=== PATIENT | male | born 1980 | race African-American/Black ===

== ENCOUNTER 2018-05-06 19:29 | Emergency (ER) | payer OTHER ==
[~2018-05-06] VITALS: Ht 177.8 cm; Wt 49.9 kg
--- NOTE | 2018-05-06 21:33 | Emergency Room Report ---
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 Patient also reports swelling and tenderness to the right midfoot times one day. Patient states that he may have overworked himself ambulating yesterday which could've caused his symptoms. Patient denies new acute symptoms otherwise. Patient states that he has had difficulty multiple boarding tears and many are "filthy and unlivable for him." Patient states that he would like to be admitted to a new nursing facility preferably one that is nonsmoking. Patient denies trauma or fall otherwise he denies fevers, chills. 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 He is also requesting splints that he can eat his food. Denies CP, Palpitations, LOC, AMS, dizziness, Changes in Vision, Sensation, paresthesias, or a sudden severe headache. Allergies: Coded Allergies: No Known Allergies (Unverified , 05/06/18) Patient History Past Medical History: see triage record Past Surgical History: none Pertinent Family History: none Reviewed Nursing Documentation: PMH: Agreed; PSxH: Agreed Nursing Documentation-PMH Past Medical History: No History, Except For Hx Neurological Problems: No - "Chronic weight loss" "Locked Jaw" Review of Systems All Other Systems: limited - poor pt. cooperation Physical Exam Vital Signs Date Time Temp Pulse Resp B/P (MAP) Pulse Ox O2 Delivery O2 Flow Rate FiO2 05/06/18 19:35 97.7 60 16 114/85 98 Room Air 97.7 Sp02 EP Interpretation: reviewed, normal General Appearance: no apparent distress, alert, GCS 15, non-toxic, thin, Chronically Ill Head: normocephalic, atraumatic Eyes: bilateral eye normal inspection, bilateral eye PERRL ENT: hearing grossly normal, normal voice, other - spastic neck, frozen jaw. Neck: full range of motion, no bony tend Respiratory: chest non-tender, lungs clear, normal breath sounds, no wheezing, speaking full sentences Cardiovascular #1: regular rate, rhythm, no edema, normal capillary refill Gastrointestinal: normal bowel sounds, non tender, soft Rectal: deferred Musculoskeletal: back normal, normal range of motion, tender - TTP to the midplantar aspect of the right foot, mild swelling noted, no erythema, no increased temperature to palpation, no obvious FB, no open wounds Neurologic: alert, oriented x3, responsive, motor strength/tone normal, sensory intact, speech normal, grossly normal Psychiatric: judgement/insight normal Skin: normal color, no rash, warm/dry, well hydrated Medical Decision Making PA Attestation Dr. Gaona is my supervising Physician whom patient management has been discussed with. Diagnostic Impression: Primary Impression: Malnutrition Qualified Codes: E46 - Unspecified protein-calorie malnutrition Additional Impressions: Foot contusion Qualified Codes: S90.31XA - Contusion of right foot, initial encounter Limited jaw ROM ER Course 37-year-old male presents emergency department complaining of inability to eat 2 years secondary to LOC jaw. Patient also reports swelling and tenderness to the right midfoot times one day. Patient states that he may have overworked himself ambulating yesterday which could've caused his symptoms. Patient denies new acute symptoms otherwise. Patient states that he has had difficulty multiple boarding tears and many are "filthy and unlivable for him." Patient states that he would like to be admitted to a new nursing facility preferably one that is nonsmoking. Patient denies trauma or fall otherwise he denies fevers, chills. 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 He is also requesting splints that he can eat his food. Denies CP, Palpitations, LOC, AMS, dizziness, Changes in Vision, Sensation, paresthesias, or a sudden severe headache. Ddx considered but are not limited to Fracture, dislocation, contusion, Sprain/ Strain/Spasm, Malingering, malnutrition, failure to thrive just to name a few. Vital signs: are WNL, pt. is afebrile H&PE are most consistent with musculoskeletal injury will perform imaging to r/ o fractures/dislocations. - This patient is nontoxic in appearance he is in no acute distress he is very thin and appears to have chronic condition. Patient is well kept otherwise, alert and speaking full sentences. I do not suspect an acute emergent condition at this time but we will evaluate for new onset of foot symptoms. ORDERS: - X-ray Right Foot - negative for fx, Dislocation, or significant soft tissue injury, per preliminary read in ED, and signed by COMPA Alcantara, my supervising physician has reviewed, and agrees with my interpretation. ED INTERVENTIONS: - this patient refuses to have blood work performed, states he will only give urine. This patient was noted to have a hospital wrist band for [facility] patient did not want to discuss information regarding his visit. Patient also was refusing any laboratory work at today's visit. Patient medical records were obtained from [facility] emergency Department patient was there at approximately 9:00 this morning presenting with similar complaints he was evaluated and noted to not be having an acute emergency. Pt. also was refusing blood work at ED visit this am according to pt. medical records. It was charted that patient was seen by director of social media marketing who attempted to replace patient pack Boarding care for which he did not want to go to. It was also noted in the chart that patient was discharged and he returned back into the waiting room requesting to be evaluated again. Was charted several times that patient was demanding to be placed in a new facility because he is not happy with his current facility. I discussed with this patient that he is been evaluated by 2 different emergency departments at this time he needs to utilize the resources that were given to him by the director of social media marketing at [facility]. I also stated that I would provide additional resources that he can choose from. DISCHARGE: At this time pt. is stable for d/c to home. Will provide printed patient care instructions, and any necessary prescriptions. Care plan and follow up instructions have been discussed with the patient prior to discharge. Other X-Ray Diagnostic Results Other X-Ray Diagnostic Results : X-Ray ordered: right foot # of Views/Limited Vs Complete: 3 View Indication: Pain EP Interpretation: Yes COMPA Xray: Interpretation reviewed, by supervising MD, and agrees with findings. Interpretation: no dislocation, no soft tissue swelling, no fractures Impression: No acute disease Electronically Signed by: Rosa Alcantara PA-C Last Vital Signs Date Time Temp Pulse Resp B/P (MAP) Pulse Ox O2 Delivery O2 Flow Rate FiO2 05/06/18 19:35 97.7 60 16 114/85 98 Room Air 97.7 Disposition: HOME, SELF-CARE Condition: Stable Patient Instructions: Medical Screening Exam Additional Instructions: Please utilize resources that were given to this morning by [facility] director of social media marketing.. Included are also some additional resources for you. Take any previously prescribed medications as directed. Follow up with a Primary Care Provider in 3-5 days, even if your symptoms have resolved. - Please note that this Emergency Department Report was dictated using Tap2printvessel master technology software, occasionally this can lead to erroneous entry secondary to interpretation by the dictation equipment. Rosa Alcantara May 06, 2018 21:32
[2018-05-06 22:13] VITALS: BP 114/85
--- NOTE | 2018-05-07 11:04 | Diagnostic Imaging Report ---
Indication: Left foot pain Technique: 3 views left foot Comparison: none Findings: There are small plantar and calcaneal spurs. No acute fractures. No dislocations. The joint spaces are preserved Impression: Negative
== END 2018-05-06 22:15 | disposition home or self-care (01) ==
LOC: EMR 20:15
DX: E46 Unspecified protein-calorie malnutrition (principal); S90.121A Contusion of right lesser toe(s) without damage to nail, initial encounter
CPT/HCPCS: 99283

== ENCOUNTER 2018-10-10 16:03 | Inpatient (IN) | payer OTHER ==
[~2018-10-10] VITALS: Ht 180.3 cm; Wt 59.0 kg
[2018-10-10 16:03] VITALS: BP 112/76
--- NOTE | 2018-10-10 16:20 | Emergency Room Report ---
History of Present Illness General Chief Complaint: Generalized Weakness Source: Patient, Medical Record Present Illness HPI Patient is a 37-year-old male who presented after increased generalized weakness. Patient reportedly had been noted to be the debilitated after a prior CVA. Patient prior history of depression and anxiety. Patient been noted to have increased difficulty with eating patient reports not being able to open his mouth since prior CVA. The patient states that he's been unable to get out of bed for several days. The patient does not report taking any medications recently. The patient was the previously residing [facility].Patient was noted to be type II diabetic. Allergies: Coded Allergies: No Known Allergies (Unverified , 05/06/18) Patient History Past Medical History: see triage record Reviewed Nursing Documentation: PMH: Agreed; PSxH: Agreed Nursing Documentation-PMH Past Medical History: No History, Except For Hx Cardiac Problems: No - anemia Hx COPD: Yes Hx Diabetes: Yes - type II Hx Neurological Problems: No - "Chronic weight loss" "Locked Jaw" Hx Cerebrovascular Accident: Yes Review of Systems All Other Systems: negative except mentioned in HPI Physical Exam Vital Signs Date Time Temp Pulse Resp B/P (MAP) Pulse Ox O2 Delivery O2 Flow Rate FiO2 10/10/18 15:58 97.9 108 18 115/81 100 Nasal Cannula 2.0 Sp02 EP Interpretation: reviewed, normal General Appearance: normal inspection, well appearing, no apparent distress, alert, GCS 15, thin, Chronically Ill Head: atraumatic ENT: hearing grossly normal, normal voice, other - decreased ROM, doesn't open mouth Neck: normal inspection, full range of motion, supple, no bony tend Respiratory: normal inspection, lungs clear, normal breath sounds, no respiratory distress, no retraction, no wheezing Cardiovascular #1: regular rate, rhythm, no edema Gastrointestinal: normal inspection, normal bowel sounds, non tender, soft, no guarding, no hernia Genitourinary: no CVA tenderness Musculoskeletal: normal inspection, back normal, normal range of motion Neurologic: normal inspection, alert, oriented x3, responsive, rehab specialist III-XII nml as tested, speech normal Psychiatric: normal inspection, judgement/insight normal, mood/affect normal, depressed affect Skin: normal inspection, normal color, no rash Medical Decision Making Diagnostic Impression: Primary Impression: Episode of generalized weakness Additional Impression: Failure to thrive ER Course Patient presented for generalized weakness. Differential diagnosis included was not limited to anemia, urinary tract infection, electrolyte abnormality, hypothyroidism, myocardial infarction, myasthenia gravis, dehydration, among others. Because of complexity of patient's case laboratory testing and imaging studies were ordered. The patient started on IV hydration. Patient was noted to be somewhat poor restrained due to prior CVA. Patient was noted to be mildly tachycardic. The patient be admitted for further management of weakness and malnutrition. Dr. Rolando Albright was contacted for inpatient management due to primary care physician. Labs Test 10/10/18 16:40 White Blood Count 7.7 K/UL (4.8-10.8) Red Blood Count 3.75 M/UL (4.70-6.10) Hemoglobin 11.1 G/DL (14.2-18.0) Hematocrit 32.1 % (42.0-52.0) Mean Corpuscular Volume 86 FL (80-99) Mean Corpuscular Hemoglobin 29.6 PG (27.0-31.0) Mean Corpuscular Hemoglobin Concent 34.6 G/DL (32.0-36.0) Red Cell Distribution Width 10.9 % (11.6-14.8) Platelet Count 642 K/UL (150-450) Mean Platelet Volume 5.6 FL (6.5-10.1) Neutrophils (%) (Auto) 50.3 % (45.0-75.0) Lymphocytes (%) (Auto) 40.0 % (20.0-45.0) Monocytes (%) (Auto) 6.3 % (1.0-10.0) Eosinophils (%) (Auto) 1.1 % (0.0-3.0) Basophils (%) (Auto) 2.2 % (0.0-2.0) Prothrombin Time 11.4 SEC (9.30-11.50) Prothromb Time International Ratio 1.1 (0.9-1.1) Activated Partial Thromboplast Time 33 SEC (23-33) Sodium Level 136 MMOL/L (136-145) Potassium Level 4.1 MMOL/L (3.5-5.1) Chloride Level 103 MMOL/L (98-107) Carbon Dioxide Level 28 MMOL/L (21-32) Anion Gap 5 mmol/L (5-15) Blood Urea Nitrogen 8 mg/dL (7-18) Creatinine 0.7 MG/DL (0.55-1.30) Estimat Glomerular Filtration Rate > 60 mL/min (>60) Glucose Level 104 MG/DL (74-106) Calcium Level 8.4 MG/DL (8.5-10.1) Total Bilirubin 0.3 MG/DL (0.2-1.0) Aspartate Amino Transf (AST/SGOT) 12 U/L (15-37) Alanine Aminotransferase (ALT/SGPT) 7 U/L (12-78) Alkaline Phosphatase 79 U/L (46-116) Total Protein 9.3 G/DL (6.4-8.2) Albumin 2.3 G/DL (3.4-5.0) Globulin 7.0 g/dL Albumin/Globulin Ratio 0.3 (1.0-2.7) Thyroid Stimulating Hormone (TSH) 0.847 uiU/mL (0.358-3.740) Acetaminophen Level < 2 MCG/ML (10-30) Serum Alcohol < 3 mg/dL Acetone Level Negative (NEGATIVE) Last Vital Signs Date Time Temp Pulse Resp B/P (MAP) Pulse Ox O2 Delivery O2 Flow Rate FiO2 10/10/18 15:58 97.9 108 18 115/81 100 Nasal Cannula 2.0 Status: unchanged Disposition: ADMITTED INPATIENT Condition: Serious Scripts Unable to Obtain Active Prescriptions or Reported MedSahil Ingram MD Oct 10, 2018 16:20
[2018-10-10] MEDS ORDERED: Ketorolac 30mg Inj IV ONE (16:45)
[2018-10-10 17:00] VITALS: BP 120/77
[2018-10-10 17:00] LABS: BASOPHILS % (AUTO) 2.2 % (0.0-2.0); EOSINOPHILS % (AUTO) 1.1 % (0.0-3.0); HEMATOCRIT 32.1 % (42.0-52.0); HEMOGLOBIN 11.1 G/DL (14.2-18.0); MEAN CORPUSCULAR VOLUME 86 FL (80-99); MONOCYTES % (AUTO) 6.3 % (1.0-10.0); NEUTROPHILS % (AUTO) 50.3 % (45.0-75.0); PLATELET COUNT 642 K/UL (150-450); RED BLOOD COUNT 3.75 M/UL (4.70-6.10); RED CELL DISTRIBUTION WIDTH 10.9 % (11.6-14.8); WHITE BLOOD COUNT 7.7 K/UL (4.8-10.8)
[2018-10-10 17:12] LABS: INR 1.1 (0.9-1.1)
[2018-10-10 17:19] LABS: ANION GAP 5 mmol/L (5-15); BLOOD UREA NITROGEN 8 mg/dL (7-18); CALCIUM 8.4 MG/DL (8.5-10.1); CARBON DIOXIDE 28 MMOL/L (21-32); CHLORIDE 103 MMOL/L (98-107); CREATININE 0.7 MG/DL (0.55-1.30); POTASSIUM 4.1 MMOL/L (3.5-5.1); SODIUM 136 MMOL/L (136-145)
[2018-10-10 17:32] LABS: ALANINE AMINOTRANSFERASE 7 U/L (12-78); ALBUMIN 2.3 G/DL (3.4-5.0); ALBUMIN/GLOBULIN RATIO 0.3 (1.0-2.7); ALKALINE PHOSPHATASE 79 U/L (46-116); ASPARTATE AMINO TRANSFERASE 12 U/L (15-37); BILIRUBIN,TOTAL 0.3 MG/DL (0.2-1.0)
[2018-10-10 18:15] VITALS: BP 118/73
[2018-10-10 20:00] VITALS: BP 101/63
[2018-10-10] MEDS ORDERED: Miralax 17gm pkt ORAL PRN (21:30)
[2018-10-10] MEDS ORDERED: Mylanta II UD 30ml ORAL PRN (21:30)
[2018-10-10] MEDS ORDERED: LORazepam Inj 2mg/ml 1ml IV PRN (21:30)
[2018-10-10] MEDS ORDERED: Zolpidem 5mg tab ORAL PRN (21:30)
[2018-10-10] MEDS: Morphine Sulfate 2mg/ml Inj IVP PRN (21:44)
[2018-10-10 21:49] VITALS: BP 100/68
[2018-10-11 04:00] VITALS: BP 101/59
[2018-10-11] MEDS: NovoLOG Insulin Flexpen SUBQ SCH ×4 (06:30→20:31)
[2018-10-11 08:00] VITALS: BP 137/69
[2018-10-11] MEDS: Heparin 5000 units/ml inj SUBQ SCH ×2 (09:21→20:30)
--- NOTE | 2018-10-11 10:11 | Diagnostic Imaging Report ---
Indication: Shortness of breath Technique: One view of the chest Comparison: none Findings: Lungs and pleural spaces are clear. Heart size is normal Impression: No acute process
--- NOTE | 2018-10-11 11:35 | GI Initial Consult Note ---
History of Present Illness General Date patient seen: Oct 11, 2018 Time patient seen: 11:30 Reason for Hospitalization: Generalized Weakness Referring physician: EL ANTONIO Reason for Consultation: DYSPHAGIA Present Illness HPI Patient is a 37-year-old male who presented after increased generalized weakness. Patient reportedly had been noted to be the debilitated after a prior CVA. Patient prior history of depression and anxiety. Patient been noted to have increased difficulty with eating patient reports not being able to open his mouth since prior CVA. The patient states that he's been unable to get out of bed for several days. The patient does not report taking any medications recently. The patient was the previously residing at a [facility].Patient was noted to be type II diabetic. GI consulted for dysphagia. Pt seen, awake A&Ox4 NAD with reports of abdominal discomfort. Denied any N/V/D or constipation. Presents with anemia. No history of endoscopy / colonoscopy. Home Meds Unable to Obtain Active Prescriptions or Reported Meds Med list reviewed/reconciled: Yes Allergies: Coded Allergies: No Known Allergies (Unverified , 05/06/18) Patient History History Provided By: Patient, Medical Record PMH Narrative Past Medical History: see triage record Reviewed Nursing Documentation: PMH: Agreed; PSxH: Agreed Nursing Documentation-PMH Past Medical History: No History, Except For Hx Cardiac Problems: No - anemia Hx COPD: Yes Hx Diabetes: Yes - type II Hx Neurological Problems: No - "Chronic weight loss" "Locked Jaw" Hx Cerebrovascular Accident: Yes Social History: Denies: smoking, alcohol use, drug use, other Review of Systems All Other Systems: negative except mentioned in HPI Physical Exam Vital Signs Date Time Temp Pulse Resp B/P (MAP) Pulse Ox O2 Delivery O2 Flow Rate FiO2 10/10/18 15:58 97.9 108 18 115/81 100 Nasal Cannula 2.0 Sp02 EP Interpretation: reviewed, normal Labs Laboratory Tests Test 10/10/18 16:40 White Blood Count 7.7 K/UL (4.8-10.8) Red Blood Count 3.75 M/UL (4.70-6.10) L Hemoglobin 11.1 G/DL (14.2-18.0) L Hematocrit 32.1 % (42.0-52.0) L Mean Corpuscular Volume 86 FL (80-99) Mean Corpuscular Hemoglobin 29.6 PG (27.0-31.0) Mean Corpuscular Hemoglobin Concent 34.6 G/DL (32.0-36.0) Red Cell Distribution Width 10.9 % (11.6-14.8) L Platelet Count 642 K/UL (150-450) H Mean Platelet Volume 5.6 FL (6.5-10.1) L Neutrophils (%) (Auto) 50.3 % (45.0-75.0) Lymphocytes (%) (Auto) 40.0 % (20.0-45.0) Monocytes (%) (Auto) 6.3 % (1.0-10.0) Eosinophils (%) (Auto) 1.1 % (0.0-3.0) Basophils (%) (Auto) 2.2 % (0.0-2.0) H Prothrombin Time 11.4 SEC (9.30-11.50) Prothromb Time International Ratio 1.1 (0.9-1.1) Activated Partial Thromboplast Time 33 SEC (23-33) Sodium Level 136 MMOL/L (136-145) Potassium Level 4.1 MMOL/L (3.5-5.1) Chloride Level 103 MMOL/L (98-107) Carbon Dioxide Level 28 MMOL/L (21-32) Anion Gap 5 mmol/L (5-15) Blood Urea Nitrogen 8 mg/dL (7-18) Creatinine 0.7 MG/DL (0.55-1.30) Estimat Glomerular Filtration Rate > 60 mL/min (>60) Glucose Level 104 MG/DL (74-106) Calcium Level 8.4 MG/DL (8.5-10.1) L Total Bilirubin 0.3 MG/DL (0.2-1.0) Aspartate Amino Transf (AST/SGOT) 12 U/L (15-37) L Alanine Aminotransferase (ALT/SGPT) 7 U/L (12-78) L Alkaline Phosphatase 79 U/L (46-116) Total Protein 9.3 G/DL (6.4-8.2) H Albumin 2.3 G/DL (3.4-5.0) L Globulin 7.0 g/dL Albumin/Globulin Ratio 0.3 (1.0-2.7) L Thyroid Stimulating Hormone (TSH) 0.847 uiU/mL (0.358-3.740) Acetaminophen Level < 2 MCG/ML (10-30) L Serum Alcohol < 3 mg/dL Acetone Level Negative (NEGATIVE) General Appearance: well appearing, no apparent distress, alert, thin Head: normocephalic EENT: PERRL/EOMI, normal ENT inspection Neck: supple Respiratory: normal breath sounds, no respiratory distress Cardiovascular: normal rate Gastrointestinal: normal inspection, non tender, soft, normal bowel sounds, non -distended Rectal: deferred Genitourinary: deferred Musculoskeletal: normal inspection, back normal Neurologic: normal inspection, alert, oriented x3, responsive Psychiatric: normal inspection, judgement/insight normal, memory normal Skin: normal inspection, normal color, no rash, warm/dry, palpation normal, well hydrated Lymphatic: normal inspection, no adenopathy Current Medications Current Medications Medications (Trade) Dose Ordered Sig/Tresa Route PRN Reason Start Time Stop Time Status Last Admin Dose Admin Acetaminophen (Tylenol) 650 mg Q4H PRN ORAL fever 10/10/18 21:30 11/09/18 21:29 Al Hydroxide/Mg Hydroxide (Mylanta II) 30 ml Q6H PRN ORAL dyspepsia 10/10/18 21:30 11/09/18 21:29 Dextrose (Dextrose 50%) 25 ml Q30M PRN IV Hypoglycemia 10/10/18 21:30 11/09/18 21:29 Dextrose (Dextrose 50%) 50 ml Q30M PRN IV Hypoglycemia 10/10/18 21:30 11/09/18 21:29 Heparin Sodium (Porcine) (Heparin 5000 units/ml) 5,000 units EVERY 12 HOURS SUBQ 10/11/18 09:00 11/10/18 08:59 10/11/18 09:21 Insulin Aspart (NovoLOG) BEFORE MEALS AND HS SUBQ 10/11/18 06:30 11/10/18 06:29 Lorazepam (Ativan 2mg/ml 1ml) 0.5 mg Q4H PRN IV For Anxiety 10/10/18 21:30 10/17/18 21:29 Morphine Sulfate (Morphine Sulfate) 1 mg EVERY 4 HOURS PRN IVP For Pain 10/10/18 21:30 10/17/18 21:29 10/10/18 21:44 Ondansetron HCl (Zofran) 4 mg Q6H PRN IVP Nausea & Vomiting 10/10/18 21:30 11/09/18 21:29 Polyethylene Glycol (Miralax) 17 gm HSPRN PRN ORAL Constipation 10/10/18 21:30 11/09/18 21:29 Risperidone (RisperDAL) 1 mg BID ORAL 10/11/18 09:00 11/10/18 08:59 10/11/18 09:19 Zolpidem Tartrate (Ambien) 5 mg HSPRN PRN ORAL Insomnia 10/10/18 21:30 10/17/18 21:29 10/10/18 21:43 GI: Plan Problems: (1) Dysphagia (2) Severe malnutrition (3) Anemia (4) Episode of generalized weakness (5) Failure to thrive Plan s/p CVA PEG if necessary supportive care at this time ST evaluation ordered calorie count anemia work up OB stool r/o GI bleed monitor H&H, prn transfusions bowel regime >> colace daily ppi fu labs Discussed with Dr. Wilson. Thank you for this patient referral, we will follow. The patient was seen and examined at bedside and all new and available data was reviewed in the patients chart. I agree with the above findings, impression and plan. (Patient seen earlier today. Signature stamp does not reflect patient encounter time.). - MD Yolanda [facility] [employer] Oct 11, 2018 11:35
[2018-10-11 12:00] VITALS: BP 110/63
--- NOTE | 2018-10-11 14:50 | Consultation ---
History of Present Illness General Date patient seen: Oct 11, 2018 Chief Complaint: Generalized Weakness Referring physician: EL ANTONIO Reason for Consultation: DYSPHAGIA Present Illness HPI 37-year-old male with hx of CVA, DM, history of depression and anxiety, presented to ER with CC of increased generalized weakness. He had increased difficulty with eating patient reports not being able to open his mouth since prior CVA. The patient states that he's been unable to get out of bed for several days. Allergies: Coded Allergies: No Known Allergies (Unverified , 05/06/18) Medication History Unable to Obtain Active Prescriptions or Reported Meds Patient History Healthcare decision maker Resuscitation status Full Code Advanced Directive on File Past Medical/Surgical History Past Medical/Surgical History: (1) Diabetes mellitus (2) History of CVA (cerebrovascular accident) Review of Systems All Other Systems: negative except mentioned in HPI Physical Exam General Appearance: cachetic Lines, tubes and drains: peripheral HEENT: normocephalic, atraumatic Neck: non-tender, normal alignment Respiratory/Chest: chest wall non-tender, lungs clear Cardiovascular/Chest: normal peripheral pulses, normal rate Genitourinary/Rectal: normal genital exam, normal prostate exam Last 24 Hour Vital Signs Date Time Temp Pulse Resp B/P (MAP) Pulse Ox O2 Delivery O2 Flow Rate FiO2 10/11/18 08:00 98.1 82 19 137/69 (91) 98 10/11/18 04:00 96.8 62 16 101/59 (73) 100 10/10/18 23:11 Room Air 10/10/18 21:49 98.1 76 17 100/68 (79) 97 10/10/18 20:44 97.9 96 15 101/63 97 Room Air 2.0 10/10/18 20:00 97.9 96 15 101/63 97 Room Air 2.0 10/10/18 18:15 97.9 96 15 118/73 96 Room Air 10/10/18 17:00 98.0 86 12 120/77 100 Room Air 10/10/18 16:03 95 17 Room Air 10/10/18 16:03 98.0 95 17 112/76 100 Nasal Cannula 2.0 10/10/18 15:58 97.9 108 18 115/81 100 Nasal Cannula 2.0 Intake and Output 10/10/18 10/11/18 19:00 07:00 Intake Total 1000 ml 600 ml Output Total 600 ml Balance 1000 ml 0 ml Intake Oral 600 ml IV Total 1000 ml Output Urine Total 600 ml # Voids 1 1 Laboratory Tests Test 10/10/18 16:40 White Blood Count 7.7 K/UL (4.8-10.8) Red Blood Count 3.75 M/UL (4.70-6.10) L Hemoglobin 11.1 G/DL (14.2-18.0) L Hematocrit 32.1 % (42.0-52.0) L Mean Corpuscular Volume 86 FL (80-99) Mean Corpuscular Hemoglobin 29.6 PG (27.0-31.0) Mean Corpuscular Hemoglobin Concent 34.6 G/DL (32.0-36.0) Red Cell Distribution Width 10.9 % (11.6-14.8) L Platelet Count 642 K/UL (150-450) H Mean Platelet Volume 5.6 FL (6.5-10.1) L Neutrophils (%) (Auto) 50.3 % (45.0-75.0) Lymphocytes (%) (Auto) 40.0 % (20.0-45.0) Monocytes (%) (Auto) 6.3 % (1.0-10.0) Eosinophils (%) (Auto) 1.1 % (0.0-3.0) Basophils (%) (Auto) 2.2 % (0.0-2.0) H Prothrombin Time 11.4 SEC (9.30-11.50) Prothromb Time International Ratio 1.1 (0.9-1.1) Activated Partial Thromboplast Time 33 SEC (23-33) Sodium Level 136 MMOL/L (136-145) Potassium Level 4.1 MMOL/L (3.5-5.1) Chloride Level 103 MMOL/L (98-107) Carbon Dioxide Level 28 MMOL/L (21-32) Anion Gap 5 mmol/L (5-15) Blood Urea Nitrogen 8 mg/dL (7-18) Creatinine 0.7 MG/DL (0.55-1.30) Estimat Glomerular Filtration Rate > 60 mL/min (>60) Glucose Level 104 MG/DL (74-106) Calcium Level 8.4 MG/DL (8.5-10.1) L Total Bilirubin 0.3 MG/DL (0.2-1.0) Aspartate Amino Transf (AST/SGOT) 12 U/L (15-37) L Alanine Aminotransferase (ALT/SGPT) 7 U/L (12-78) L Alkaline Phosphatase 79 U/L (46-116) Total Protein 9.3 G/DL (6.4-8.2) H Albumin 2.3 G/DL (3.4-5.0) L Globulin 7.0 g/dL Albumin/Globulin Ratio 0.3 (1.0-2.7) L Thyroid Stimulating Hormone (TSH) 0.847 uiU/mL (0.358-3.740) Acetaminophen Level < 2 MCG/ML (10-30) L Serum Alcohol < 3 mg/dL Acetone Level Negative (NEGATIVE) Height (Feet): 5 Height (Inches): 11.00 Weight (Pounds): 150 Medications Current Medications Medications (Trade) Dose Ordered Sig/Tresa Route PRN Reason Start Time Stop Time Status Last Admin Dose Admin Acetaminophen (Tylenol) 650 mg Q4H PRN ORAL fever 10/10/18 21:30 11/09/18 21:29 Al Hydroxide/Mg Hydroxide (Mylanta II) 30 ml Q6H PRN ORAL dyspepsia 10/10/18 21:30 11/09/18 21:29 Dextrose (Dextrose 50%) 25 ml Q30M PRN IV Hypoglycemia 10/10/18 21:30 11/09/18 21:29 Dextrose (Dextrose 50%) 50 ml Q30M PRN IV Hypoglycemia 10/10/18 21:30 11/09/18 21:29 Heparin Sodium (Porcine) (Heparin 5000 units/ml) 5,000 units EVERY 12 HOURS SUBQ 10/11/18 09:00 11/10/18 08:59 10/11/18 09:21 Insulin Aspart (NovoLOG) BEFORE MEALS AND HS SUBQ 10/11/18 06:30 11/10/18 06:29 Lorazepam (Ativan 2mg/ml 1ml) 0.5 mg Q4H PRN IV For Anxiety 10/10/18 21:30 10/17/18 21:29 Morphine Sulfate (Morphine Sulfate) 1 mg EVERY 4 HOURS PRN IVP For Pain 10/10/18 21:30 10/17/18 21:29 10/10/18 21:44 Ondansetron HCl (Zofran) 4 mg Q6H PRN IVP Nausea & Vomiting 10/10/18 21:30 11/09/18 21:29 Polyethylene Glycol (Miralax) 17 gm HSPRN PRN ORAL Constipation 10/10/18 21:30 11/09/18 21:29 Risperidone (RisperDAL) 1 mg BID ORAL 10/11/18 09:00 11/10/18 08:59 10/11/18 09:19 Zolpidem Tartrate (Ambien) 5 mg HSPRN PRN ORAL Insomnia 10/10/18 21:30 10/17/18 21:29 10/10/18 21:43 Assessment/Plan Problem List: (1) Dysphagia ICD Codes: R13.10 - Dysphagia, unspecified SNOMED: 38423256, 370896370 (2) Protein-calorie malnutrition, severe ICD Codes: E43 - Unspecified severe protein-calorie malnutrition SNOMED: 797577453 (3) Anemia ICD Codes: D64.9 - Anemia, unspecified SNOMED: 337702782 (4) Diabetes mellitus ICD Codes: E11.9 - Type 2 diabetes mellitus without complications SNOMED: 99809737 (5) History of CVA (cerebrovascular accident) ICD Codes: Z86.73 - Personal history of transient ischemic attack (TIA), and cerebral infarction without residual deficits SNOMED: 248650396 Assessment/Plan swallow evaluation calore count GI evaluation. Galilea Macias MD Oct 11, 2018 14:50
--- NOTE | 2018-10-11 14:51 | Consultation ---
Consult Note Consult Note Hematology Oncology Consult Note Date patient seen: Oct 11, 2018 Time patient seen: 11:30 Reason for Hospitalization: Generalized Weakness Referring physician: EL ANTONIO Reason for Consultation: FTT, Hyperproteinemia, Anemia Present Illness HPI Patient is a 37-year-old male who presented after increased generalized weakness. Patient reportedly had been noted to be the debilitated after a prior CVA. Patient prior history of depression and anxiety. Patient been noted to have increased difficulty with eating patient reports not being able to open his mouth since prior CVA. The patient states that he's been unable to get out of bed for several days. The patient does not report taking any medications recently. The patient was the previously residing at a [facility].Patient was noted to be type II diabetic. GI consulted for dysphagia. Pt seen, awake A&Ox4 NAD with reports of abdominal discomfort. Denied any N/V/D or constipation. Presents with anemia. No history of endoscopy / colonoscopy. Hematology was consulted for hyperproteinemia and ftt. Home Meds Unable to Obtain Active Prescriptions or Reported Meds Med list reviewed/reconciled: Yes Allergies: Coded Allergies: No Known Allergies (Unverified , 05/06/18) Patient History History Provided By: Patient, Medical Record PMH Narrative Past Medical History: see triage record Reviewed Nursing Documentation: PMH: Agreed; PSxH: Agreed Nursing Documentation-PMH Past Medical History: No History, Except For Hx Cardiac Problems: No - anemia Hx COPD: Yes Hx Diabetes: Yes - type II Hx Neurological Problems: No - "Chronic weight loss" "Locked Jaw" Hx Cerebrovascular Accident: Yes Social History: Denies: smoking, alcohol use, drug use, other Review of Systems All Other Systems: negative except mentioned in HPI Physical Exam Vital Signs Date Time Temp Pulse Resp B/P (MAP) Pulse Ox O2 Delivery O2 Flow Rate FiO2 10/10/18 15:58 97.9 108 18 115/81 100 Nasal Cannula 2.0 Sp02 EP Interpretation: reviewed, normal Labs Laboratory Tests Test 10/10/18 16:40 White Blood Count 7.7 K/UL (4.8-10.8) Red Blood Count 3.75 M/UL (4.70-6.10) L Hemoglobin 11.1 G/DL (14.2-18.0) L Hematocrit 32.1 % (42.0-52.0) L Mean Corpuscular Volume 86 FL (80-99) Mean Corpuscular Hemoglobin 29.6 PG (27.0-31.0) Mean Corpuscular Hemoglobin Concent 34.6 G/DL (32.0-36.0) Red Cell Distribution Width 10.9 % (11.6-14.8) L Platelet Count 642 K/UL (150-450) H Mean Platelet Volume 5.6 FL (6.5-10.1) L Neutrophils (%) (Auto) 50.3 % (45.0-75.0) Lymphocytes (%) (Auto) 40.0 % (20.0-45.0) Monocytes (%) (Auto) 6.3 % (1.0-10.0) Eosinophils (%) (Auto) 1.1 % (0.0-3.0) Basophils (%) (Auto) 2.2 % (0.0-2.0) H Prothrombin Time 11.4 SEC (9.30-11.50) Prothromb Time International Ratio 1.1 (0.9-1.1) Activated Partial Thromboplast Time 33 SEC (23-33) Sodium Level 136 MMOL/L (136-145) Potassium Level 4.1 MMOL/L (3.5-5.1) Chloride Level 103 MMOL/L (98-107) Carbon Dioxide Level 28 MMOL/L (21-32) Anion Gap 5 mmol/L (5-15) Blood Urea Nitrogen 8 mg/dL (7-18) Creatinine 0.7 MG/DL (0.55-1.30) Estimat Glomerular Filtration Rate > 60 mL/min (>60) Glucose Level 104 MG/DL (74-106) Calcium Level 8.4 MG/DL (8.5-10.1) L Total Bilirubin 0.3 MG/DL (0.2-1.0) Aspartate Amino Transf (AST/SGOT) 12 U/L (15-37) L Alanine Aminotransferase (ALT/SGPT) 7 U/L (12-78) L Alkaline Phosphatase 79 U/L (46-116) Total Protein 9.3 G/DL (6.4-8.2) H Albumin 2.3 G/DL (3.4-5.0) L Globulin 7.0 g/dL Albumin/Globulin Ratio 0.3 (1.0-2.7) L Thyroid Stimulating Hormone (TSH) 0.847 uiU/mL (0.358-3.740) Acetaminophen Level < 2 MCG/ML (10-30) L Serum Alcohol < 3 mg/dL Acetone Level Negative (NEGATIVE) General Appearance: well appearing, no apparent distress, alert, thin Head: normocephalic EENT: PERRL/EOMI, normal ENT inspection Neck: supple Respiratory: normal breath sounds, no respiratory distress Cardiovascular: normal rate Gastrointestinal: normal inspection, non tender, soft, normal bowel sounds, non -distended Rectal: deferred Genitourinary: deferred Musculoskeletal: normal inspection, back normal Neurologic: normal inspection, alert, oriented x3, responsive Psychiatric: normal inspection, judgement/insight normal Skin: normal inspection, normal color, no rash, warm/dry Lymphatic: normal inspection, no adenopathy Current Medications Current Medications Medications (Trade) Dose Ordered Sig/Tresa Route PRN Reason Start Time Stop Time Status Last Admin Dose Admin Acetaminophen (Tylenol) 650 mg Q4H PRN ORAL fever 10/10/18 21:30 11/09/18 21:29 Al Hydroxide/Mg Hydroxide (Mylanta II) 30 ml Q6H PRN ORAL dyspepsia 10/10/18 21:30 11/09/18 21:29 Dextrose (Dextrose 50%) 25 ml Q30M PRN IV Hypoglycemia 10/10/18 21:30 11/09/18 21:29 Dextrose (Dextrose 50%) 50 ml Q30M PRN IV Hypoglycemia 10/10/18 21:30 11/09/18 21:29 Heparin Sodium (Porcine) (Heparin 5000 units/ml) 5,000 units EVERY 12 HOURS SUBQ 10/11/18 09:00 11/10/18 08:59 10/11/18 09:21 Insulin Aspart (NovoLOG) BEFORE MEALS AND HS SUBQ 10/11/18 06:30 11/10/18 06:29 Lorazepam (Ativan 2mg/ml 1ml) 0.5 mg Q4H PRN IV For Anxiety 10/10/18 21:30 10/17/18 21:29 Morphine Sulfate (Morphine Sulfate) 1 mg EVERY 4 HOURS PRN IVP For Pain 10/10/18 21:30 10/17/18 21:29 10/10/18 21:44 Ondansetron HCl (Zofran) 4 mg Q6H PRN IVP Nausea & Vomiting 10/10/18 21:30 11/09/18 21:29 Polyethylene Glycol (Miralax) 17 gm HSPRN PRN ORAL Constipation 10/10/18 21:30 11/09/18 21:29 Risperidone (RisperDAL) 1 mg BID ORAL 10/11/18 09:00 11/10/18 08:59 10/11/18 09:19 Zolpidem Tartrate (Ambien) 5 mg HSPRN PRN ORAL Insomnia 10/10/18 21:30 10/17/18 21:29 10/10/18 21:43 Assessment and Recs: (1) Anemia of chronic disease --rule out gi bleed --> anemia panel has been ordered, hgb goal >7 --> gi service has been consulted --> iron iv if indicated --> eval for hemolysis (2) FTT with Severe malnutrition --> could also be related to anemia --> calory count daily --> consider nutrition eval and hydration --> consider use of appetitte stimulants (3) Dysphagia --> may need peg (4) Episode of generalized weakness (5) Hyperproteneimia --> spep and upep have been ordered (6) s/p CVA Appreciate consultation greatly! Jaleel Maravilla MD Oct 11, 2018 14:51
[2018-10-11 16:00] VITALS: BP 115/66
--- NOTE | 2018-10-11 16:45 | History and Physical Report ---
DATE OF ADMISSION: 10/10/2018 TIME SEEN: 1 p.m. CONSULTANTS: 1. Dale Pruett M.D. 2. Galilea Macias M.D. 3. Nikky Dow M.D. 4. Kp Wilson M.D. 5. Jaleel Maravilla M.D. CHIEF COMPLAINT: Failure to thrive, unable to open jaw, psych history. BRIEF HISTORY: A 37-year-old male from assisted living presented to [place] with above-mentioned diagnoses. Currently, calm in bed, slight jaw pain and headache, no complaint. REVIEW OF SYSTEMS: No chest pain. No shortness of breath. No nausea, vomiting, or diarrhea. PAST MEDICAL HISTORY: Failure to thrive, unable to open jaw for the past month, psych history, diabetes, and CVA. PAST SURGICAL HISTORY: None. MEDICATIONS: Include heparin, risperidone, insulin, Tylenol, morphine, Zofran, lorazepam. ALLERGIES: Denies. SOCIAL HISTORY: No smoking. No alcohol. No intravenous drug abuse. FAMILY HISTORY: Noncontributory. PHYSICAL EXAMINATION: GENERAL: Calm in bed, oriented x2, . VITAL SIGNS: Temperature is 98 degrees, pulse 82, respirations 19, and blood pressure 137/69. HEENT: Jaw opens about 30% only, slight pain with movement. CARDIOVASCULAR: No murmur. LUNGS: Distant and clear. ABDOMEN: Bowel sounds positive. Nontender. Nondistended. EXTREMITIES: No cyanosis, clubbing, or edema. NEUROLOGIC: The patient moves all extremities, slightly weak. LABORATORY AND DIAGNOSTIC DATA: Laboratories show hemoglobin is 11 otherwise platelets 642. BMP shows calcium 8.4, AST 12, ALT 7. Albumin 2.3. INR is 1.1. PTT 33. Urine tox is negative. ASSESSMENT: 1. Failure to thrive. 2. Unable to open jaw. 3. Psych history. 4. Diabetes. 5. CVA. 6. Anaemia. 7. Malnutrition. 8. Thrombocytosis. PLAN: 1. Continue previous medication. 2. OT/PT. 3. Dietary evaluation. 4. CBC and BMP in morning. 5. Resume home medications. 6. Blood pressure and blood sugar control. 7. Pain control. Rolando Albright D.O. DR: Heath JOB#: [id number] CC:
[2018-10-12] VITALS: BP 104/74
[2018-10-12 04:00] VITALS: BP 110/69
[2018-10-12] MEDS: NovoLOG Insulin Flexpen SUBQ SCH ×4 (06:30→21:00)
--- NOTE | 2018-10-12 07:01 | General Progress Note ---
Assessment/Plan Assessment/Plan (1) Anemia of chronic disease -- rule out gi bleed --> anemia panel has been ordered, hgb goal >7 --> gi service has been consulted --> iron iv if indicated --> eval for hemolysis (2) FTT with Severe malnutrition --> could also be related to anemia --> calory count daily as required --> consider nutrition eval and hydration --> consider use of appetitte stimulants (3) Dysphagia --> may need peg --> appreciate gi recs (4) Episode of generalized weakness (5) Hyperproteneimia --> spep and upep have been ordered (6) s/p CVA Appreciate consultation greatly! Subjective Constitutional: Denies: no symptoms, chills, diaphoresis, fever, malaise, weakness, other HEENT: Denies: no symptoms, eye pain, blurred vision, tearing, double vision, ear pain, ear discharge, nose pain, nose congestion, throat pain, throat swelling, mouth pain, mouth swelling, other Cardiovascular: Denies: no symptoms, chest pain, edema, irregular heart rate, lightheadedness, palpitations, syncope, other Respiratory: Denies: no symptoms, cough, orthopnea, shortness of breath, SOB with excertion, SOB at rest, sputum, stridor, wheezing, other Gastrointestinal/Abdominal: Denies: no symptoms, abdomen distended, abdominal pain, black stools, tarry stools, blood in stool, constipated, diarrhea, difficulty swallowing, nausea, poor appetite, poor fluid intake, rectal bleeding , vomiting, other Genitourinary: Denies: no symptoms, burning, discharge, frequency, flank pain, hematuria, incontinence, pain, urgency, other Neurologic/Psychiatric: Denies: no symptoms, anxiety, depressed, emotional problems, headache, numbness, paresthesia, pre-existing deficit, seizure, tingling, tremors, weakness, other Endocrine: Denies: no symptoms, excessive sweating, flushing, intolerance to cold, intolerance to heat, increased hunger, increased thirst, increased urine, unexplained weight gain, unexplained weight loss, other Allergies: Coded Allergies: No Known Allergies (Unverified , 05/06/18) Subjective to be seen by gi team, may need peg Objective Last 24 Hour Vital Signs Date Time Temp Pulse Resp B/P (MAP) Pulse Ox O2 Delivery O2 Flow Rate FiO2 10/12/18 04:00 97.8 73 19 110/69 (83) 99 10/12/18 00:00 96.9 82 19 104/74 (84) 98 10/11/18 21:00 Room Air 10/11/18 16:00 98.0 72 18 115/66 (82) 98 10/11/18 12:00 97.7 68 18 110/63 (79) 98 10/11/18 09:00 Room Air 10/11/18 08:00 98.1 82 19 137/69 (91) 98 Intake and Output 10/11/18 10/12/18 19:00 07:00 Intake Total 1220 ml Balance 1220 ml Intake Oral 1220 ml # Voids 5 Laboratory Tests 10/12/18 00:30: Urine Total Protein [Pending], Urine Albumin (%) [Pending], Urine Alpha-1- Globulins (%) [Pending], Urine Jaaih-7-Lgrxecylh (%) [Pending], Urine Beta- Globulin (%) [Pending], Urine Gamma Globulin (%) [Pending], Ur Protein Electrophoresis M-Juve [Pending], Urine Protein Electrophoresis Intrp [Pending] Height (Feet): 5 Height (Inches): 11.00 Weight (Pounds): 150 Objective General Appearance: well appearing, no apparent distress, alert, thin Head: normocephalic EENT: PERRL/EOMI, normal ENT inspection Neck: supple Respiratory: normal breath sounds, no respiratory distress Cardiovascular: normal rate Gl: normal inspection, non tender, soft, normal bowel sounds, nd Rectal: has been deferred Musculoskeletal: normal inspection, back normal Neurologic: normal inspection, alert, oriented x3, is responsive Skin: normal inspection, normal color, no rash, warm/dry Lymphatic: normal inspection, no adenopathy Jaleel Maravilla MD Oct 12, 2018 07:00
[2018-10-12 08:00] VITALS: BP 115/74
[2018-10-12] MEDS: Heparin 5000 units/ml inj SUBQ SCH ×2 (09:59→21:09)
[2018-10-12] MEDS: Morphine Sulfate 2mg/ml Inj IVP PRN ×2 (10:12→17:36)
[2018-10-12 12:00] VITALS: BP 109/80
--- NOTE | 2018-10-12 12:29 | General Progress Note ---
Assessment/Plan Problem List: (1) Failure to thrive SNOMED: 01627808 (2) Anemia ICD Codes: D64.9 - Anemia, unspecified SNOMED: 409837773 (3) Episode of generalized weakness ICD Codes: R53.1 - Weakness SNOMED: 71476149 (4) Diabetes mellitus ICD Codes: E11.9 - Type 2 diabetes mellitus without complications SNOMED: 55891969 (5) History of CVA (cerebrovascular accident) ICD Codes: Z86.73 - Personal history of transient ischemic attack (TIA), and cerebral infarction without residual deficits SNOMED: 938336497 (6) Protein-calorie malnutrition, severe ICD Codes: E43 - Unspecified severe protein-calorie malnutrition SNOMED: 466745361 Status: unchanged Assessment/Plan ot pt diet cbc bmp am dc plan snf Subjective Constitutional: Reports: weakness Allergies: Coded Allergies: No Known Allergies (Unverified , 05/06/18) All Systems: reviewed and negative except above Subjective sleepy calm Objective Last 24 Hour Vital Signs Date Time Temp Pulse Resp B/P (MAP) Pulse Ox O2 Delivery O2 Flow Rate FiO2 10/12/18 09:00 Room Air 10/12/18 08:00 96.6 84 19 115/74 (88) 99 10/12/18 04:00 97.8 73 19 110/69 (83) 99 10/12/18 00:00 96.9 82 19 104/74 (84) 98 10/11/18 21:00 Room Air 10/11/18 16:00 98.0 72 18 115/66 (82) 98 Intake and Output 10/11/18 10/12/18 19:00 07:00 Intake Total 1220 ml 660 ml Output Total 2000 ml Balance 1220 ml -1340 ml Intake Oral 1220 ml 660 ml Output Urine Total 2000 ml # Voids 5 Laboratory Tests 10/12/18 00:30: Urine Total Protein [Pending], Urine Albumin (%) [Pending], Urine Alpha-1- Globulins (%) [Pending], Urine Apklb-2-Pqduotdfq (%) [Pending], Urine Beta- Globulin (%) [Pending], Urine Gamma Globulin (%) [Pending], Ur Protein Electrophoresis M-Juve [Pending], Urine Protein Electrophoresis Intrp [Pending] Height (Feet): 5 Height (Inches): 11.00 Weight (Pounds): 150 General Appearance: lethargic EENT: normal ENT inspection Neck: normal alignment Cardiovascular: normal peripheral pulses, normal rate, regular rhythm Respiratory/Chest: chest wall non-tender, lungs clear, normal breath sounds Abdomen: normal bowel sounds, non tender, soft Extremities: normal inspection Edema: no edema noted Arm (L), no edema noted Arm (R), no edema noted Leg (L), no edema noted Leg (R), no edema noted Pedal (L), no edema noted Pedal (R), no edema noted Generalized Neurologic: motor weakness Skin: normal pigmentation, warm/dry Rolando Albright DO Oct 12, 2018 12:29
[2018-10-12 16:00] VITALS: BP 118/76
--- NOTE | 2018-10-12 16:10 | GI Progress Note ---
Assessment/Plan Problems: (1) History of CVA (cerebrovascular accident) ICD Codes: Z86.73 - Personal history of transient ischemic attack (TIA), and cerebral infarction without residual deficits SNOMED: 726639601 (2) Severe malnutrition ICD Codes: E43 - Unspecified severe protein-calorie malnutrition SNOMED: 09948413 (3) Dysphagia ICD Codes: R13.10 - Dysphagia, unspecified SNOMED: 23281934, 539222527 (4) Anemia ICD Codes: D64.9 - Anemia, unspecified SNOMED: 868589359 (5) Failure to thrive SNOMED: 32160704 (6) Protein-calorie malnutrition, severe ICD Codes: E43 - Unspecified severe protein-calorie malnutrition SNOMED: 717221418 Status: unchanged Status Narrative Discussed with Dr. Wilson. Assessment/Plan s/p CVA ST evaluation noted >> cont current diet supportive care at this time push PO calorie count OB stool r/o GI bleed monitor H&H, prn transfusions bowel regime >> colace daily ppi fu labs The patient was seen and examined at bedside and all new and available data was reviewed in the patients chart. I agree with the above findings, impression and plan. (Patient seen earlier today. Signature stamp does not reflect patient encounter time.). - Kp Wilson MD Subjective Gastrointestinal/Abdominal: Reports: abdominal pain Objective Last 24 Hour Vital Signs Date Time Temp Pulse Resp B/P (MAP) Pulse Ox O2 Delivery O2 Flow Rate FiO2 10/12/18 12:00 98.4 109 20 109/80 (90) 99 10/12/18 09:00 Room Air 10/12/18 08:00 96.6 84 19 115/74 (88) 99 10/12/18 04:00 97.8 73 19 110/69 (83) 99 10/12/18 00:00 96.9 82 19 104/74 (84) 98 10/11/18 21:00 Room Air Intake and Output 10/11/18 10/12/18 19:00 07:00 Intake Total 1220 ml 660 ml Output Total 2000 ml Balance 1220 ml -1340 ml Intake Oral 1220 ml 660 ml Output Urine Total 2000 ml # Voids 5 Laboratory Tests Test 10/12/18 00:30 Urine Total Protein Pending Urine Albumin (%) Pending Urine Koxyg-3-Ekovomakn (%) Pending Urine Jbxjr-1-Yiozywvke (%) Pending Urine Beta-Globulin (%) Pending Urine Gamma Globulin (%) Pending Ur Protein Electrophoresis M-Juve Pending Urine Protein Electrophoresis Intrp Pending Height (Feet): 5 Height (Inches): 11.00 Weight (Pounds): 150 General Appearance: WD/WN, no apparent distress, alert, thin Cardiovascular: normal rate Respiratory/Chest: normal breath sounds, no respiratory distress Abdominal Exam: normal bowel sounds, non tender, soft Extremities: non-tender Miguel Guerrero NP Oct 12, 2018 16:10
[2018-10-13] VITALS (10 sets, daily range): BP systolic 90–165; BP diastolic 49–67
[2018-10-13] MEDS: NovoLOG Insulin Flexpen SUBQ SCH ×4 (06:11→20:32)
--- NOTE | 2018-10-13 07:04 | General Progress Note ---
Assessment/Plan Assessment/Plan (1) Anemia of chronic disease -- rule out gi bleed --> anemia panel has been ordered, hgb goal >7 --> gi service has been consulted --> iron iv if indicated --> eval for hemolysis (2) FTT with Severe malnutrition --> could also be related to anemia --> calory count daily as required --> consider nutrition eval and hydration --> consider use of appetitte stimulants --> oral surgeon eval for lock jaw (3) Dysphagia --> may need peg --> appreciate gi recs --> oral surgeon eval for lock jaw (4) Episode of generalized weakness (5) Hyperproteneimia --> spep and upep have been ordered (6) s/p CVA Appreciate consultation greatly! Subjective Allergies: Coded Allergies: No Known Allergies (Unverified , 05/06/18) Subjective to be seen by gi team refusing care Objective Last 24 Hour Vital Signs Date Time Temp Pulse Resp B/P (MAP) Pulse Ox O2 Delivery O2 Flow Rate FiO2 10/13/18 04:00 97.8 109 18 97/61 (73) 96 10/13/18 00:00 98.4 114 17 99/51 (67) 98 10/12/18 21:00 Room Air 10/12/18 16:00 97.0 81 18 118/76 (90) 99 10/12/18 12:00 98.4 109 20 109/80 (90) 99 10/12/18 09:00 Room Air 10/12/18 08:00 96.6 84 19 115/74 (88) 99 Intake and Output 10/12/18 10/13/18 18:59 06:59 Intake Total 1800 ml 720 ml Output Total 1300 ml Balance 1800 ml -580 ml Intake Oral 1800 ml 720 ml Output Urine Total 1300 ml # Voids 7 4 Height (Feet): 5 Height (Inches): 11.00 Weight (Pounds): 128 General Appearance: confused EENT: normal ENT inspection Neck: normal alignment Cardiovascular: regular rhythm Respiratory/Chest: no respiratory distress Abdomen: soft Extremities: non-tender Edema: mild edema Neurologic: alert Objective General Appearance: well appearing, no apparent distress, alert, thin Head: normocephalic EENT: PERRL/EOMI, normal ENT inspection Neck: supple Respiratory: normal breath sounds, no respiratory distress Cardiovascular: normal rate Gl: normal inspection, non tender, soft, normal bowel sounds, nd Rectal: has been deferred Musculoskeletal: normal inspection, back normal Neurologic: normal inspection, alert, oriented x3, is responsive Skin: normal inspection, normal color, no rash, warm/dry Lymphatic: normal inspection, no adenopathy Jaleel Maravilla MD Oct 13, 2018 07:04
[2018-10-13] MEDS: Heparin 5000 units/ml inj SUBQ SCH ×2 (09:06→20:42)
--- NOTE | 2018-10-13 09:43 | General Progress Note ---
Assessment/Plan Problem List: (1) Failure to thrive SNOMED: 87387620 (2) Anemia ICD Codes: D64.9 - Anemia, unspecified SNOMED: 633271392 (3) Dysphagia ICD Codes: R13.10 - Dysphagia, unspecified SNOMED: 81822418, 526323778 (4) Severe malnutrition ICD Codes: E43 - Unspecified severe protein-calorie malnutrition SNOMED: 46948640 (5) Diabetes mellitus ICD Codes: E11.9 - Type 2 diabetes mellitus without complications SNOMED: 72915001 (6) History of CVA (cerebrovascular accident) ICD Codes: Z86.73 - Personal history of transient ischemic attack (TIA), and cerebral infarction without residual deficits SNOMED: 608082166 (7) Protein-calorie malnutrition, severe ICD Codes: E43 - Unspecified severe protein-calorie malnutrition SNOMED: 902979082 Assessment/Plan s/p CVA ST evaluation noted >> cont current diet supportive care at this time push PO calorie count OB stool r/o GI bleed monitor H&H, prn transfusions bowel regime >> colace daily ppi fu labs add marinol Subjective ROS Limited/Unobtainable: Yes Allergies: Coded Allergies: No Known Allergies (Unverified , 05/06/18) Subjective refused blood draw this morning Objective Last 24 Hour Vital Signs Date Time Temp Pulse Resp B/P (MAP) Pulse Ox O2 Delivery O2 Flow Rate FiO2 10/13/18 08:00 99.0 112 18 100/54 (69) 96 10/13/18 04:00 97.8 109 18 97/61 (73) 96 10/13/18 00:00 98.4 114 17 99/51 (67) 98 10/12/18 21:00 Room Air 10/12/18 16:00 97.0 81 18 118/76 (90) 99 10/12/18 12:00 98.4 109 20 109/80 (90) 99 Intake and Output 10/12/18 10/13/18 19:00 07:00 Intake Total 1800 ml 720 ml Output Total 1300 ml Balance 1800 ml -580 ml Intake Oral 1800 ml 720 ml Output Urine Total 1300 ml # Voids 7 4 Height (Feet): 5 Height (Inches): 11.00 Weight (Pounds): 128 General Appearance: no apparent distress EENT: normal ENT inspection Neck: supple Cardiovascular: normal rate Respiratory/Chest: decreased breath sounds Abdomen: normal bowel sounds, non tender, soft Extremities: non-tender Kp Wilson MD Oct 13, 2018 09:43
[2018-10-13] MEDS ORDERED: Acetaminophen 650 MG SUPP RECTAL PRN ×2 (10:18→10:30)
--- NOTE | 2018-10-13 12:30 | Pulmonology Progress Note ---
Assessment/Plan Problems: (1) Dysphagia (2) Protein-calorie malnutrition, severe (3) Anemia (4) Diabetes mellitus (5) History of CVA (cerebrovascular accident) Assessment/Plan improving f/u GI evaluation Marinol was added. dc planning Subjective ROS Limited/Unobtainable: Yes Constitutional: Reports: no symptoms HEENT: Repors: no symptoms Respiratory: Reports: no symptoms Cardiovascular: Reports: no symptoms Gastrointestinal/Abdominal: Reports: no symptoms Allergies: Coded Allergies: No Known Allergies (Unverified , 05/06/18) Objective Last 24 Hour Vital Signs Date Time Temp Pulse Resp B/P (MAP) Pulse Ox O2 Delivery O2 Flow Rate FiO2 10/13/18 11:20 101.7 130 18 91/52 (65) 97 10/13/18 11:00 101.7 10/13/18 10:36 102.7 132 18 155/64 (94) 96 10/13/18 10:16 102.7 136 18 165/67 (99) 96 10/13/18 08:00 99.0 112 18 100/54 (69) 96 10/13/18 04:00 97.8 109 18 97/61 (73) 96 10/13/18 00:00 98.4 114 17 99/51 (67) 98 10/12/18 21:00 Room Air 10/12/18 16:00 97.0 81 18 118/76 (90) 99 Intake and Output 10/12/18 10/13/18 19:00 07:00 Intake Total 1800 ml 720 ml Output Total 1300 ml Balance 1800 ml -580 ml Intake Oral 1800 ml 720 ml Output Urine Total 1300 ml # Voids 7 4 General Appearance: WD/WN HEENT: normocephalic Respiratory/Chest: lungs clear, normal breath sounds Cardiovascular: normal peripheral pulses, normal rate Abdomen: normal bowel sounds, no organomegaly Genitourinary: normal external genitalia Skin: no rash, no ulcers Microbiology Date/Time Source Procedure Growth Status 10/10/18 18:22 Nasal Nares Right MRSA Culture - Final NO METHICILLIN RESISTANT STAPH AUREUS... Complete Current Medications Medications (Trade) Dose Ordered Sig/Tresa Route PRN Reason Start Time Stop Time Status Last Admin Dose Admin Acetaminophen (Tylenol) 650 mg Q4H PRN ORAL fever 10/10/18 21:30 11/09/18 21:29 10/13/18 10:30 Acetaminophen (Tylenol) 650 mg Q4H PRN RECTAL Mild Pain (Pain Scale 1-3) 10/13/18 10:30 11/12/18 10:17 Al Hydroxide/Mg Hydroxide (Mylanta II) 30 ml Q6H PRN ORAL dyspepsia 10/10/18 21:30 11/09/18 21:29 Dextrose (Dextrose 50%) 25 ml Q30M PRN IV Hypoglycemia 10/10/18 21:30 11/09/18 21:29 Dextrose (Dextrose 50%) 50 ml Q30M PRN IV Hypoglycemia 10/10/18 21:30 11/09/18 21:29 Dronabinol (Marinol) 2.5 mg BID ORAL 10/13/18 18:00 11/12/18 17:59 Heparin Sodium (Porcine) (Heparin 5000 units/ml) 5,000 units EVERY 12 HOURS SUBQ 10/11/18 09:00 11/10/18 08:59 10/13/18 09:06 Insulin Aspart (NovoLOG) BEFORE MEALS AND HS SUBQ 10/11/18 06:30 11/10/18 06:29 Levofloxacin (Levaquin) 750 mg DAILY ORAL 10/13/18 10:49 10/20/18 10:48 10/13/18 11:46 Lorazepam (Ativan 2mg/ml 1ml) 0.5 mg Q4H PRN IV For Anxiety 10/10/18 21:30 10/17/18 21:29 Morphine Sulfate (Morphine Sulfate) 1 mg EVERY 4 HOURS PRN IVP For Pain 10/10/18 21:30 10/17/18 21:29 10/12/18 17:36 Ondansetron HCl (Zofran) 4 mg Q6H PRN IVP Nausea & Vomiting 10/10/18 21:30 11/09/18 21:29 Polyethylene Glycol (Miralax) 17 gm HSPRN PRN ORAL Constipation 10/10/18 21:30 11/09/18 21:29 Risperidone (RisperDAL) 1 mg BID ORAL 10/11/18 09:00 11/10/18 08:59 10/13/18 09:04 Sodium Chloride 1,000 ml @ 999 mls/hr Q1H1M ONCE IV 10/13/18 11:41 10/13/18 12:41 10/13/18 11:47 Zolpidem Tartrate (Ambien) 5 mg HSPRN PRN ORAL Insomnia 10/10/18 21:30 10/17/18 21:29 10/10/18 21:43 Galilea Macias MD Oct 13, 2018 12:30
--- NOTE | 2018-10-13 13:40 | General Progress Note ---
Assessment/Plan Problem List: (1) Failure to thrive SNOMED: 50106234 (2) Anemia ICD Codes: D64.9 - Anemia, unspecified SNOMED: 179673150 (3) Episode of generalized weakness ICD Codes: R53.1 - Weakness SNOMED: 19471871 (4) Diabetes mellitus ICD Codes: E11.9 - Type 2 diabetes mellitus without complications SNOMED: 95946531 (5) History of CVA (cerebrovascular accident) ICD Codes: Z86.73 - Personal history of transient ischemic attack (TIA), and cerebral infarction without residual deficits SNOMED: 314726442 (6) Protein-calorie malnutrition, severe ICD Codes: E43 - Unspecified severe protein-calorie malnutrition SNOMED: 199128693 Status: stable, progressing Assessment/Plan ot pt diet cbc bmp am dc plan snf Subjective Constitutional: Reports: weakness Allergies: Coded Allergies: No Known Allergies (Unverified , 05/06/18) All Systems: reviewed and negative except above Subjective sleepy calm Objective Last 24 Hour Vital Signs Date Time Temp Pulse Resp B/P (MAP) Pulse Ox O2 Delivery O2 Flow Rate FiO2 10/13/18 13:03 99.4 113 18 92/53 (66) 97 10/13/18 11:20 101.7 130 18 91/52 (65) 97 10/13/18 11:00 101.7 10/13/18 10:36 102.7 132 18 155/64 (94) 96 10/13/18 10:16 102.7 136 18 165/67 (99) 96 10/13/18 09:00 Room Air 10/13/18 08:00 99.0 112 18 100/54 (69) 96 10/13/18 04:00 97.8 109 18 97/61 (73) 96 10/13/18 00:00 98.4 114 17 99/51 (67) 98 10/12/18 21:00 Room Air 10/12/18 16:00 97.0 81 18 118/76 (90) 99 Intake and Output 10/12/18 10/13/18 19:00 07:00 Intake Total 1800 ml 720 ml Output Total 1300 ml Balance 1800 ml -580 ml Intake Oral 1800 ml 720 ml Output Urine Total 1300 ml # Voids 7 4 Height (Feet): 5 Height (Inches): 11.00 Weight (Pounds): 128 General Appearance: lethargic EENT: normal ENT inspection Neck: normal alignment Cardiovascular: normal peripheral pulses, normal rate, regular rhythm Respiratory/Chest: chest wall non-tender, lungs clear, normal breath sounds Abdomen: normal bowel sounds, non tender, soft Extremities: normal inspection Edema: no edema noted Arm (L), no edema noted Arm (R), no edema noted Leg (L), no edema noted Leg (R), no edema noted Pedal (L), no edema noted Pedal (R), no edema noted Generalized Neurologic: motor weakness Skin: normal pigmentation, warm/dry Rolando Albright DO Oct 13, 2018 13:40
--- NOTE | 2018-10-13 15:31 | Consultation ---
History of Present Illness General Date patient seen: Oct 13, 2018 Chief Complaint: Generalized Weakness Referring physician: EL ANTONIO Reason for Consultation: DYSPHAGIA Present Illness HPI 37 y/o M with hx of CVA, MDD/Anxiety, Anemia, COPD, DM2 presents to ED on 10/11 with increased generalized weakness, increased difficulty with eating in regards of opening his mouth; unable to get out of bed in the last few days. Denies n/v/d, constipation Allergies: Coded Allergies: No Known Allergies (Unverified , 05/06/18) Medication History Unable to Obtain Active Prescriptions or Reported Meds Patient History Healthcare decision maker Resuscitation status Full Code Advanced Directive on File Patient History Narrative Pmhx : as above Shx:Denies: smoking, alcohol use, drug use, other Fhx: non contributory Review of Systems All Other Systems: negative except mentioned in HPI Physical Exam Physical Exam Narrative GENERAL: Calm in bed, oriented x2, HEENT: Jaw opens about 30% only, slight pain with movement. CARDIOVASCULAR: No murmur. LUNGS: Distant and clear. ABDOMEN: Bowel sounds positive. Nontender. Nondistended. EXTREMITIES: No cyanosis, clubbing, or edema. NEUROLOGIC: The patient moves all extremities, slightly weak. Last 24 Hour Vital Signs Date Time Temp Pulse Resp B/P (MAP) Pulse Ox O2 Delivery O2 Flow Rate FiO2 10/13/18 13:03 99.4 113 18 92/53 (66) 97 10/13/18 11:20 101.7 130 18 91/52 (65) 97 10/13/18 11:00 101.7 10/13/18 10:36 102.7 132 18 155/64 (94) 96 10/13/18 10:16 102.7 136 18 165/67 (99) 96 10/13/18 09:00 Room Air 10/13/18 08:00 99.0 112 18 100/54 (69) 96 10/13/18 04:00 97.8 109 18 97/61 (73) 96 10/13/18 00:00 98.4 114 17 99/51 (67) 98 10/12/18 21:00 Room Air 10/12/18 16:00 97.0 81 18 118/76 (90) 99 Intake and Output 10/12/18 10/13/18 19:00 07:00 Intake Total 1800 ml 720 ml Output Total 1300 ml Balance 1800 ml -580 ml Intake Oral 1800 ml 720 ml Output Urine Total 1300 ml # Voids 7 4 Height (Feet): 5 Height (Inches): 11.00 Weight (Pounds): 128 Medications Current Medications Medications (Trade) Dose Ordered Sig/Tresa Route PRN Reason Start Time Stop Time Status Last Admin Dose Admin Acetaminophen (Tylenol) 650 mg Q4H PRN ORAL fever 10/10/18 21:30 11/09/18 21:29 10/13/18 10:30 Acetaminophen (Tylenol) 650 mg Q4H PRN ORAL Mild Pain (Pain Scale 1-3) 10/13/18 15:15 11/12/18 15:14 Al Hydroxide/Mg Hydroxide (Mylanta II) 30 ml Q6H PRN ORAL dyspepsia 10/10/18 21:30 11/09/18 21:29 Dextrose (Dextrose 50%) 25 ml Q30M PRN IV Hypoglycemia 10/10/18 21:30 11/09/18 21:29 Dextrose (Dextrose 50%) 50 ml Q30M PRN IV Hypoglycemia 10/10/18 21:30 11/09/18 21:29 Dronabinol (Marinol) 2.5 mg BID ORAL 10/13/18 18:00 11/12/18 17:59 Heparin Sodium (Porcine) (Heparin 5000 units/ml) 5,000 units EVERY 12 HOURS SUBQ 10/11/18 09:00 11/10/18 08:59 10/13/18 09:06 Insulin Aspart (NovoLOG) BEFORE MEALS AND HS SUBQ 10/11/18 06:30 11/10/18 06:29 Levofloxacin (Levaquin) 750 mg DAILY ORAL 10/13/18 10:49 10/20/18 10:48 10/13/18 11:46 Lorazepam (Ativan 2mg/ml 1ml) 0.5 mg Q4H PRN IV For Anxiety 10/10/18 21:30 10/17/18 21:29 Morphine Sulfate (Morphine Sulfate) 1 mg EVERY 4 HOURS PRN IVP For Pain 10/10/18 21:30 10/17/18 21:29 10/12/18 17:36 Ondansetron HCl (Zofran) 4 mg Q6H PRN IVP Nausea & Vomiting 10/10/18 21:30 11/09/18 21:29 Polyethylene Glycol (Miralax) 17 gm HSPRN PRN ORAL Constipation 10/10/18 21:30 11/09/18 21:29 Risperidone (RisperDAL) 1 mg BID ORAL 10/11/18 09:00 11/10/18 08:59 10/13/18 09:04 Zolpidem Tartrate (Ambien) 5 mg HSPRN PRN ORAL Insomnia 10/10/18 21:30 10/17/18 21:29 10/10/18 21:43 Assessment/Plan Assessment/Plan Abx: Levaquin 10/13- Assessment: Sepsis- ?source- r/o bacteremia,UTI, influenza -CXR: no acute disease Fever No leukocytosis FTT CVA MDD/Anxiety Anemia COPD DM2 Plan: -Switch empiriC Levaquin to IV vancomycin and Cefepime pending cultures -Start empiric Tamiflu pending influenza sc -u/a w/ reflex, Bcx x2, influenza sc -f/u cx -Monitor CBC/CMP, temperatures -aspiration precautions Thank you for this consultation. Will continue to follow along with you. Discussed with Ally Petit M.D. Oct 13, 2018 15:31
[2018-10-13 17:14] LABS: APPEARANCE,URINE CLEAR; BILIRUBIN, URINE NEGATIVE (NEGATIVE); COLOR,URINE PALE YELLOW; GLUCOSE, URINE (UA) NEGATIVE (NEGATIVE); KETONES,URINE NEGATIVE (NEGATIVE); LEUKOCYTE ESTERASE ,URINE NEGATIVE (NEGATIVE); NITRITE,URINE NEGATIVE (NEGATIVE); PH,URINE 6.5 (4.5-8.0); PROTEIN,URINE 1+ (NEGATIVE); UROBILINOGEN,URINE NORMAL MG/DL (0.0-1.0)
[2018-10-13] MEDS ORDERED: Dronabinol 2.5mg Cap ORAL SCH (18:00)
[2018-10-13] MEDS: Oseltamivir 75mg cap ORAL SCH (18:00)
[2018-10-13] MEDS: Vancomycin 500mg/D5W 110ml IVPB SCH ×2 (18:27)
[2018-10-13] MEDS: Cefepime HCl 1 GM in D5W 55 ML IVPB SCH (20:34)
[2018-10-14] MEDS: Vancomycin 500mg/D5W 110ml IVPB SCH ×4 (01:49→09:30)
[2018-10-14 03:00] VITALS: BP 103/57
[2018-10-14 03:43] VITALS: BP 94/62
[2018-10-14] MEDS: NovoLOG Insulin Flexpen SUBQ SCH ×4 (06:28→20:28)
[2018-10-14 08:00] VITALS: BP 97/65
[2018-10-14] MEDS: Oseltamivir 75mg cap ORAL SCH ×2 (08:06→17:43)
[2018-10-14] MEDS: Cefepime HCl 1 GM in D5W 55 ML IVPB SCH (08:07)
[2018-10-14] MEDS: Heparin 5000 units/ml inj SUBQ SCH ×2 (08:19→20:39)
--- NOTE | 2018-10-14 10:21 | GI Progress Note ---
Assessment/Plan Problems: (1) History of CVA (cerebrovascular accident) ICD Codes: Z86.73 - Personal history of transient ischemic attack (TIA), and cerebral infarction without residual deficits SNOMED: 490827286 (2) Severe malnutrition ICD Codes: E43 - Unspecified severe protein-calorie malnutrition SNOMED: 53236752 (3) Dysphagia ICD Codes: R13.10 - Dysphagia, unspecified SNOMED: 84989292, 896606370 (4) Anemia ICD Codes: D64.9 - Anemia, unspecified SNOMED: 821425108 (5) Failure to thrive SNOMED: 41907218 (6) Protein-calorie malnutrition, severe ICD Codes: E43 - Unspecified severe protein-calorie malnutrition SNOMED: 517858025 Status: stable Status Narrative Discussed with Dr. Wilson. Assessment/Plan s/p CVA ST evaluation noted >> cont current diet supportive care at this time push PO calorie count OB stool r/o GI bleed monitor H&H, prn transfusions bowel regime >> colace daily ppi fu labs add marinol The patient was seen and examined at bedside and all new and available data was reviewed in the patients chart. I agree with the above findings, impression and plan. (Patient seen earlier today. Signature stamp does not reflect patient encounter time.). - Kp Wilson MD Subjective Gastrointestinal/Abdominal: Reports: poor appetite Objective Last 24 Hour Vital Signs Date Time Temp Pulse Resp B/P (MAP) Pulse Ox O2 Delivery O2 Flow Rate FiO2 10/14/18 08:00 97.4 84 18 97/65 (76) 10/14/18 03:43 99.1 117 20 94/62 (73) 95 10/14/18 03:39 99.1 10/14/18 03:00 102.7 131 20 103/57 (72) 100 10/13/18 21:00 Room Air 10/13/18 20:00 97.2 101 18 90/49 (63) 100 10/13/18 18:35 97.2 102 18 93/57 (69) 98 10/13/18 16:00 98.4 107 18 91/56 (68) 98 10/13/18 13:03 99.4 113 18 92/53 (66) 97 10/13/18 11:20 101.7 130 18 91/52 (65) 97 10/13/18 10:36 102.7 132 18 155/64 (94) 96 Intake and Output 10/13/18 10/14/18 18:59 06:59 Intake Total 1480 ml 1175 ml Output Total 1200 ml 2000 ml Balance 280 ml -825 ml Intake Oral 480 ml 900 ml IV Total 1000 ml 275 ml Output Urine Total 1200 ml 2000 ml Laboratory Tests Test 10/13/18 17:00 Urine Color Pale yellow Urine Appearance Clear Urine pH 6.5 (4.5-8.0) Urine Specific [place] 1.005 (1.005-1.035) Urine Protein 1+ (NEGATIVE) H Urine Glucose (UA) Negative (NEGATIVE) Urine Ketones Negative (NEGATIVE) Urine Blood 4+ (NEGATIVE) H Urine Nitrite Negative (NEGATIVE) Urine Bilirubin Negative (NEGATIVE) Urine Urobilinogen Normal MG/DL (0.0-1.0) Urine Leukocyte Esterase Negative (NEGATIVE) Urine RBC 5-10 /HPF (0 - 0) H Urine WBC 0-2 /HPF (0 - 0) Urine Squamous Epithelial Cells None /LPF (NONE/OCC) Urine Bacteria Few /HPF (NONE) Microbiology Date/Time Source Procedure Growth Status 10/13/18 20:00 Nasopharynx Influenza Types A,B Antigen (JOSE) - Final Complete Height (Feet): 5 Height (Inches): 11.00 Weight (Pounds): 128 General Appearance: WD/WN, no apparent distress, alert, thin Cardiovascular: normal rate Respiratory/Chest: normal breath sounds, no respiratory distress Abdominal Exam: normal bowel sounds, non tender, soft Extremities: non-tender Miguel Guerrero [employer] Oct 14, 2018 10:21
[2018-10-14] MEDS ORDERED: Hydrocortisone 1% Cr 15gm TOPIC PRN (11:00)
[2018-10-14 12:00] VITALS: BP 90/55
--- NOTE | 2018-10-14 12:19 | Infectious Diseases Prog Note ---
Assessment/Plan Assessment/Plan Abx: Levaquin 10/13- Assessment: Sepsis- ?unclear source- r/o bacteremia. endocarditis, acute hIV -CXR: no acute disease -influenza sc neg -u.a neg Fever No leukocytosis FTT CVA MDD/Anxiety Anemia COPD DM2 Plan: -Continue empiric IV vancomycin and Cefepime #2 pending cultures -10/13 SP Levaquin x1 -Continue empiric Tamiflu #2/5 -u/a w/ reflex, Bcx x2, influenza sc -f/u cx -Monitor CBC/CMP, temperatures -aspiration precautions -2d Echo, CXR - May need CT chest/abd/p if ongoing fevers and unclear source Thank you for this consultation. Will continue to follow along with you. Discussed with Ally Petit M.D. Subjective Allergies: Coded Allergies: No Known Allergies (Unverified , 05/06/18) Subjective Tm 102.7 refusing blood work Objective Vital Signs Last 24 Hour Vital Signs Date Time Temp Pulse Resp B/P (MAP) Pulse Ox O2 Delivery O2 Flow Rate FiO2 10/14/18 09:00 Room Air 10/14/18 08:00 97.4 84 18 97/65 (76) 10/14/18 03:43 99.1 117 20 94/62 (73) 95 10/14/18 03:39 99.1 10/14/18 03:00 102.7 131 20 103/57 (72) 100 10/13/18 21:00 Room Air 10/13/18 20:00 97.2 101 18 90/49 (63) 100 10/13/18 18:35 97.2 102 18 93/57 (69) 98 10/13/18 16:00 98.4 107 18 91/56 (68) 98 10/13/18 13:03 99.4 113 18 92/53 (66) 97 Height (Feet): 5 Height (Inches): 11.00 Weight (Pounds): 128 Objective GENERAL: Calm in bed, oriented x2, HEENT: Jaw opens about 30% only, slight pain with movement. CARDIOVASCULAR: No murmur. LUNGS: Distant and clear. ABDOMEN: Bowel sounds positive. Nontender. Nondistended. EXTREMITIES: No cyanosis, clubbing, or edema. NEUROLOGIC: The patient moves all extremities, slightly weak. Microbiology Date/Time Source Procedure Growth Status 10/13/18 20:00 Nasopharynx Influenza Types A,B Antigen (JOSE) - Final Complete Laboratory Tests Test 10/13/18 17:00 Urine Color Pale yellow Urine Appearance Clear Urine pH 6.5 (4.5-8.0) Urine Specific [place] 1.005 (1.005-1.035) Urine Protein 1+ (NEGATIVE) H Urine Glucose (UA) Negative (NEGATIVE) Urine Ketones Negative (NEGATIVE) Urine Blood 4+ (NEGATIVE) H Urine Nitrite Negative (NEGATIVE) Urine Bilirubin Negative (NEGATIVE) Urine Urobilinogen Normal MG/DL (0.0-1.0) Urine Leukocyte Esterase Negative (NEGATIVE) Urine RBC 5-10 /HPF (0 - 0) H Urine WBC 0-2 /HPF (0 - 0) Urine Squamous Epithelial Cells None /LPF (NONE/OCC) Urine Bacteria Few /HPF (NONE) Current Medications Medications (Trade) Dose Ordered Sig/Tresa Route PRN Reason Start Time Stop Time Status Last Admin Dose Admin Acetaminophen (Tylenol) 650 mg Q4H PRN ORAL fever 10/10/18 21:30 11/09/18 21:29 10/14/18 03:09 Acetaminophen (Tylenol) 650 mg Q4H PRN ORAL Mild Pain (Pain Scale 1-3) 10/13/18 15:15 11/12/18 15:14 10/13/18 15:48 Al Hydroxide/Mg Hydroxide (Mylanta II) 30 ml Q6H PRN ORAL dyspepsia 10/10/18 21:30 11/09/18 21:29 Cefepime HCl 1 gm/ Dextrose 55 ml @ 110 mls/hr EVERY 12 HOURS IVPB 10/13/18 21:00 10/20/18 20:59 10/14/18 08:07 Dextrose (Dextrose 50%) 25 ml Q30M PRN IV Hypoglycemia 10/10/18 21:30 11/09/18 21:29 Dextrose (Dextrose 50%) 50 ml Q30M PRN IV Hypoglycemia 10/10/18 21:30 11/09/18 21:29 Heparin Sodium (Porcine) (Heparin 5000 units/ml) 5,000 units EVERY 12 HOURS SUBQ 10/11/18 09:00 11/10/18 08:59 10/14/18 08:19 Hydrocortisone (Hydrocortisone) 1 applic Q6H PRN TOPIC Itching 10/14/18 11:00 11/13/18 10:59 Insulin Aspart (NovoLOG) BEFORE MEALS AND HS SUBQ 10/11/18 06:30 11/10/18 06:29 Lorazepam (Ativan 2mg/ml 1ml) 0.5 mg Q4H PRN IV For Anxiety 10/10/18 21:30 10/17/18 21:29 Morphine Sulfate (Morphine Sulfate) 1 mg EVERY 4 HOURS PRN IVP For Pain 10/10/18 21:30 10/17/18 21:29 10/12/18 17:36 Ondansetron HCl (Zofran) 4 mg Q6H PRN IVP Nausea & Vomiting 10/10/18 21:30 11/09/18 21:29 Oseltamivir Phosphate (Tamiflu) 75 mg TWICE A DAY ORAL 10/13/18 18:00 10/18/18 17:59 10/14/18 08:06 Polyethylene Glycol (Miralax) 17 gm HSPRN PRN ORAL Constipation 10/10/18 21:30 11/09/18 21:29 Risperidone (RisperDAL) 1 mg BID ORAL 10/11/18 09:00 11/10/18 08:59 10/14/18 08:06 Vancomycin HCl (Vanco rx to dose) 1 ea DAILY PRN MISC Per rx protocol 10/13/18 16:30 11/12/18 16:29 Vancomycin HCl 500 mg/Dextrose 110 ml @ 110 mls/hr Q8H IVPB 10/13/18 18:00 10/18/18 17:59 10/14/18 09:30 Zolpidem Tartrate (Ambien) 5 mg HSPRN PRN ORAL Insomnia 10/10/18 21:30 10/17/18 21:29 10/10/18 21:43 Ally Horowitz M.D. Oct 14, 2018 12:19
--- NOTE | 2018-10-14 12:34 | General Progress Note ---
Assessment/Plan Problem List: (1) Failure to thrive SNOMED: 09209203 (2) Anemia ICD Codes: D64.9 - Anemia, unspecified SNOMED: 829630331 (3) Episode of generalized weakness ICD Codes: R53.1 - Weakness SNOMED: 76895300 (4) Diabetes mellitus ICD Codes: E11.9 - Type 2 diabetes mellitus without complications SNOMED: 46244928 (5) History of CVA (cerebrovascular accident) ICD Codes: Z86.73 - Personal history of transient ischemic attack (TIA), and cerebral infarction without residual deficits SNOMED: 618166570 (6) Protein-calorie malnutrition, severe ICD Codes: E43 - Unspecified severe protein-calorie malnutrition SNOMED: 812835549 Status: unchanged Assessment/Plan ot pt diet cbc bmp am dc plan snf Subjective Constitutional: Reports: weakness Allergies: Coded Allergies: No Known Allergies (Unverified , 05/06/18) All Systems: reviewed and negative except above Subjective sleepy calm Objective Last 24 Hour Vital Signs Date Time Temp Pulse Resp B/P (MAP) Pulse Ox O2 Delivery O2 Flow Rate FiO2 10/14/18 09:00 Room Air 10/14/18 08:00 97.4 84 18 97/65 (76) 10/14/18 03:43 99.1 117 20 94/62 (73) 95 10/14/18 03:39 99.1 10/14/18 03:00 102.7 131 20 103/57 (72) 100 10/13/18 21:00 Room Air 10/13/18 20:00 97.2 101 18 90/49 (63) 100 10/13/18 18:35 97.2 102 18 93/57 (69) 98 10/13/18 16:00 98.4 107 18 91/56 (68) 98 10/13/18 13:03 99.4 113 18 92/53 (66) 97 Intake and Output 10/13/18 10/14/18 19:00 07:00 Intake Total 1480 ml 1175 ml Output Total 1200 ml 2000 ml Balance 280 ml -825 ml Intake Oral 480 ml 900 ml IV Total 1000 ml 275 ml Output Urine Total 1200 ml 2000 ml Laboratory Tests 10/13/18 17:00: Urine Color Pale yellow, Urine Appearance Clear, Urine pH 6.5, Urine Specific [place] 1.005, Urine Protein 1+H, Urine Glucose (UA) Negative, Urine Ketones Negative, Urine Blood 4+H, Urine Nitrite Negative, Urine Bilirubin Negative, Urine Urobilinogen Normal, Urine Leukocyte Esterase Negative, Urine RBC 5-10H, Urine WBC 0-2, Urine Squamous Epithelial Cells None, Urine Bacteria Few Height (Feet): 5 Height (Inches): 11.00 Weight (Pounds): 128 General Appearance: lethargic EENT: normal ENT inspection Neck: normal alignment Cardiovascular: normal peripheral pulses, normal rate, regular rhythm Respiratory/Chest: chest wall non-tender, lungs clear, normal breath sounds Abdomen: normal bowel sounds, non tender, soft Extremities: normal inspection Edema: no edema noted Arm (L), no edema noted Arm (R), no edema noted Leg (L), no edema noted Leg (R), no edema noted Pedal (L), no edema noted Pedal (R), no edema noted Generalized Neurologic: responsive, motor weakness Skin: normal pigmentation, warm/dry Rolando Albright DO Oct 14, 2018 12:34
--- NOTE | 2018-10-14 13:10 | Pulmonology Progress Note ---
Assessment/Plan Problems: (1) Dysphagia (2) Protein-calorie malnutrition, severe (3) Anemia (4) Diabetes mellitus (5) History of CVA (cerebrovascular accident) Assessment/Plan improving f/u GI evaluation Marinol was added. dc planning Subjective Constitutional: Reports: no symptoms HEENT: Repors: no symptoms Respiratory: Reports: no symptoms Allergies: Coded Allergies: No Known Allergies (Unverified , 05/06/18) Objective Last 24 Hour Vital Signs Date Time Temp Pulse Resp B/P (MAP) Pulse Ox O2 Delivery O2 Flow Rate FiO2 10/14/18 09:00 Room Air 10/14/18 08:00 97.4 84 18 97/65 (76) 10/14/18 03:43 99.1 117 20 94/62 (73) 95 10/14/18 03:39 99.1 10/14/18 03:00 102.7 131 20 103/57 (72) 100 10/13/18 21:00 Room Air 10/13/18 20:00 97.2 101 18 90/49 (63) 100 10/13/18 18:35 97.2 102 18 93/57 (69) 98 10/13/18 16:00 98.4 107 18 91/56 (68) 98 Intake and Output 10/13/18 10/14/18 19:00 07:00 Intake Total 1480 ml 1175 ml Output Total 1200 ml 2000 ml Balance 280 ml -825 ml Intake Oral 480 ml 900 ml IV Total 1000 ml 275 ml Output Urine Total 1200 ml 2000 ml General Appearance: WD/WN HEENT: normocephalic, atraumatic Respiratory/Chest: chest wall non-tender, lungs clear Cardiovascular: normal peripheral pulses, normal rate Abdomen: normal bowel sounds, soft, non tender Extremities: no cyanosis, no clubbing Skin: no rash Microbiology Date/Time Source Procedure Growth Status 10/13/18 20:00 Nasopharynx Influenza Types A,B Antigen (JOSE) - Final Complete Laboratory Tests 10/13/18 17:00: Urine Color Pale yellow, Urine Appearance Clear, Urine pH 6.5, Urine Specific [place] 1.005, Urine Protein 1+H, Urine Glucose (UA) Negative, Urine Ketones Negative, Urine Blood 4+H, Urine Nitrite Negative, Urine Bilirubin Negative, Urine Urobilinogen Normal, Urine Leukocyte Esterase Negative, Urine RBC 5-10H, Urine WBC 0-2, Urine Squamous Epithelial Cells None, Urine Bacteria Few Current Medications Medications (Trade) Dose Ordered Sig/Tresa Route PRN Reason Start Time Stop Time Status Last Admin Dose Admin Acetaminophen (Tylenol) 650 mg Q4H PRN ORAL fever 10/10/18 21:30 11/09/18 21:29 10/14/18 03:09 Acetaminophen (Tylenol) 650 mg Q4H PRN ORAL Mild Pain (Pain Scale 1-3) 10/13/18 15:15 11/12/18 15:14 10/13/18 15:48 Al Hydroxide/Mg Hydroxide (Mylanta II) 30 ml Q6H PRN ORAL dyspepsia 10/10/18 21:30 11/09/18 21:29 Cefepime HCl 1 gm/ Dextrose 55 ml @ 110 mls/hr EVERY 12 HOURS IVPB 10/13/18 21:00 10/20/18 20:59 10/14/18 08:07 Dextrose (Dextrose 50%) 25 ml Q30M PRN IV Hypoglycemia 10/10/18 21:30 11/09/18 21:29 Dextrose (Dextrose 50%) 50 ml Q30M PRN IV Hypoglycemia 10/10/18 21:30 11/09/18 21:29 Heparin Sodium (Porcine) (Heparin 5000 units/ml) 5,000 units EVERY 12 HOURS SUBQ 10/11/18 09:00 11/10/18 08:59 10/14/18 08:19 Hydrocortisone (Hydrocortisone) 1 applic Q6H PRN TOPIC Itching 10/14/18 11:00 11/13/18 10:59 Insulin Aspart (NovoLOG) BEFORE MEALS AND HS SUBQ 10/11/18 06:30 11/10/18 06:29 Lorazepam (Ativan 2mg/ml 1ml) 0.5 mg Q4H PRN IV For Anxiety 10/10/18 21:30 10/17/18 21:29 Morphine Sulfate (Morphine Sulfate) 1 mg EVERY 4 HOURS PRN IVP For Pain 10/10/18 21:30 10/17/18 21:29 10/12/18 17:36 Ondansetron HCl (Zofran) 4 mg Q6H PRN IVP Nausea & Vomiting 10/10/18 21:30 11/09/18 21:29 Oseltamivir Phosphate (Tamiflu) 75 mg TWICE A DAY ORAL 10/13/18 18:00 10/18/18 17:59 10/14/18 08:06 Polyethylene Glycol (Miralax) 17 gm HSPRN PRN ORAL Constipation 10/10/18 21:30 11/09/18 21:29 Risperidone (RisperDAL) 1 mg BID ORAL 10/11/18 09:00 11/10/18 08:59 10/14/18 08:06 Vancomycin HCl (Vanco rx to dose) 1 ea DAILY PRN MISC Per rx protocol 10/13/18 16:30 11/12/18 16:29 Vancomycin HCl 500 mg/Dextrose 110 ml @ 110 mls/hr Q8H IVPB 10/13/18 18:00 10/18/18 17:59 10/14/18 09:30 Zolpidem Tartrate (Ambien) 5 mg HSPRN PRN ORAL Insomnia 10/10/18 21:30 10/17/18 21:29 10/10/18 21:43 Galilea Macias MD Oct 14, 2018 13:10
--- NOTE | 2018-10-14 13:41 | General Progress Note ---
Assessment/Plan Status: stable Assessment/Plan # Anemia of chronic disease -- rule out gi bleed --> anemia panel has been ordered, hgb goal >7 --> gi service has been consulted --> iron iv if indicated --> eval for hemolysis # Thrombocytosis - likely related to reactive process (and/or underlying infection) --> Continue to monitor for improvement --> Trend CBC as needed --> If continues to be elevated, consider to send for ELIZABETH-2 --> Smear reviewed and no abnormalities noted. *Under manual differential # FTT with Severe malnutrition --> could also be related to anemia --> calory count daily as required --> consider nutrition eval and hydration --> consider use of appetitte stimulants --> oral surgeon eval for lock jaw # Dysphagia --> may need peg --> appreciate gi recs --> oral surgeon eval for lock jaw # Episode of generalized weakness # Hyperproteneimia --> spep and upep have been ordered # s/p CVA Appreciate consultation greatly! Subjective Date patient seen: Oct 14, 2018 Hematologic/Lymphatic: Reports: anemia Allergies: Coded Allergies: No Known Allergies (Unverified , 05/06/18) All Systems: reviewed and negative except above Subjective Pt awake and alert. No acute events. Pt noncompliant with care. Objective Last 24 Hour Vital Signs Date Time Temp Pulse Resp B/P (MAP) Pulse Ox O2 Delivery O2 Flow Rate FiO2 10/14/18 09:00 Room Air 10/14/18 08:00 97.4 84 18 97/65 (76) 10/14/18 03:43 99.1 117 20 94/62 (73) 95 10/14/18 03:39 99.1 10/14/18 03:00 102.7 131 20 103/57 (72) 100 10/13/18 21:00 Room Air 10/13/18 20:00 97.2 101 18 90/49 (63) 100 10/13/18 18:35 97.2 102 18 93/57 (69) 98 10/13/18 16:00 98.4 107 18 91/56 (68) 98 Intake and Output 10/13/18 10/14/18 19:00 07:00 Intake Total 1480 ml 1175 ml Output Total 1200 ml 2000 ml Balance 280 ml -825 ml Intake Oral 480 ml 900 ml IV Total 1000 ml 275 ml Output Urine Total 1200 ml 2000 ml Laboratory Tests 10/13/18 17:00: Urine Color Pale yellow, Urine Appearance Clear, Urine pH 6.5, Urine Specific [place] 1.005, Urine Protein 1+H, Urine Glucose (UA) Negative, Urine Ketones Negative, Urine Blood 4+H, Urine Nitrite Negative, Urine Bilirubin Negative, Urine Urobilinogen Normal, Urine Leukocyte Esterase Negative, Urine RBC 5-10H, Urine WBC 0-2, Urine Squamous Epithelial Cells None, Urine Bacteria Few Height (Feet): 5 Height (Inches): 11.00 Weight (Pounds): 128 Objective General Appearance: well appearing, no apparent distress, alert, thin Head: normocephalic EENT: PERRL/EOMI, normal ENT inspection Neck: supple Respiratory: normal breath sounds, no respiratory distress Cardiovascular: normal rate Gl: normal inspection, non tender, soft, normal bowel sounds, nd Rectal: has been deferred Musculoskeletal: normal inspection, back normal Neurologic: normal inspection, alert, oriented x3, is responsive Skin: normal inspection, normal color, no rash, warm/dry Lymphatic: normal inspection, no adenopathy Jaleel Maravilla MD Oct 14, 2018 13:41
--- NOTE | 2018-10-14 14:16 | Diagnostic Imaging Report ---
Indication: Cough Technique: One view of the chest Comparison: Of 12/29/2017 Findings: Lungs and pleural spaces are clear. The heart size is normal. The aorta is tortuous. No significant interim change Impression: No acute process
[2018-10-14] MEDS ORDERED: Tubing IV Secondary IV ONE (15:07)
[2018-10-14 16:00] VITALS: BP 84/54
[2018-10-14 20:00] VITALS: BP 92/62
--- NOTE | 2018-10-14 23:15 | Consultation ---
DATE OF CONSULTATION: 10/13/2018 NOTE: POOR AUDIO PSYCHOTHERAPY CONSULTATION PROGRESS NOTE TREATING ATTENDING PHYSICIAN: Rolando Albright D.O HISTORY OF PRESENT ILLNESS: The patient is a 37-year-old male patient assisted living center. The patient was brought into the hospital because he was unable to open his jaw, failure to thrive, he also had psychiatric history, schizoaffective disorders. The patient was referred for psychotherapeutic services patient. The patient states that he was feeling very because he could not move his jaw. He is very limited from what he could do to the point that he has been feeling depressed and helpless, has no energy and has been feeling tired. Denies suicidal or homicidal thoughts of ideation. Denies with treatment. PAST MEDICAL HISTORY: CVA, diabetes, unable to open his jaw for the past month. ALLERGIES: No known drug allergies. SUBSTANCE ABUSE HISTORY: There is no indication of alcohol use, illicit substance use, or smoking cigarettes. PSYCHIATRIC HISTORY: The patient has a history of schizophrenia and has been treated with psychotropic medications in the past SOCIAL HISTORY: The patient is a 37-year-old male patient . Financially sustained through [facility]. MENTAL STATUS EXAMINATION: The patient is alert and oriented to person and place. Mood is dysphoric. Affect blunted. Thought process, disorganized. Thought content is linear. There is poor attention and concentration. Poor insight, judgment, and impulse control. DIAGNOSIS: Schizoaffective disorder, bipolar type. PLAN: This clinician assessed this patient and assessed the patient's mental status. Provided the patient with supportive psychotherapy, . Provide the patient with cognitive behavioral interventions. . Encouraging the patient to continue working with positive coping skills and positive . This clinician has reviewed the patient's chart and discussed the treatment with treatment team. Castro Williamson PsyD. DR: Carie JOB#: [id number] CC:
[2018-10-15] VITALS: BP 94/61
[2018-10-15 04:00] VITALS: BP 89/61
[2018-10-15] MEDS: NovoLOG Insulin Flexpen SUBQ SCH ×4 (06:30→20:23)
--- NOTE | 2018-10-15 07:03 | General Progress Note ---
Assessment/Plan Assessment/Plan # Anemia of chronic disease -- rule out gi bleed --> anemia panel has been ordered, hgb goal >7 --> gi service has been consulted --> iron iv as indicated --> eval for hemolysis --> REFUSING LABS # Thrombocytosis - likely related to reactive process (and/or underlying infection) --> Continue to monitor for improvement --> Trend CBC as needed --> If continues to be elevated, consider to send for ELIZABETH-2 --> Smear reviewed and no abnormalities noted. *Under manual differential* --> REFUSING LABS # FTT with Severe malnutrition --> could also be related to anemia --> calory count daily as required --> consider nutrition eval and hydration --> consider use of appetitte stimulants --> oral surgeon eval for lock jaw # Dysphagia --> may need peg --> appreciate gi recs --> oral surgeon eval for lock jaw # Episode of generalized weakness # Hyperproteneimia --> spep and upep have been ordered # s/p CVA Appreciate consultation greatly! Subjective Constitutional: Denies: no symptoms, chills, diaphoresis, fever, malaise, weakness, other HEENT: Denies: no symptoms, eye pain, blurred vision, tearing, double vision, ear pain, ear discharge, nose pain, nose congestion, throat pain, throat swelling, mouth pain, mouth swelling, other Cardiovascular: Denies: no symptoms, chest pain, edema, irregular heart rate, lightheadedness, palpitations, syncope, other Respiratory: Denies: no symptoms, cough, orthopnea, shortness of breath, SOB with excertion, SOB at rest, sputum, stridor, wheezing, other Gastrointestinal/Abdominal: Denies: no symptoms, abdomen distended, abdominal pain, black stools, tarry stools, blood in stool, constipated, diarrhea, difficulty swallowing, nausea, poor appetite, poor fluid intake, rectal bleeding , vomiting, other Genitourinary: Denies: no symptoms, burning, discharge, frequency, flank pain, hematuria, incontinence, pain, urgency, other Neurologic/Psychiatric: Denies: no symptoms, anxiety, depressed, emotional problems, headache, numbness, paresthesia, pre-existing deficit, seizure, tingling, tremors, weakness, other Endocrine: Denies: no symptoms, excessive sweating, flushing, intolerance to cold, intolerance to heat, increased hunger, increased thirst, increased urine, unexplained weight gain, unexplained weight loss, other Allergies: Coded Allergies: No Known Allergies (Unverified , 05/06/18) Subjective Pt awake and alert. No acute events. Pt noncompliant with care. Objective Last 24 Hour Vital Signs Date Time Temp Pulse Resp B/P (MAP) Pulse Ox O2 Delivery O2 Flow Rate FiO2 10/15/18 04:00 97.9 92 18 89/61 (70) 98 10/15/18 00:00 97.4 89 18 94/61 (72) 97 10/14/18 21:00 Room Air 10/14/18 20:00 97.2 97 18 92/62 (72) 96 10/14/18 16:00 97.6 82 18 84/54 (64) 99 10/14/18 12:00 96.7 88 18 90/55 (67) 10/14/18 09:00 Room Air 10/14/18 08:00 97.4 84 18 97/65 (76) Intake and Output 10/14/18 10/15/18 19:00 07:00 Intake Total 1920 ml 1120 ml Output Total 1100 ml 1200 ml Balance 820 ml -80 ml Intake Oral 1920 ml 1120 ml Output Urine Total 1100 ml 1200 ml # Bowel Movements 1 Height (Feet): 5 Height (Inches): 11.00 Weight (Pounds): 128 General Appearance: lethargic EENT: PERRL/EOMI Neck: normal alignment Cardiovascular: normal rate Respiratory/Chest: lungs clear Abdomen: non tender Extremities: non-tender Neurologic: alert Skin: warm/dry Objective General Appearance: well appearing, no apparent distress, alert, thin Head: normocephalic EENT: PERRL/EOMI, normal ENT inspection Neck: supple Respiratory: normal breath sounds, no respiratory distress Cardiovascular: normal rate Gl: normal inspection, non tender, soft, normal bowel sounds, nd Rectal: has been deferred Musculoskeletal: normal inspection, back normal Neurologic: normal inspection, alert, oriented x3, is responsive Skin: normal inspection, normal color, no rash, warm/dry Lymphatic: normal inspection, no adenopathy Jaleel Maravilla MD Oct 15, 2018 07:03
[2018-10-15 08:00] VITALS: BP 139/53
[2018-10-15] MEDS: Oseltamivir 75mg cap ORAL SCH ×2 (08:51→17:11)
[2018-10-15] MEDS: Heparin 5000 units/ml inj SUBQ SCH ×2 (08:53→20:33)
--- NOTE | 2018-10-15 10:44 | GI Progress Note ---
Assessment/Plan Problems: (1) History of CVA (cerebrovascular accident) ICD Codes: Z86.73 - Personal history of transient ischemic attack (TIA), and cerebral infarction without residual deficits SNOMED: 859486074 (2) Severe malnutrition ICD Codes: E43 - Unspecified severe protein-calorie malnutrition SNOMED: 98660509 (3) Dysphagia ICD Codes: R13.10 - Dysphagia, unspecified SNOMED: 77559515, 001562324 (4) Anemia ICD Codes: D64.9 - Anemia, unspecified SNOMED: 910464803 (5) Failure to thrive SNOMED: 18042591 (6) Protein-calorie malnutrition, severe ICD Codes: E43 - Unspecified severe protein-calorie malnutrition SNOMED: 960982599 Status: stable Status Narrative Discussed with Dr. Wilson. Assessment/Plan s/p CVA ST evaluation noted >> cont current diet calorie count >> nutrition needs met okay for DC per GI standpoint supportive care at this time push PO calorie count OB stool r/o GI bleed monitor H&H, prn transfusions bowel regime >> colace daily ppi fu labs add marinol needs outpatient referral for lock jaw The patient was seen and examined at bedside and all new and available data was reviewed in the patients chart. I agree with the above findings, impression and plan. (Patient seen earlier today. Signature stamp does not reflect patient encounter time.). - Kp Wilson MD Subjective Gastrointestinal/Abdominal: Reports: no symptoms Objective Last 24 Hour Vital Signs Date Time Temp Pulse Resp B/P (MAP) Pulse Ox O2 Delivery O2 Flow Rate FiO2 10/15/18 08:00 97.8 60 18 139/53 (81) 98 10/15/18 04:00 97.9 92 18 89/61 (70) 98 10/15/18 00:00 97.4 89 18 94/61 (72) 97 10/14/18 21:00 Room Air 10/14/18 20:00 97.2 97 18 92/62 (72) 96 10/14/18 16:00 97.6 82 18 84/54 (64) 99 10/14/18 12:00 96.7 88 18 90/55 (67) Intake and Output 10/14/18 10/15/18 18:59 06:59 Intake Total 1920 ml 1120 ml Output Total 1100 ml 1200 ml Balance 820 ml -80 ml Intake Oral 1920 ml 1120 ml Output Urine Total 1100 ml 1200 ml # Bowel Movements 1 Height (Feet): 5 Height (Inches): 11.00 Weight (Pounds): 128 General Appearance: WD/WN, no apparent distress, alert, thin Cardiovascular: normal rate Respiratory/Chest: normal breath sounds, no respiratory distress Abdominal Exam: normal bowel sounds, non tender, soft Extremities: non-tender Miguel Guerrero NP Oct 15, 2018 10:44
[2018-10-15] MEDS ORDERED: Varibar Pudding 230ml MC PRN (11:00)
[2018-10-15] MEDS ORDERED: Varibar Honey 250ml MC PRN (11:00)
[2018-10-15] MEDS ORDERED: Varibar Thin Liquid powder 148gm MC PRN (11:00)
[2018-10-15] MEDS ORDERED: Varibar Nectar 240ml MC PRN (11:00)
--- NOTE | 2018-10-15 11:36 | Infectious Diseases Prog Note ---
Assessment/Plan Assessment/Plan Assessment: Sepsis- ?unclear source- r/o bacteremia. endocarditis, acute hIV -CXR: no acute disease -influenza sc neg -u.a neg Fever, improving -2d Echo: no vegetations seen No leukocytosis FTT CVA MDD/Anxiety Anemia COPD DM2 Plan: -Continue empiric PO Linezolid and levaquin abx d#3/-7 as patient refusing IV abx (unclear source at this point and patient non complaint with work up including blood draws, blood culture) -10/14 SP Vanco and Cefepime #2 -10/13 SP Levaquin x1 -Continue empiric Tamiflu #3/ -If recurrent fevers, will obtain CT H/C/A/P w/ to evaluate for source of fever. -f/u cx -Monitor CBC/CMP, temperatures -aspiration precautions Thank you for this consultation. Will continue to follow along with you. Discussed with Ally Petit M.D. Subjective Allergies: Coded Allergies: No Known Allergies (Unverified , 05/06/18) Subjective refused IV abx\ refusing labs and blood cultures draw afebrile >24hrs repeat CXR no acute procss Objective Vital Signs Last 24 Hour Vital Signs Date Time Temp Pulse Resp B/P (MAP) Pulse Ox O2 Delivery O2 Flow Rate FiO2 10/15/18 08:00 97.8 60 18 139/53 (81) 98 10/15/18 04:00 97.9 92 18 89/61 (70) 98 10/15/18 00:00 97.4 89 18 94/61 (72) 97 10/14/18 21:00 Room Air 10/14/18 20:00 97.2 97 18 92/62 (72) 96 10/14/18 16:00 97.6 82 18 84/54 (64) 99 10/14/18 12:00 96.7 88 18 90/55 (67) Height (Feet): 5 Height (Inches): 11.00 Weight (Pounds): 128 Objective GENERAL: Calm in bed, oriented x2, HEENT: Jaw opens about 30% only, slight pain with movement. CARDIOVASCULAR: No murmur. LUNGS: Distant and clear. ABDOMEN: Bowel sounds positive. Nontender. Nondistended. EXTREMITIES: No cyanosis, clubbing, or edema. NEUROLOGIC: The patient moves all extremities, slightly weak. Microbiology Date/Time Source Procedure Growth Status 10/13/18 20:00 Nasopharynx Influenza Types A,B Antigen (JOSE) - Final Complete Current Medications Medications (Trade) Dose Ordered Sig/Tresa Route PRN Reason Start Time Stop Time Status Last Admin Dose Admin Acetaminophen (Tylenol) 650 mg Q4H PRN ORAL fever 10/10/18 21:30 11/09/18 21:29 10/14/18 03:09 Acetaminophen (Tylenol) 650 mg Q4H PRN ORAL Mild Pain (Pain Scale 1-3) 10/13/18 15:15 11/12/18 15:14 10/13/18 15:48 Al Hydroxide/Mg Hydroxide (Mylanta II) 30 ml Q6H PRN ORAL dyspepsia 10/10/18 21:30 11/09/18 21:29 Barium Sulfate (Varibar Honey) 250 ml NOW PRN MC RAD 10/15/18 11:00 10/18/18 18:00 Barium Sulfate (Varibar [place]) 240 ml NOW PRN MC RAD 10/15/18 11:00 10/18/18 18:00 Barium Sulfate (Varibar Pudding) 230 ml NOW PRN MC RAD 10/15/18 11:00 10/18/18 18:00 Barium Sulfate (Varibar Thin Liquid powder) 148 gm NOW PRN MC RAD 10/15/18 11:00 10/18/18 18:00 Dextrose (Dextrose 50%) 25 ml Q30M PRN IV Hypoglycemia 10/10/18 21:30 11/09/18 21:29 Dextrose (Dextrose 50%) 50 ml Q30M PRN IV Hypoglycemia 10/10/18 21:30 11/09/18 21:29 Heparin Sodium (Porcine) (Heparin 5000 units/ml) 5,000 units EVERY 12 HOURS SUBQ 10/11/18 09:00 11/10/18 08:59 10/15/18 08:53 Hydrocortisone (Hydrocortisone) 1 applic Q6H PRN TOPIC Itching 10/14/18 11:00 11/13/18 10:59 Insulin Aspart (NovoLOG) BEFORE MEALS AND HS SUBQ 10/11/18 06:30 11/10/18 06:29 Levofloxacin (Levaquin) 750 mg Q24H ORAL 10/14/18 21:00 10/21/18 20:59 10/14/18 20:33 Linezolid (Zyvox) 600 mg EVERY 12 HOURS ORAL 10/14/18 21:00 10/19/18 20:59 10/15/18 08:51 Lorazepam (Ativan 2mg/ml 1ml) 0.5 mg Q4H PRN IV For Anxiety 10/10/18 21:30 10/17/18 21:29 Morphine Sulfate (Morphine Sulfate) 1 mg EVERY 4 HOURS PRN IVP For Pain 10/10/18 21:30 10/17/18 21:29 10/12/18 17:36 Ondansetron HCl (Zofran) 4 mg Q6H PRN IVP Nausea & Vomiting 10/10/18 21:30 11/09/18 21:29 Oseltamivir Phosphate (Tamiflu) 75 mg TWICE A DAY ORAL 10/13/18 18:00 10/18/18 17:59 10/15/18 08:51 Polyethylene Glycol (Miralax) 17 gm HSPRN PRN ORAL Constipation 10/10/18 21:30 11/09/18 21:29 Risperidone (RisperDAL) 1 mg BID ORAL 10/11/18 09:00 11/10/18 08:59 10/15/18 08:51 Zolpidem Tartrate (Ambien) 5 mg HSPRN PRN ORAL Insomnia 10/10/18 21:30 10/17/18 21:29 10/10/18 21:43 Ally Horowitz M.D. Oct 15, 2018 11:36
--- NOTE | 2018-10-15 11:57 | General Progress Note ---
Assessment/Plan Problem List: (1) Failure to thrive SNOMED: 59188002 (2) Anemia ICD Codes: D64.9 - Anemia, unspecified SNOMED: 200429525 (3) Episode of generalized weakness ICD Codes: R53.1 - Weakness SNOMED: 45247770 (4) Diabetes mellitus ICD Codes: E11.9 - Type 2 diabetes mellitus without complications SNOMED: 36022936 (5) History of CVA (cerebrovascular accident) ICD Codes: Z86.73 - Personal history of transient ischemic attack (TIA), and cerebral infarction without residual deficits SNOMED: 195014268 (6) Protein-calorie malnutrition, severe ICD Codes: E43 - Unspecified severe protein-calorie malnutrition SNOMED: 395512884 Status: unchanged Assessment/Plan ot pt diet cbc bmp am neuro eval dc plan snf Subjective Allergies: Coded Allergies: No Known Allergies (Unverified , 05/06/18) All Systems: reviewed and negative except above Subjective sleepy calm Objective Last 24 Hour Vital Signs Date Time Temp Pulse Resp B/P (MAP) Pulse Ox O2 Delivery O2 Flow Rate FiO2 10/15/18 08:00 97.8 60 18 139/53 (81) 98 10/15/18 04:00 97.9 92 18 89/61 (70) 98 10/15/18 00:00 97.4 89 18 94/61 (72) 97 10/14/18 21:00 Room Air 10/14/18 20:00 97.2 97 18 92/62 (72) 96 10/14/18 16:00 97.6 82 18 84/54 (64) 99 10/14/18 12:00 96.7 88 18 90/55 (67) Intake and Output 10/14/18 10/15/18 18:59 06:59 Intake Total 1920 ml 1120 ml Output Total 1100 ml 1200 ml Balance 820 ml -80 ml Intake Oral 1920 ml 1120 ml Output Urine Total 1100 ml 1200 ml # Bowel Movements 1 Height (Feet): 5 Height (Inches): 11.00 Weight (Pounds): 128 General Appearance: lethargic EENT: normal ENT inspection Neck: normal alignment Cardiovascular: normal peripheral pulses, normal rate, regular rhythm Respiratory/Chest: chest wall non-tender, lungs clear, normal breath sounds Abdomen: normal bowel sounds, non tender, soft Extremities: normal inspection Edema: no edema noted Arm (L), no edema noted Arm (R), no edema noted Leg (L), no edema noted Leg (R), no edema noted Pedal (L), no edema noted Pedal (R), no edema noted Generalized Neurologic: motor weakness Skin: normal pigmentation, warm/dry Rolando Albright DO Oct 15, 2018 11:57
[2018-10-15 12:00] VITALS: BP 94/57
[2018-10-15] MEDS ORDERED: RISPERDAL1 MG ORAL (12:43)
--- NOTE | 2018-10-15 12:44 | Pulmonology Progress Note ---
Assessment/Plan Problems: (1) Sepsis (2) Dysphagia (3) Protein-calorie malnutrition, severe (4) Anemia (5) Diabetes mellitus (6) History of CVA (cerebrovascular accident) Assessment/Plan improving no more fevers on oral abx, Linezolid, pt refusing IV Marinol was added. dc planning Subjective ROS Limited/Unobtainable: No Constitutional: Reports: no symptoms HEENT: Repors: no symptoms Respiratory: Reports: no symptoms Allergies: Coded Allergies: No Known Allergies (Unverified , 05/06/18) Objective Last 24 Hour Vital Signs Date Time Temp Pulse Resp B/P (MAP) Pulse Ox O2 Delivery O2 Flow Rate FiO2 10/15/18 08:00 97.8 60 18 139/53 (81) 98 10/15/18 04:00 97.9 92 18 89/61 (70) 98 10/15/18 00:00 97.4 89 18 94/61 (72) 97 10/14/18 21:00 Room Air 10/14/18 20:00 97.2 97 18 92/62 (72) 96 10/14/18 16:00 97.6 82 18 84/54 (64) 99 Intake and Output 10/14/18 10/15/18 18:59 06:59 Intake Total 1920 ml 1120 ml Output Total 1100 ml 1200 ml Balance 820 ml -80 ml Intake Oral 1920 ml 1120 ml Output Urine Total 1100 ml 1200 ml # Bowel Movements 1 General Appearance: cachetic HEENT: normocephalic, atraumatic Respiratory/Chest: chest wall non-tender, normal breath sounds Cardiovascular: normal peripheral pulses, regular rhythm Microbiology Date/Time Source Procedure Growth Status 10/13/18 20:00 Nasopharynx Influenza Types A,B Antigen (JOSE) - Final Complete Current Medications Medications (Trade) Dose Ordered Sig/Tresa Route PRN Reason Start Time Stop Time Status Last Admin Dose Admin Acetaminophen (Tylenol) 650 mg Q4H PRN ORAL fever 10/10/18 21:30 11/09/18 21:29 10/14/18 03:09 Acetaminophen (Tylenol) 650 mg Q4H PRN ORAL Mild Pain (Pain Scale 1-3) 10/13/18 15:15 11/12/18 15:14 10/13/18 15:48 Al Hydroxide/Mg Hydroxide (Mylanta II) 30 ml Q6H PRN ORAL dyspepsia 10/10/18 21:30 11/09/18 21:29 Barium Sulfate (Varibar Honey) 250 ml NOW PRN MC RAD 10/15/18 11:00 10/18/18 18:00 Barium Sulfate (Varibar [place]) 240 ml NOW PRN MC RAD 10/15/18 11:00 10/18/18 18:00 Barium Sulfate (Varibar Pudding) 230 ml NOW PRN MC RAD 10/15/18 11:00 10/18/18 18:00 Barium Sulfate (Varibar Thin Liquid powder) 148 gm NOW PRN MC RAD 10/15/18 11:00 10/18/18 18:00 Dextrose (Dextrose 50%) 25 ml Q30M PRN IV Hypoglycemia 10/10/18 21:30 11/09/18 21:29 Dextrose (Dextrose 50%) 50 ml Q30M PRN IV Hypoglycemia 10/10/18 21:30 11/09/18 21:29 Heparin Sodium (Porcine) (Heparin 5000 units/ml) 5,000 units EVERY 12 HOURS SUBQ 10/11/18 09:00 11/10/18 08:59 10/15/18 08:53 Hydrocortisone (Hydrocortisone) 1 applic Q6H PRN TOPIC Itching 10/14/18 11:00 11/13/18 10:59 Insulin Aspart (NovoLOG) BEFORE MEALS AND HS SUBQ 10/11/18 06:30 11/10/18 06:29 Levofloxacin (Levaquin) 750 mg Q24H ORAL 10/14/18 21:00 10/21/18 20:59 10/14/18 20:33 Linezolid (Zyvox) 600 mg EVERY 12 HOURS ORAL 10/14/18 21:00 10/19/18 20:59 10/15/18 08:51 Lorazepam (Ativan 2mg/ml 1ml) 0.5 mg Q4H PRN IV For Anxiety 10/10/18 21:30 10/17/18 21:29 Morphine Sulfate (Morphine Sulfate) 1 mg EVERY 4 HOURS PRN IVP For Pain 10/10/18 21:30 10/17/18 21:29 10/12/18 17:36 Ondansetron HCl (Zofran) 4 mg Q6H PRN IVP Nausea & Vomiting 10/10/18 21:30 1/1/19 21:29 Oseltamivir Phosphate (Tamiflu) 75 mg TWICE A DAY ORAL 10/13/18 18:00 10/18/18 17:59 10/15/18 08:51 Polyethylene Glycol (Miralax) 17 gm HSPRN PRN ORAL Constipation 10/10/18 21:30 11/09/18 21:29 Risperidone (RisperDAL) 1 mg BID ORAL 10/11/18 09:00 11/10/18 08:59 10/15/18 08:51 Zolpidem Tartrate (Ambien) 5 mg HSPRN PRN ORAL Insomnia 10/10/18 21:30 10/17/18 21:29 10/10/18 21:43 Galilea Macias MD Oct 15, 2018 12:44
[2018-10-15 16:00] VITALS: BP 101/61
[2018-10-15 20:00] VITALS: BP 97/64
[2018-10-16] VITALS: BP 100/62
[2018-10-16 04:00] VITALS: BP 93/50
[2018-10-16] MEDS: NovoLOG Insulin Flexpen SUBQ SCH ×4 (05:37→20:53)
--- NOTE | 2018-10-16 07:42 | General Progress Note ---
Assessment/Plan Problem List: (1) Failure to thrive SNOMED: 04023216 (2) Anemia ICD Codes: D64.9 - Anemia, unspecified SNOMED: 002573322 (3) Dysphagia ICD Codes: R13.10 - Dysphagia, unspecified SNOMED: 43435540, 407873146 (4) Severe malnutrition ICD Codes: E43 - Unspecified severe protein-calorie malnutrition SNOMED: 29862284 (5) Diabetes mellitus ICD Codes: E11.9 - Type 2 diabetes mellitus without complications SNOMED: 01352488 (6) History of CVA (cerebrovascular accident) ICD Codes: Z86.73 - Personal history of transient ischemic attack (TIA), and cerebral infarction without residual deficits SNOMED: 174124206 (7) Protein-calorie malnutrition, severe ICD Codes: E43 - Unspecified severe protein-calorie malnutrition SNOMED: 999670991 Assessment/Plan s/p CVA ST evaluation noted >> cont current diet calorie count >> nutrition needs met okay for DC per GI standpoint supportive care at this time push PO calorie count OB stool r/o GI bleed monitor H&H, prn transfusions bowel regime >> colace daily ppi fu labs marinol needs outpatient referral for lock jaw Subjective ROS Limited/Unobtainable: Yes Allergies: Coded Allergies: No Known Allergies (Unverified , 05/06/18) Subjective refused blood draw this morning Objective Last 24 Hour Vital Signs Date Time Temp Pulse Resp B/P (MAP) Pulse Ox O2 Delivery O2 Flow Rate FiO2 10/16/18 04:00 98.2 81 20 93/50 (64) 100 10/16/18 00:00 97.1 83 19 100/62 (75) 100 10/15/18 21:00 Room Air 10/15/18 20:00 97.4 93 18 97/64 (75) 100 10/15/18 16:00 98.0 81 19 101/61 (74) 98 10/15/18 12:00 96.8 82 18 94/57 (69) 98 10/15/18 09:00 Room Air 10/15/18 08:00 97.8 60 18 139/53 (81) 98 Intake and Output 10/15/18 10/16/18 19:00 07:00 Intake Total 650 ml 240 ml Output Total 1800 ml Balance 650 ml -1560 ml Intake Oral 240 ml Other 650 ml Output Urine Total 1800 ml # Voids 5 Height (Feet): 5 Height (Inches): 11.00 Weight (Pounds): 128 General Appearance: alert EENT: normal ENT inspection Neck: supple Cardiovascular: normal rate Respiratory/Chest: decreased breath sounds Abdomen: normal bowel sounds, non tender, soft Extremities: non-tender Kp Wilson MD Oct 16, 2018 07:42
[2018-10-16 08:00] VITALS: BP 98/58
--- NOTE | 2018-10-16 08:36 | General Progress Note ---
Assessment/Plan Problem List: (1) Failure to thrive SNOMED: 14984317 (2) Anemia ICD Codes: D64.9 - Anemia, unspecified SNOMED: 705605974 (3) Episode of generalized weakness ICD Codes: R53.1 - Weakness SNOMED: 62285670 (4) Diabetes mellitus ICD Codes: E11.9 - Type 2 diabetes mellitus without complications SNOMED: 81758230 (5) History of CVA (cerebrovascular accident) ICD Codes: Z86.73 - Personal history of transient ischemic attack (TIA), and cerebral infarction without residual deficits SNOMED: 198642112 (6) Protein-calorie malnutrition, severe ICD Codes: E43 - Unspecified severe protein-calorie malnutrition SNOMED: 535707079 Status: stable, progressing Assessment/Plan ot pt diet cbc bmp am neuro eval dc plan snf Subjective Constitutional: Reports: weakness Allergies: Coded Allergies: No Known Allergies (Unverified , 05/06/18) All Systems: reviewed and negative except above Subjective sleepy calm Objective Last 24 Hour Vital Signs Date Time Temp Pulse Resp B/P (MAP) Pulse Ox O2 Delivery O2 Flow Rate FiO2 10/16/18 08:00 97.9 100 20 98/58 (71) 100 10/16/18 04:00 98.2 81 20 93/50 (64) 100 10/16/18 00:00 97.1 83 19 100/62 (75) 100 10/15/18 21:00 Room Air 10/15/18 20:00 97.4 93 18 97/64 (75) 100 10/15/18 16:00 98.0 81 19 101/61 (74) 98 10/15/18 12:00 96.8 82 18 94/57 (69) 98 10/15/18 09:00 Room Air Intake and Output 10/15/18 10/16/18 19:00 07:00 Intake Total 650 ml 240 ml Output Total 1800 ml Balance 650 ml -1560 ml Intake Oral 240 ml Other 650 ml Output Urine Total 1800 ml # Voids 5 Height (Feet): 5 Height (Inches): 11.00 Weight (Pounds): 128 General Appearance: lethargic EENT: normal ENT inspection Neck: normal alignment Cardiovascular: normal peripheral pulses, normal rate, regular rhythm Respiratory/Chest: chest wall non-tender, lungs clear, normal breath sounds Abdomen: normal bowel sounds, non tender, soft Extremities: normal inspection Edema: no edema noted Arm (L), no edema noted Arm (R), no edema noted Leg (L), no edema noted Leg (R), no edema noted Pedal (L), no edema noted Pedal (R), no edema noted Generalized Neurologic: motor weakness Skin: normal pigmentation, warm/dry Rolando Albright DO Oct 16, 2018 08:36
--- NOTE | 2018-10-16 08:38 | Pulmonology Progress Note ---
Assessment/Plan Problems: (1) Sepsis (2) Dysphagia (3) Protein-calorie malnutrition, severe (4) Anemia (5) Diabetes mellitus (6) History of CVA (cerebrovascular accident) Assessment/Plan improving no more fevers on oral abx, Linezolid, pt refusing IV Marinol was added. dc planning Subjective ROS Limited/Unobtainable: No Constitutional: Reports: no symptoms HEENT: Repors: no symptoms Allergies: Coded Allergies: No Known Allergies (Unverified , 05/06/18) Objective Last 24 Hour Vital Signs Date Time Temp Pulse Resp B/P (MAP) Pulse Ox O2 Delivery O2 Flow Rate FiO2 10/16/18 08:00 97.9 100 20 98/58 (71) 100 10/16/18 04:00 98.2 81 20 93/50 (64) 100 10/16/18 00:00 97.1 83 19 100/62 (75) 100 10/15/18 21:00 Room Air 10/15/18 20:00 97.4 93 18 97/64 (75) 100 10/15/18 16:00 98.0 81 19 101/61 (74) 98 10/15/18 12:00 96.8 82 18 94/57 (69) 98 10/15/18 09:00 Room Air Intake and Output 10/15/18 10/16/18 19:00 07:00 Intake Total 650 ml 240 ml Output Total 1800 ml Balance 650 ml -1560 ml Intake Oral 240 ml Other 650 ml Output Urine Total 1800 ml # Voids 5 Objective General Appearance: WD/WN HEENT: normocephalic Respiratory/Chest: chest wall non-tender, lungs clear, normal breath sounds Cardiovascular: normal peripheral pulses, normal rate Abdomen: normal bowel sounds, soft, non tender Genitourinary: normal external genitalia Extremities: no clubbing Skin: no rash Microbiology Date/Time Source Procedure Growth Status 10/13/18 20:00 Nasopharynx Influenza Types A,B Antigen (JOSE) - Final Complete Current Medications Medications (Trade) Dose Ordered Sig/Tresa Route PRN Reason Start Time Stop Time Status Last Admin Dose Admin Acetaminophen (Tylenol) 650 mg Q4H PRN ORAL fever 10/10/18 21:30 11/09/18 21:29 10/14/18 03:09 Acetaminophen (Tylenol) 650 mg Q4H PRN ORAL Mild Pain (Pain Scale 1-3) 10/13/18 15:15 11/12/18 15:14 10/13/18 15:48 Al Hydroxide/Mg Hydroxide (Mylanta II) 30 ml Q6H PRN ORAL dyspepsia 10/10/18 21:30 11/09/18 21:29 Barium Sulfate (Varibar Honey) 250 ml NOW PRN MC RAD 10/15/18 11:00 10/18/18 18:00 Barium Sulfate (Varibar [place]) 240 ml NOW PRN MC RAD 10/15/18 11:00 10/18/18 18:00 Barium Sulfate (Varibar Pudding) 230 ml NOW PRN RAD 10/15/18 11:00 10/18/18 18:00 Barium Sulfate (Varibar Thin Liquid powder) 148 gm NOW PRN RAD 10/15/18 11:00 10/18/18 18:00 Dextrose (Dextrose 50%) 25 ml Q30M PRN IV Hypoglycemia 10/10/18 21:30 11/09/18 21:29 Dextrose (Dextrose 50%) 50 ml Q30M PRN IV Hypoglycemia 10/10/18 21:30 11/09/18 21:29 Heparin Sodium (Porcine) (Heparin 5000 units/ml) 5,000 units EVERY 12 HOURS SUBQ 10/11/18 09:00 11/10/18 08:59 10/15/18 20:33 Hydrocortisone (Hydrocortisone) 1 applic Q6H PRN TOPIC Itching 10/14/18 11:00 11/13/18 10:59 Insulin Aspart (NovoLOG) BEFORE MEALS AND HS SUBQ 10/11/18 06:30 11/10/18 06:29 Levofloxacin (Levaquin) 750 mg Q24H ORAL 10/14/18 21:00 10/21/18 20:59 10/15/18 20:31 Linezolid (Zyvox) 600 mg EVERY 12 HOURS ORAL 10/14/18 21:00 10/19/18 20:59 10/15/18 20:31 Lorazepam (Ativan 2mg/ml 1ml) 0.5 mg Q4H PRN IV For Anxiety 10/10/18 21:30 10/17/18 21:29 Morphine Sulfate (Morphine Sulfate) 1 mg EVERY 4 HOURS PRN IVP For Pain 10/10/18 21:30 12/9/18 21:29 10/12/18 17:36 Ondansetron HCl (Zofran) 4 mg Q6H PRN IVP Nausea & Vomiting 10/10/18 21:30 11/09/18 21:29 Oseltamivir Phosphate (Tamiflu) 75 mg TWICE A DAY ORAL 10/13/18 18:00 10/18/18 17:59 10/15/18 17:11 Polyethylene Glycol (Miralax) 17 gm HSPRN PRN ORAL Constipation 10/10/18 21:30 11/09/18 21:29 Risperidone (RisperDAL) 1 mg BID ORAL 10/11/18 09:00 11/10/18 08:59 10/15/18 17:11 Zolpidem Tartrate (Ambien) 5 mg HSPRN PRN ORAL Insomnia 10/10/18 21:30 10/17/18 21:29 10/10/18 21:43 Galilea Macias MD Oct 16, 2018 08:38
[2018-10-16] MEDS: Oseltamivir 75mg cap ORAL SCH ×4 (09:00→17:02)
--- NOTE | 2018-10-16 09:10 | Infectious Diseases Prog Note ---
Assessment/Plan Assessment/Plan Assessment: Sepsis- ?unclear source- r/o bacteremia. endocarditis, acute hIV -CXR: no acute disease -influenza sc neg -u.a neg Fever, Sp -2d Echo: no vegetations seen No leukocytosis FTT CVA MDD/Anxiety Anemia COPD DM2 Plan: -Continue empiric PO Linezolid and levaquin abx d# 4 /5-7 as patient refusing IV abx (unclear source at this point and patient non complaint with work up including blood draws, blood culture) -10/14 SP Vanco and Cefepime #2 -10/13 SP Levaquin x1 -Continue empiric Tamiflu # 4 /5 -If recurrent fevers, will obtain CT H/C/A/P w/ to evaluate for source of fever. -f/u cx -Monitor CBC/CMP, temperatures -aspiration precautions Subjective Allergies: Coded Allergies: No Known Allergies (Unverified , 05/06/18) Subjective comfortable Objective Vital Signs Last 24 Hour Vital Signs Date Time Temp Pulse Resp B/P (MAP) Pulse Ox O2 Delivery O2 Flow Rate FiO2 10/16/18 08:00 97.9 100 20 98/58 (71) 100 10/16/18 04:00 98.2 81 20 93/50 (64) 100 10/16/18 00:00 97.1 83 19 100/62 (75) 100 10/15/18 21:00 Room Air 10/15/18 20:00 97.4 93 18 97/64 (75) 100 10/15/18 16:00 98.0 81 19 101/61 (74) 98 10/15/18 12:00 96.8 82 18 94/57 (69) 98 Height (Feet): 5 Height (Inches): 11.00 Weight (Pounds): 128 HEENT: anicteric Respiratory/Chest: normal breath sounds Cardiovascular: no gallop/murmur Abdomen: non distended Microbiology Date/Time Source Procedure Growth Status 10/13/18 20:00 Nasopharynx Influenza Types A,B Antigen (JOSE) - Final Complete Current Medications Medications (Trade) Dose Ordered Sig/Tresa Route PRN Reason Start Time Stop Time Status Last Admin Dose Admin Acetaminophen (Tylenol) 650 mg Q4H PRN ORAL fever 10/10/18 21:30 11/09/18 21:29 10/14/18 03:09 Acetaminophen (Tylenol) 650 mg Q4H PRN ORAL Mild Pain (Pain Scale 1-3) 10/13/18 15:15 11/12/18 15:14 10/13/18 15:48 Al Hydroxide/Mg Hydroxide (Mylanta II) 30 ml Q6H PRN ORAL dyspepsia 10/10/18 21:30 11/09/18 21:29 Barium Sulfate (Varibar [place]) 250 ml NOW PRN MC RAD 10/15/18 11:00 10/18/18 18:00 Barium Sulfate (Varibar [place]) 240 ml NOW PRN MC RAD 10/15/18 11:00 10/18/18 18:00 Barium Sulfate (Varibar Pud[place]) 230 ml NOW PRN MC RAD 10/15/18 11:00 10/18/18 18:00 Barium Sulfate (Varibar Thin Liquid powder) 148 gm NOW PRN RAD 10/15/18 11:00 10/18/18 18:00 Dextrose (Dextrose 50%) 25 ml Q30M PRN IV Hypoglycemia 10/10/18 21:30 11/09/18 21:29 Dextrose (Dextrose 50%) 50 ml Q30M PRN IV Hypoglycemia 10/10/18 21:30 11/09/18 21:29 Heparin Sodium (Porcine) (Heparin 5000 units/ml) 5,000 units EVERY 12 HOURS SUBQ 10/11/18 09:00 11/10/18 08:59 10/15/18 20:33 Hydrocortisone (Hydrocortisone) 1 applic Q6H PRN TOPIC Itching 10/14/18 11:00 11/13/18 10:59 Insulin Aspart (NovoLOG) BEFORE MEALS AND HS SUBQ 10/11/18 06:30 11/10/18 06:29 Levofloxacin (Levaquin) 750 mg Q24H ORAL 10/14/18 21:00 10/21/18 20:59 10/15/18 20:31 Linezolid (Zyvox) 600 mg EVERY 12 HOURS ORAL 10/14/18 21:00 10/19/18 20:59 10/15/18 20:31 Lorazepam (Ativan 2mg/ml 1ml) 0.5 mg Q4H PRN IV For Anxiety 10/10/18 21:30 10/17/18 21:29 Morphine Sulfate (Morphine Sulfate) 1 mg EVERY 4 HOURS PRN IVP For Pain 10/10/18 21:30 10/17/18 21:29 10/12/18 17:36 Ondansetron HCl (Zofran) 4 mg Q6H PRN IVP Nausea & Vomiting 10/10/18 21:30 11/09/18 21:29 Oseltamivir Phosphate (Tamiflu) 75 mg TWICE A DAY ORAL 10/13/18 18:00 10/18/18 17:59 10/15/18 17:11 Polyethylene Glycol (Miralax) 17 gm HSPRN PRN ORAL Constipation 10/10/18 21:30 11/09/18 21:29 Risperidone (RisperDAL) 1 mg BID ORAL 10/11/18 09:00 11/10/18 08:59 10/15/18 17:11 Zolpidem Tartrate (Ambien) 5 mg HSPRN PRN ORAL Insomnia 10/10/18 21:30 10/17/18 21:29 10/10/18 21:43 Mikey Chandra MD Oct 16, 2018 09:10
[2018-10-16] MEDS: Heparin 5000 units/ml inj SUBQ SCH ×2 (10:25→21:26)
[2018-10-16 12:00] VITALS: BP 90/56
[2018-10-16 16:00] VITALS: BP 91/57
[2018-10-16 20:00] VITALS: BP 85/53
[2018-10-17] VITALS (7 sets, daily range): BP systolic 77–105; BP diastolic 49–63
[2018-10-17] MEDS: NovoLOG Insulin Flexpen SUBQ SCH ×4 (06:22→21:00)
--- NOTE | 2018-10-17 07:15 | General Progress Note ---
Assessment/Plan Problem List: (1) Failure to thrive SNOMED: 38307258 (2) Anemia ICD Codes: D64.9 - Anemia, unspecified SNOMED: 545933342 (3) Dysphagia ICD Codes: R13.10 - Dysphagia, unspecified SNOMED: 18809685, 330689904 (4) Severe malnutrition ICD Codes: E43 - Unspecified severe protein-calorie malnutrition SNOMED: 26617744 (5) Diabetes mellitus ICD Codes: E11.9 - Type 2 diabetes mellitus without complications SNOMED: 04665030 (6) History of CVA (cerebrovascular accident) ICD Codes: Z86.73 - Personal history of transient ischemic attack (TIA), and cerebral infarction without residual deficits SNOMED: 653654307 (7) Protein-calorie malnutrition, severe ICD Codes: E43 - Unspecified severe protein-calorie malnutrition SNOMED: 848486216 Assessment/Plan s/p CVA ST evaluation noted >> cont current diet calorie count >> nutrition needs met okay for DC per GI standpoint supportive care at this time push PO calorie count OB stool r/o GI bleed monitor H&H, prn transfusions bowel regime >> colace daily ppi fu labs marinol needs outpatient referral for lock jaw Subjective ROS Limited/Unobtainable: Yes Allergies: Coded Allergies: No Known Allergies (Unverified , 05/06/18) Objective Last 24 Hour Vital Signs Date Time Temp Pulse Resp B/P (MAP) Pulse Ox O2 Delivery O2 Flow Rate FiO2 10/17/18 04:00 96.8 78 18 98/61 (73) 99 10/17/18 00:00 96.6 79 18 94/59 (71) 99 10/16/18 20:23 Room Air 10/16/18 20:00 96.6 85 18 85/53 (64) 97 10/16/18 16:00 97.8 92 18 91/57 (68) 100 10/16/18 12:00 98.0 83 18 90/56 (67) 97 10/16/18 09:00 Room Air 10/16/18 08:00 97.9 100 20 98/58 (71) 100 Intake and Output 10/16/18 10/17/18 19:00 07:00 Intake Total 1370 ml Output Total 1300 ml Balance 70 ml Intake Oral 1370 ml Output Urine Total 1300 ml Height (Feet): 5 Height (Inches): 11.00 Weight (Pounds): 128 General Appearance: no apparent distress EENT: normal ENT inspection Neck: supple Cardiovascular: normal rate Respiratory/Chest: decreased breath sounds Abdomen: normal bowel sounds, non tender, soft Extremities: non-tender Kp Wilson MD Oct 17, 2018 07:15
[2018-10-17] MEDS: Oseltamivir 75mg cap ORAL SCH ×2 (08:20→18:02)
[2018-10-17] MEDS: Heparin 5000 units/ml inj SUBQ SCH ×2 (08:23→21:37)
--- NOTE | 2018-10-17 08:42 | General Progress Note ---
Assessment/Plan Problem List: (1) Failure to thrive SNOMED: 55960686 (2) Anemia ICD Codes: D64.9 - Anemia, unspecified SNOMED: 070623082 (3) Episode of generalized weakness ICD Codes: R53.1 - Weakness SNOMED: 97590075 (4) Diabetes mellitus ICD Codes: E11.9 - Type 2 diabetes mellitus without complications SNOMED: 88243845 (5) History of CVA (cerebrovascular accident) ICD Codes: Z86.73 - Personal history of transient ischemic attack (TIA), and cerebral infarction without residual deficits SNOMED: 448019183 (6) Protein-calorie malnutrition, severe ICD Codes: E43 - Unspecified severe protein-calorie malnutrition SNOMED: 027541411 Status: stable, progressing Assessment/Plan ot pt diet cbc bmp am neuro eval dc plan snf Subjective Constitutional: Reports: weakness Allergies: Coded Allergies: No Known Allergies (Unverified , 05/06/18) All Systems: reviewed and negative except above Subjective sleepy calm Objective Last 24 Hour Vital Signs Date Time Temp Pulse Resp B/P (MAP) Pulse Ox O2 Delivery O2 Flow Rate FiO2 10/17/18 04:00 96.8 78 18 98/61 (73) 99 10/17/18 00:00 96.6 79 18 94/59 (71) 99 10/16/18 20:23 Room Air 10/16/18 20:00 96.6 85 18 85/53 (64) 97 10/16/18 16:00 97.8 92 18 91/57 (68) 100 10/16/18 12:00 98.0 83 18 90/56 (67) 97 10/16/18 09:00 Room Air Intake and Output 10/16/18 10/17/18 19:00 07:00 Intake Total 1370 ml 600 ml Output Total 1300 ml 1500 ml Balance 70 ml -900 ml Intake Oral 1370 ml 600 ml Output Urine Total 1300 ml 1500 ml Height (Feet): 5 Height (Inches): 11.00 Weight (Pounds): 128 General Appearance: lethargic EENT: normal ENT inspection Neck: normal alignment Cardiovascular: normal peripheral pulses, normal rate, regular rhythm Respiratory/Chest: chest wall non-tender, lungs clear, normal breath sounds Abdomen: normal bowel sounds, non tender, soft Extremities: normal inspection Edema: no edema noted Arm (L), no edema noted Arm (R), no edema noted Leg (L), no edema noted Leg (R), no edema noted Pedal (L), no edema noted Pedal (R), no edema noted Generalized Neurologic: motor weakness Skin: normal pigmentation, warm/dry Rolando Albright DO Oct 17, 2018 08:42
[2018-10-18] VITALS: BP 90/60
[2018-10-18] MEDS: NovoLOG Insulin Flexpen SUBQ SCH ×4 (06:30→21:00)
--- NOTE | 2018-10-18 07:01 | General Progress Note ---
Assessment/Plan Assessment/Plan # Anemia of chronic disease -- rule out gi bleed, unknown trend of h/h given refusing blood draws --> anemia panel has been ordered, hgb goal >7 --> gi service has been consulted --> iron iv as indicated --> eval for hemolysis --> REFUSING LABS AGAIN # Thrombocytosis - likely related to reactive process (and/or underlying infection) --> Continue to monitor for improvement --> Trend CBC as needed --> If continues to be elevated, consider to send for ELIZABETH-2 --> Smear reviewed and no abnormalities noted. *Under manual differential* --> REFUSING LABS # FTT with Severe malnutrition --> could also be related to anemia --> calory count daily as required --> consider nutrition eval and hydration --> consider use of appetitte stimulants --> oral surgeon eval for lock jaw # Dysphagia --> may need peg --> appreciate gi recs --> oral surgeon eval for lock jaw # Episode of generalized weakness # Hyperproteneimia --> spep and upep have been ordered # s/p CVA # Resp symptoms --> has been refusing tamiflu Appreciate consultation greatly! Subjective Constitutional: Denies: no symptoms, chills, diaphoresis, fever, malaise, weakness, other Cardiovascular: Denies: no symptoms, chest pain, edema, irregular heart rate, lightheadedness, palpitations, syncope, other Respiratory: Denies: no symptoms, cough, orthopnea, shortness of breath, SOB with excertion, SOB at rest, sputum, stridor, wheezing, other Gastrointestinal/Abdominal: Denies: no symptoms, abdomen distended, abdominal pain, black stools, tarry stools, blood in stool, constipated, diarrhea, difficulty swallowing, nausea, poor appetite, poor fluid intake, rectal bleeding , vomiting, other Genitourinary: Denies: no symptoms, burning, discharge, frequency, flank pain, hematuria, incontinence, pain, urgency, other Neurologic/Psychiatric: Denies: no symptoms, anxiety, depressed, emotional problems, headache, numbness, paresthesia, pre-existing deficit, seizure, tingling, tremors, weakness, other Endocrine: Denies: no symptoms, excessive sweating, flushing, intolerance to cold, intolerance to heat, increased hunger, increased thirst, increased urine, unexplained weight gain, unexplained weight loss, other Hematologic/Lymphatic: Denies: no symptoms, anemia, easy bleeding, easy bruising, other Allergies: Coded Allergies: No Known Allergies (Unverified , 05/06/18) Subjective Pt awake and alert. No acute events. Pt noncompliant with care. Objective Last 24 Hour Vital Signs Date Time Temp Pulse Resp B/P (MAP) Pulse Ox O2 Delivery O2 Flow Rate FiO2 10/18/18 00:00 97.9 80 18 90/60 (70) 99 10/17/18 21:00 Room Air 10/17/18 20:00 97.8 82 17 95/56 (69) 98 10/17/18 16:34 97.6 83 19 105/63 (77) 99 10/17/18 15:21 97.5 77 19 85/50 (62) 99 10/17/18 12:00 97.3 81 20 77/52 (60) 98 10/17/18 09:00 Room Air 10/17/18 08:00 97.3 69 21 93/49 (64) 99 Intake and Output 10/17/18 10/18/18 19:00 07:00 Intake Total 200 ml 660 ml Output Total 200 ml 1120 ml Balance 0 ml -460 ml Intake Oral 200 ml 660 ml Output Urine Total 200 ml 1120 ml # Voids 1 Height (Feet): 5 Height (Inches): 11.00 Weight (Pounds): 128 General Appearance: lethargic Objective General Appearance: well appearing, no apparent distress, alert, thin Head: normocephalic EENT: PERRL/EOMI, normal ENT inspection Neck: supple Respiratory: normal breath sounds, no respiratory distress Cardiovascular: normal rate Gl: normal inspection, non tender, soft, normal bowel sounds, nd Rectal: has been deferred Musculoskeletal: normal inspection, back normal Neurologic: normal inspection, alert, oriented x3, is responsive Skin: normal inspection, normal color, no rash, warm/dry Lymphatic: normal inspection, no adenopathy Jaleel Maravilla MD Oct 18, 2018 07:01
[2018-10-18 08:00] VITALS: BP 116/65
[2018-10-18] MEDS: Heparin 5000 units/ml inj SUBQ SCH ×2 (08:56→21:38)
--- NOTE | 2018-10-18 11:07 | Cardiology Report ---
APPROVED REPORT EXAM: Two-dimensional and M-mode echocardiogram with Doppler and color Doppler. INDICATION Vegetation M-Mode DIMENSIONS IVSd1.1 (0.7-1.1cm)Left Atrium (MM)3.0 (1.6-4.0cm) LVDd4.2 (3.5-5.6cm)Aortic Root3.3 (2.0-3.7cm) PWd1.2 (0.7-1.1cm)Aortic Cusp Exc.2.2 (1.5-2.0cm) LVDs2.7 (2.5-4.0cm) PWs1.3 cm Normal left ventricular chamber size, systolic function and wall motion. Left ventricular ejection fraction estimated to be 60 %. No evidence of left ventricular hypertrophy. No evidence of pericardial effusion. All other cardiac chamber sizes are within normal limits. Mild focal aortic valve sclerosis with adequate cusp excursion. Mildly thickened mitral valve leaflets with normal excursion. Mitral annulus and aortic root calcification. Pulmonic valve not well visualized. Normal tricuspid valve structure. IVC at normal size with physiologic collapse. A color flow and spectral Doppler study was performed and revealed: Trace mitral regurgitation. Mitral inflow indicates normal left ventricular diastolic function. Trace to mild tricuspid regurgitation. Tricuspid systolic velocities suggests peak right ventricular systolic pressure of 25 mmHg.
--- NOTE | 2018-10-18 11:34 | Infectious Diseases Prog Note ---
Assessment/Plan Assessment/Plan Assessment: Sepsis- ?unclear source- r/o bacteremia. endocarditis, acute hIV -CXR: no acute disease -influenza sc neg -u.a neg Fever, Sp -2d Echo: no vegetations seen No leukocytosis FTT CVA MDD/Anxiety Anemia COPD DM2 Plan: -Continue empiric PO Linezolid and levaquin abx d# / as patient refusing IV abx (unclear source at this point and patient non complaint with work up including blood draws, blood culture) -10/17 SP Tamiflu #5 -10/14 SP Vanco and Cefepime #2 -10/13 SP Levaquin x1 -If recurrent fevers, will obtain CT H/C/A/P w/ to evaluate for source of fever. -Ok for discharge from ID stand point -f/u cx -Monitor CBC/CMP, temperatures -aspiration precautions Subjective Allergies: Coded Allergies: No Known Allergies (Unverified , 05/06/18) Subjective afebrile still refusign labs Objective Vital Signs Last 24 Hour Vital Signs Date Time Temp Pulse Resp B/P (MAP) Pulse Ox O2 Delivery O2 Flow Rate FiO2 10/18/18 09:00 Room Air 10/18/18 08:00 97.6 86 19 116/65 (82) 98 10/18/18 00:00 97.9 80 18 90/60 (70) 99 10/17/18 21:00 Room Air 10/17/18 20:00 97.8 82 17 95/56 (69) 98 10/17/18 16:34 97.6 83 19 105/63 (77) 99 10/17/18 15:21 97.5 77 19 85/50 (62) 99 10/17/18 12:00 97.3 81 20 77/52 (60) 98 Height (Feet): 5 Height (Inches): 11.00 Weight (Pounds): 128 Objective GENERAL: Calm in bed, oriented x2, HEENT: Jaw opens about 30% only, slight pain with movement. CARDIOVASCULAR: No murmur. LUNGS: Distant and clear. ABDOMEN: Bowel sounds positive. Nontender. Nondistended. EXTREMITIES: No cyanosis, clubbing, or edema. NEUROLOGIC: The patient moves all extremities, slightly weak. Current Medications Medications (Trade) Dose Ordered Sig/Tresa Route PRN Reason Start Time Stop Time Status Last Admin Dose Admin Acetaminophen (Tylenol) 650 mg Q4H PRN ORAL fever 10/10/18 21:30 11/09/18 21:29 10/14/18 03:09 Acetaminophen (Tylenol) 650 mg Q4H PRN ORAL Mild Pain (Pain Scale 1-3) 10/13/18 15:15 11/12/18 15:14 10/13/18 15:48 Al Hydroxide/Mg Hydroxide (Mylanta II) 30 ml Q6H PRN ORAL dyspepsia 10/10/18 21:30 11/09/18 21:29 Barium Sulfate (Varibar Honey) 250 ml NOW PRN MC RAD 10/15/18 11:00 10/18/18 18:00 Barium Sulfate (Varibar [place]) 240 ml NOW PRN MC RAD 10/15/18 11:00 10/18/18 18:00 Barium Sulfate (Varibar Pudding) 230 ml NOW PRN RAD 10/15/18 11:00 10/18/18 18:00 Barium Sulfate (Varibar Thin Liquid powder) 148 gm NOW PRN RAD 10/15/18 11:00 10/18/18 18:00 Dextrose (Dextrose 50%) 25 ml Q30M PRN IV Hypoglycemia 10/10/18 21:30 11/09/18 21:29 Dextrose (Dextrose 50%) 50 ml Q30M PRN IV Hypoglycemia 10/10/18 21:30 11/09/18 21:29 Heparin Sodium (Porcine) (Heparin 5000 units/ml) 5,000 units EVERY 12 HOURS SUBQ 10/11/18 09:00 11/10/18 08:59 10/18/18 08:56 Hydrocortisone (Hydrocortisone) 1 applic Q6H PRN TOPIC Itching 10/14/18 11:00 11/13/18 10:59 Insulin Aspart (NovoLOG) BEFORE MEALS AND HS SUBQ 10/11/18 06:30 11/10/18 06:29 Levofloxacin (Levaquin) 750 mg Q24H ORAL 10/14/18 21:00 10/21/18 20:59 10/17/18 21:33 Linezolid (Zyvox) 600 mg EVERY 12 HOURS ORAL 10/14/18 21:00 10/19/18 20:59 10/18/18 08:55 Ondansetron HCl (Zofran) 4 mg Q6H PRN IVP Nausea & Vomiting 10/10/18 21:30 11/09/18 21:29 Polyethylene Glycol (Miralax) 17 gm HSPRN PRN ORAL Constipation 10/10/18 21:30 11/09/18 21:29 Risperidone (RisperDAL) 1 mg BID ORAL 10/11/18 09:00 11/10/18 08:59 10/18/18 08:55 Ally Horowitz M.D. Oct 18, 2018 11:34
--- NOTE | 2018-10-18 11:49 | GI Progress Note ---
Assessment/Plan Problems: (1) History of CVA (cerebrovascular accident) ICD Codes: Z86.73 - Personal history of transient ischemic attack (TIA), and cerebral infarction without residual deficits SNOMED: 518485502 (2) Severe malnutrition ICD Codes: E43 - Unspecified severe protein-calorie malnutrition SNOMED: 01663527 (3) Dysphagia ICD Codes: R13.10 - Dysphagia, unspecified SNOMED: 58380922, 847095516 (4) Anemia ICD Codes: D64.9 - Anemia, unspecified SNOMED: 869932074 (5) Failure to thrive SNOMED: 62734076 (6) Protein-calorie malnutrition, severe ICD Codes: E43 - Unspecified severe protein-calorie malnutrition SNOMED: 784783113 Status: stable Status Narrative Discussed with Dr. Wilson. Assessment/Plan s/p CVA ST evaluation noted >> cont current diet calorie count >> nutrition needs met okay for DC per GI standpoint supportive care at this time push PO OB stool r/o GI bleed monitor H&H, prn transfusions bowel regime >> colace daily ppi fu labs add marinol needs outpatient referral for lock jaw The patient was seen and examined at bedside and all new and available data was reviewed in the patients chart. I agree with the above findings, impression and plan. (Patient seen earlier today. Signature stamp does not reflect patient encounter time.). - Kp Wilson MD Subjective Subjective tolerating diet Objective Last 24 Hour Vital Signs Date Time Temp Pulse Resp B/P (MAP) Pulse Ox O2 Delivery O2 Flow Rate FiO2 10/18/18 09:00 Room Air 10/18/18 08:00 97.6 86 19 116/65 (82) 98 10/18/18 00:00 97.9 80 18 90/60 (70) 99 10/17/18 21:00 Room Air 10/17/18 20:00 97.8 82 17 95/56 (69) 98 10/17/18 16:34 97.6 83 19 105/63 (77) 99 10/17/18 15:21 97.5 77 19 85/50 (62) 99 10/17/18 12:00 97.3 81 20 77/52 (60) 98 Intake and Output 10/17/18 10/18/18 19:00 07:00 Intake Total 200 ml 660 ml Output Total 200 ml 1120 ml Balance 0 ml -460 ml Intake Oral 200 ml 660 ml Output Urine Total 200 ml 1120 ml # Voids 1 Height (Feet): 5 Height (Inches): 11.00 Weight (Pounds): 128 General Appearance: WD/WN, no apparent distress, alert Cardiovascular: normal rate Respiratory/Chest: normal breath sounds, no respiratory distress Abdominal Exam: normal bowel sounds, non tender, soft Extremities: non-tender Miguel Guerrero NP Oct 18, 2018 11:49
[2018-10-18 12:00] VITALS: BP 88/57
--- NOTE | 2018-10-18 13:38 | Pulmonology Progress Note ---
Assessment/Plan Problems: (1) Sepsis (2) Dysphagia (3) Protein-calorie malnutrition, severe (4) Anemia (5) Diabetes mellitus (6) History of CVA (cerebrovascular accident) Assessment/Plan eating better improving no more fevers pt refusing IV dc planning Subjective ROS Limited/Unobtainable: No Constitutional: Reports: no symptoms HEENT: Repors: no symptoms Respiratory: Reports: no symptoms Allergies: Coded Allergies: No Known Allergies (Unverified , 05/06/18) Objective Last 24 Hour Vital Signs Date Time Temp Pulse Resp B/P (MAP) Pulse Ox O2 Delivery O2 Flow Rate FiO2 10/18/18 12:00 97.6 84 19 88/57 (67) 99 10/18/18 09:00 Room Air 10/18/18 08:00 97.6 86 19 116/65 (82) 98 10/18/18 00:00 97.9 80 18 90/60 (70) 99 10/17/18 21:00 Room Air 10/17/18 20:00 97.8 82 17 95/56 (69) 98 10/17/18 16:34 97.6 83 19 105/63 (77) 99 10/17/18 15:21 97.5 77 19 85/50 (62) 99 Intake and Output 10/17/18 10/18/18 19:00 07:00 Intake Total 200 ml 660 ml Output Total 200 ml 1120 ml Balance 0 ml -460 ml Intake Oral 200 ml 660 ml Output Urine Total 200 ml 1120 ml # Voids 1 Objective General Appearance: WD/WN HEENT: normocephalic Respiratory/Chest: chest wall non-tender, lungs clear, normal breath sounds Cardiovascular: normal peripheral pulses, normal rate Abdomen: normal bowel sounds, soft, non tender Genitourinary: normal external genitalia Extremities: no clubbing Skin: no rash Current Medications Medications (Trade) Dose Ordered Sig/Tresa Route PRN Reason Start Time Stop Time Status Last Admin Dose Admin Acetaminophen (Tylenol) 650 mg Q4H PRN ORAL fever 10/10/18 21:30 11/09/18 21:29 10/14/18 03:09 Acetaminophen (Tylenol) 650 mg Q4H PRN ORAL Mild Pain (Pain Scale 1-3) 10/13/18 15:15 11/12/18 15:14 10/13/18 15:48 Al Hydroxide/Mg Hydroxide (Mylanta II) 30 ml Q6H PRN ORAL dyspepsia 10/10/18 21:30 11/09/18 21:29 Barium Sulfate (Varibar Honey) 250 ml NOW PRN MC RAD 10/15/18 11:00 10/18/18 18:00 Barium Sulfate (Varibar [place]) 240 ml NOW PRN MC RAD 10/15/18 11:00 10/18/18 18:00 Barium Sulfate (Varibar Pudding) 230 ml NOW PRN MC RAD 10/15/18 11:00 10/18/18 18:00 Barium Sulfate (Varibar Thin Liquid powder) 148 gm NOW PRN MC RAD 10/15/18 11:00 10/18/18 18:00 Dextrose (Dextrose 50%) 25 ml Q30M PRN IV Hypoglycemia 10/10/18 21:30 11/09/18 21:29 Dextrose (Dextrose 50%) 50 ml Q30M PRN IV Hypoglycemia 10/10/18 21:30 11/09/18 21:29 Heparin Sodium (Porcine) (Heparin 5000 units/ml) 5,000 units EVERY 12 HOURS SUBQ 10/11/18 09:00 11/10/18 08:59 10/18/18 08:56 Hydrocortisone (Hydrocortisone) 1 applic Q6H PRN TOPIC Itching 10/14/18 11:00 11/13/18 10:59 Insulin Aspart (NovoLOG) BEFORE MEALS AND HS SUBQ 10/11/18 06:30 11/10/18 06:29 Levofloxacin (Levaquin) 750 mg Q24H ORAL 10/14/18 21:00 10/21/18 20:59 10/17/18 21:33 Linezolid (Zyvox) 600 mg EVERY 12 HOURS ORAL 10/14/18 21:00 10/19/18 20:59 10/18/18 08:55 Ondansetron HCl (Zofran) 4 mg Q6H PRN IVP Nausea & Vomiting 10/10/18 21:30 11/09/18 21:29 Polyethylene Glycol (Miralax) 17 gm HSPRN PRN ORAL Constipation 10/10/18 21:30 11/09/18 21:29 Risperidone (RisperDAL) 1 mg BID ORAL 10/11/18 09:00 11/10/18 08:59 10/18/18 08:55 Galilea Macias MD Oct 18, 2018 13:37
--- NOTE | 2018-10-18 14:29 | General Progress Note ---
Assessment/Plan Problem List: (1) Failure to thrive SNOMED: 77227013 (2) Anemia ICD Codes: D64.9 - Anemia, unspecified SNOMED: 495197018 (3) Episode of generalized weakness ICD Codes: R53.1 - Weakness SNOMED: 62430788 (4) Diabetes mellitus ICD Codes: E11.9 - Type 2 diabetes mellitus without complications SNOMED: 35269898 (5) History of CVA (cerebrovascular accident) ICD Codes: Z86.73 - Personal history of transient ischemic attack (TIA), and cerebral infarction without residual deficits SNOMED: 454026975 (6) Protein-calorie malnutrition, severe ICD Codes: E43 - Unspecified severe protein-calorie malnutrition SNOMED: 382248002 Status: stable, progressing Assessment/Plan ot pt diet cbc bmp am neuro eval dc to snf if clear Subjective Constitutional: Reports: weakness Allergies: Coded Allergies: No Known Allergies (Unverified , 05/06/18) All Systems: reviewed and negative except above Subjective sleepy calm Objective Last 24 Hour Vital Signs Date Time Temp Pulse Resp B/P (MAP) Pulse Ox O2 Delivery O2 Flow Rate FiO2 10/18/18 12:00 97.6 84 19 88/57 (67) 99 10/18/18 09:00 Room Air 10/18/18 08:00 97.6 86 19 116/65 (82) 98 10/18/18 00:00 97.9 80 18 90/60 (70) 99 10/17/18 21:00 Room Air 10/17/18 20:00 97.8 82 17 95/56 (69) 98 10/17/18 16:34 97.6 83 19 105/63 (77) 99 10/17/18 15:21 97.5 77 19 85/50 (62) 99 Intake and Output 10/17/18 10/18/18 19:00 07:00 Intake Total 200 ml 660 ml Output Total 200 ml 1120 ml Balance 0 ml -460 ml Intake Oral 200 ml 660 ml Output Urine Total 200 ml 1120 ml # Voids 1 Height (Feet): 5 Height (Inches): 11.00 Weight (Pounds): 128 General Appearance: lethargic EENT: normal ENT inspection Neck: normal alignment Cardiovascular: normal peripheral pulses, normal rate, regular rhythm Respiratory/Chest: chest wall non-tender, lungs clear, normal breath sounds Abdomen: normal bowel sounds, non tender, soft Extremities: normal inspection Edema: no edema noted Arm (L), no edema noted Arm (R), no edema noted Leg (L), no edema noted Leg (R), no edema noted Pedal (L), no edema noted Pedal (R), no edema noted Generalized Neurologic: responsive, motor weakness Skin: normal pigmentation, warm/dry Rolando Albright DO Oct 18, 2018 14:29
[2018-10-18 16:00] VITALS: BP 94/60
[2018-10-18 20:00] VITALS: BP 110/61
[2018-10-19 04:00] VITALS: BP 88/56
[2018-10-19] MEDS: NovoLOG Insulin Flexpen SUBQ SCH ×4 (06:20→20:28)
[2018-10-19 08:00] VITALS: BP 90/69
[2018-10-19] MEDS: Heparin 5000 units/ml inj SUBQ SCH ×2 (08:26→20:16)
--- NOTE | 2018-10-19 09:46 | Infectious Diseases Prog Note ---
Assessment/Plan Assessment/Plan Assessment: Sepsis, SP- ?unclear source- r/o bacteremia. endocarditis, acute hIV -CXR: no acute disease -influenza sc neg -u.a neg Fever, Sp -2d Echo: no vegetations seen No leukocytosis FTT CVA MDD/Anxiety Anemia COPD DM2 Plan: -Continue empiric PO Linezolid and levaquin abx d# as patient refusing IV abx (unclear source at this point and patient non complaint with work up including blood draws, blood culture) -10/17 SP Tamiflu #5 -10/14 SP Vanco and Cefepime #2 -10/13 SP Levaquin x1 -If recurrent fevers, will obtain CT H/C/A/P w/ to evaluate for source of fever. -Ok for discharge from ID stand point -f/u cx -Monitor CBC/CMP, temperatures -aspiration precautions Subjective Allergies: Coded Allergies: No Known Allergies (Unverified , 05/06/18) Subjective afebrile still refusign labs Objective Vital Signs Last 24 Hour Vital Signs Date Time Temp Pulse Resp B/P (MAP) Pulse Ox O2 Delivery O2 Flow Rate FiO2 10/19/18 08:14 Room Air 10/19/18 08:00 97.8 81 19 90/69 (76) 100 10/19/18 04:00 97.5 82 17 88/56 (67) 98 10/18/18 21:00 Room Air 10/18/18 20:00 96.8 71 17 110/61 (77) 100 10/18/18 16:00 98.1 83 20 94/60 (71) 99 10/18/18 12:00 97.6 84 19 88/57 (67) 99 Height (Feet): 5 Height (Inches): 11.00 Weight (Pounds): 128 Objective GENERAL: Calm in bed, oriented x2, HEENT: Jaw opens about 30% only, slight pain with movement. CARDIOVASCULAR: No murmur. LUNGS: Distant and clear. ABDOMEN: Bowel sounds positive. Nontender. Nondistended. EXTREMITIES: No cyanosis, clubbing, or edema. NEUROLOGIC: The patient moves all extremities, slightly weak. Current Medications Medications (Trade) Dose Ordered Sig/Tresa Route PRN Reason Start Time Stop Time Status Last Admin Dose Admin Acetaminophen (Tylenol) 650 mg Q4H PRN ORAL fever 10/10/18 21:30 11/09/18 21:29 10/14/18 03:09 Acetaminophen (Tylenol) 650 mg Q4H PRN ORAL Mild Pain (Pain Scale 1-3) 10/13/18 15:15 11/12/18 15:14 10/13/18 15:48 Al Hydroxide/Mg Hydroxide (Mylanta II) 30 ml Q6H PRN ORAL dyspepsia 10/10/18 21:30 11/09/18 21:29 Dextrose (Dextrose 50%) 25 ml Q30M PRN IV Hypoglycemia 10/10/18 21:30 11/09/18 21:29 Dextrose (Dextrose 50%) 50 ml Q30M PRN IV Hypoglycemia 10/10/18 21:30 11/09/18 21:29 Heparin Sodium (Porcine) (Heparin 5000 units/ml) 5,000 units EVERY 12 HOURS SUBQ 10/11/18 09:00 11/10/18 08:59 10/19/18 08:26 Hydrocortisone (Hydrocortisone) 1 applic Q6H PRN TOPIC Itching 10/14/18 11:00 11/13/18 10:59 Insulin Aspart (NovoLOG) BEFORE MEALS AND HS SUBQ 10/11/18 06:30 11/10/18 06:29 Levofloxacin (Levaquin) 750 mg Q24H ORAL 10/14/18 21:00 10/21/18 20:59 10/18/18 21:37 Linezolid (Zyvox) 600 mg EVERY 12 HOURS ORAL 10/14/18 21:00 10/19/18 20:59 10/19/18 08:25 Ondansetron HCl (Zofran) 4 mg Q6H PRN IVP Nausea & Vomiting 10/10/18 21:30 11/09/18 21:29 Polyethylene Glycol (Miralax) 17 gm HSPRN PRN ORAL Constipation 10/10/18 21:30 11/09/18 21:29 Risperidone (RisperDAL) 1 mg BID ORAL 10/11/18 09:00 11/10/18 08:59 10/19/18 08:25 Ally Horowitz M.D. Oct 19, 2018 09:46
--- NOTE | 2018-10-19 10:31 | General Progress Note ---
Assessment/Plan Status: stable, unchanged Assessment/Plan # Anemia of chronic disease -- rule out gi bleed, unknown trend of h/h given refused blood draws --> anemia panel has been ordered --> hgb goal >7, transfuse prn --> gi service has been consulted --> iron iv as indicated --> eval for hemolysis --> CONTINUES REFUSING LABS # Thrombocytosis - likely related to reactive process (and/or underlying infection) --> Continue to monitor for improvement --> Trend CBC as needed --> If continues to be elevated, consider to send for ELIZABETH-2 --> Smear reviewed and no abnormalities noted. *Under manual differential* --> REFUSING LABS # FTT with Severe malnutrition --> could also be related to anemia --> calory count daily as required --> consider nutrition eval and hydration --> consider use of appetite stimulants --> oral surgeon eval for lock jaw # Dysphagia --> may need peg --> appreciate gi recs --> oral surgeon eval for lock jaw # Episode of generalized weakness # Hyperproteneimia --> spep and upep have been ordered - pending # s/p CVA # Resp symptoms --> has been refusing tamiflu Appreciate consultation greatly! Subjective Date patient seen: Oct 19, 2018 Hematologic/Lymphatic: Reports: anemia Allergies: Coded Allergies: No Known Allergies (Unverified , 05/06/18) All Systems: reviewed and negative except above Subjective Pt awake and alert. No acute events. Pt noncompliant with care. Afebrile. Objective Last 24 Hour Vital Signs Date Time Temp Pulse Resp B/P (MAP) Pulse Ox O2 Delivery O2 Flow Rate FiO2 10/19/18 08:14 Room Air 10/19/18 08:00 97.8 81 19 90/69 (76) 100 10/19/18 04:00 97.5 82 17 88/56 (67) 98 10/18/18 21:00 Room Air 10/18/18 20:00 96.8 71 17 110/61 (77) 100 10/18/18 16:00 98.1 83 20 94/60 (71) 99 10/18/18 12:00 97.6 84 19 88/57 (67) 99 Intake and Output 10/18/18 10/19/18 19:00 07:00 Intake Total 1660 ml 300 ml Balance 1660 ml 300 ml Intake Oral 1660 ml 300 ml # Voids 2 3 Height (Feet): 5 Height (Inches): 11.00 Weight (Pounds): 128 Objective General Appearance: well appearing, no apparent distress, alert, thin Head: normocephalic EENT: PERRL/EOMI, normal ENT inspection Neck: supple Respiratory: normal breath sounds, no respiratory distress Cardiovascular: normal rate Gl: normal inspection, non tender, soft, normal bowel sounds, nd Rectal: has been deferred Musculoskeletal: normal inspection, back normal Neurologic: normal inspection, alert, oriented x3, is responsive Skin: normal inspection, normal color, no rash, warm/dry Lymphatic: normal inspection, no adenopathy Jaleel Maravilla MD Oct 19, 2018 10:31
[2018-10-19 12:00] VITALS: BP 81/56
--- NOTE | 2018-10-19 12:02 | GI Progress Note ---
Assessment/Plan Problems: (1) History of CVA (cerebrovascular accident) ICD Codes: Z86.73 - Personal history of transient ischemic attack (TIA), and cerebral infarction without residual deficits SNOMED: 446701848 (2) Severe malnutrition ICD Codes: E43 - Unspecified severe protein-calorie malnutrition SNOMED: 92859951 (3) Dysphagia ICD Codes: R13.10 - Dysphagia, unspecified SNOMED: 77287275, 241732181 (4) Anemia ICD Codes: D64.9 - Anemia, unspecified SNOMED: 722311726 (5) Failure to thrive SNOMED: 60866966 (6) Protein-calorie malnutrition, severe ICD Codes: E43 - Unspecified severe protein-calorie malnutrition SNOMED: 394632265 Status: stable, unchanged Status Narrative Discussed with Dr. Wilson. Assessment/Plan s/p CVA ST evaluation noted >> cont current diet calorie count >> nutrition needs met okay for DC per GI standpoint supportive care at this time push PO OB stool r/o GI bleed monitor H&H, prn transfusions bowel regime >> colace daily ppi fu labs add marinol needs outpatient referral for lock jaw The patient was seen and examined at bedside and all new and available data was reviewed in the patients chart. I agree with the above findings, impression and plan. (Patient seen earlier today. Signature stamp does not reflect patient encounter time.). - Kp Wilson MD Subjective Subjective tolerating diet Objective Last 24 Hour Vital Signs Date Time Temp Pulse Resp B/P (MAP) Pulse Ox O2 Delivery O2 Flow Rate FiO2 10/19/18 08:14 Room Air 10/19/18 08:00 97.8 81 19 90/69 (76) 100 10/19/18 04:00 97.5 82 17 88/56 (67) 98 10/18/18 21:00 Room Air 10/18/18 20:00 96.8 71 17 110/61 (77) 100 10/18/18 16:00 98.1 83 20 94/60 (71) 99 Intake and Output 10/18/18 10/19/18 19:00 07:00 Intake Total 1660 ml 300 ml Balance 1660 ml 300 ml Intake Oral 1660 ml 300 ml # Voids 2 3 Height (Feet): 5 Height (Inches): 11.00 Weight (Pounds): 128 General Appearance: WD/WN, no apparent distress, alert Cardiovascular: normal rate Respiratory/Chest: normal breath sounds, no respiratory distress Abdominal Exam: normal bowel sounds, non tender, soft Extremities: non-tender Miguel Guerrero NP Oct 19, 2018 12:02
--- NOTE | 2018-10-19 15:17 | General Progress Note ---
Assessment/Plan Problem List: (1) Failure to thrive SNOMED: 99674251 (2) Anemia ICD Codes: D64.9 - Anemia, unspecified SNOMED: 036790120 (3) Episode of generalized weakness ICD Codes: R53.1 - Weakness SNOMED: 24699349 (4) Diabetes mellitus ICD Codes: E11.9 - Type 2 diabetes mellitus without complications SNOMED: 38859690 (5) History of CVA (cerebrovascular accident) ICD Codes: Z86.73 - Personal history of transient ischemic attack (TIA), and cerebral infarction without residual deficits SNOMED: 035197816 (6) Protein-calorie malnutrition, severe ICD Codes: E43 - Unspecified severe protein-calorie malnutrition SNOMED: 582002819 Status: stable, progressing Assessment/Plan ot pt diet cbc bmp am neuro eval dc w hh if clear Subjective Constitutional: Reports: weakness Allergies: Coded Allergies: No Known Allergies (Unverified , 05/06/18) All Systems: reviewed and negative except above Subjective sleepy calm Objective Last 24 Hour Vital Signs Date Time Temp Pulse Resp B/P (MAP) Pulse Ox O2 Delivery O2 Flow Rate FiO2 10/19/18 12:00 97.4 83 19 81/56 (64) 100 10/19/18 08:14 Room Air 10/19/18 08:00 97.8 81 19 90/69 (76) 100 10/19/18 04:00 97.5 82 17 88/56 (67) 98 10/18/18 21:00 Room Air 10/18/18 20:00 96.8 71 17 110/61 (77) 100 10/18/18 16:00 98.1 83 20 94/60 (71) 99 Intake and Output 10/18/18 10/19/18 19:00 07:00 Intake Total 1660 ml 300 ml Balance 1660 ml 300 ml Intake Oral 1660 ml 300 ml # Voids 2 3 Height (Feet): 5 Height (Inches): 11.00 Weight (Pounds): 128 General Appearance: lethargic EENT: normal ENT inspection Neck: normal alignment Cardiovascular: normal peripheral pulses, normal rate, regular rhythm Respiratory/Chest: chest wall non-tender, lungs clear, normal breath sounds Abdomen: normal bowel sounds, non tender, soft Extremities: normal inspection Edema: no edema noted Arm (L), no edema noted Arm (R), no edema noted Leg (L), no edema noted Leg (R), no edema noted Pedal (L), no edema noted Pedal (R), no edema noted Generalized Neurologic: motor weakness Skin: normal pigmentation, warm/dry Rolando Albright DO Oct 19, 2018 15:17
[2018-10-19 16:00] VITALS: BP 80/47
[2018-10-19 20:00] VITALS: BP 94/59
[2018-10-20 04:00] VITALS: BP 82/50
[2018-10-20] MEDS: NovoLOG Insulin Flexpen SUBQ SCH ×4 (05:58→20:40)
--- NOTE | 2018-10-20 07:00 | General Progress Note ---
Assessment/Plan Assessment/Plan # Anemia of chronic disease -- rule out gi bleed, unknown trend of h/h given refused blood draws --> anemia panel has been ordered --> hgb goal >7, transfuse prn --> gi service has been consulted --> iron iv as indicated --> eval for hemolysis --> CONTINUES REFUSING LABS # Thrombocytosis - likely related to reactive process (and/or underlying infection) --> Continue to monitor for improvement --> Trend CBC as needed --> If continues to be elevated, consider to send for ELIZABETH-2 --> Smear reviewed and no abnormalities noted. *Under manual differential* --> REFUSING LABS # FTT with Severe malnutrition --> could also be related to anemia --> calory count daily as required --> consider nutrition eval and hydration --> consider use of appetite stimulants --> oral surgeon eval for lock jaw # Dysphagia --> may need peg --> appreciate gi recs --> oral surgeon eval for lock jaw op # Episode of generalized weakness # Hyperproteneimia --> spep and upep have been ordered - pending # s/p CVA # Resp symptoms --> has been refusing tamiflu Appreciate consultation greatly! Subjective Constitutional: Denies: no symptoms, chills, diaphoresis, fever, malaise, weakness, other Cardiovascular: Denies: no symptoms, chest pain, edema, irregular heart rate, lightheadedness, palpitations, syncope, other Respiratory: Denies: no symptoms, cough, orthopnea, shortness of breath, SOB with excertion, SOB at rest, sputum, stridor, wheezing, other Gastrointestinal/Abdominal: Denies: no symptoms, abdomen distended, abdominal pain, black stools, tarry stools, blood in stool, constipated, diarrhea, difficulty swallowing, nausea, poor appetite, poor fluid intake, rectal bleeding , vomiting, other Genitourinary: Denies: no symptoms, burning, discharge, frequency, flank pain, hematuria, incontinence, pain, urgency, other Neurologic/Psychiatric: Denies: no symptoms, anxiety, depressed, emotional problems, headache, numbness, paresthesia, pre-existing deficit, seizure, tingling, tremors, weakness, other Endocrine: Denies: no symptoms, excessive sweating, flushing, intolerance to cold, intolerance to heat, increased hunger, increased thirst, increased urine, unexplained weight gain, unexplained weight loss, other Allergies: Coded Allergies: No Known Allergies (Unverified , 05/06/18) Subjective Pt awake and alert. No acute events. Pt noncompliant with care. Afebrile. Discussed to get cbc, he refuses. Objective Last 24 Hour Vital Signs Date Time Temp Pulse Resp B/P (MAP) Pulse Ox O2 Delivery O2 Flow Rate FiO2 10/20/18 04:00 97.9 78 19 82/50 (61) 97 10/19/18 21:00 Room Air 10/19/18 20:00 97.6 78 18 94/59 (71) 98 10/19/18 16:00 97.6 77 18 80/47 (58) 98 10/19/18 12:00 97.4 83 19 81/56 (64) 100 10/19/18 08:14 Room Air 10/19/18 08:00 97.8 81 19 90/69 (76) 100 Intake and Output 10/19/18 10/20/18 19:00 07:00 Intake Total 1961 ml 240 ml Balance 1961 ml 240 ml Intake Oral 1961 ml 240 ml # Voids 6 1 # Bowel Movements 2 Height (Feet): 5 Height (Inches): 11.00 Weight (Pounds): 123 Objective General Appearance: well appearing, no apparent distress, alert, thin Head: normocephalic EENT: PERRL/EOMI, nml ENT inspection Neck: supple Respiratory: normal breath sounds, no respiratory distress Cardiovascular: normal rate Gl: normal inspection, non tender, soft, normal bowel sounds, nd Musculoskeletal: normal inspection, back normal Neurologic: normal inspection, alert, oriented x3, is responsive Skin: normal inspection, normal color, no rash, warm/dry Lymphatic: normal inspection, no adenopathy Jaleel Maravilla MD Oct 20, 2018 07:00
[2018-10-20 08:00] VITALS: BP 81/53
[2018-10-20] MEDS: Heparin 5000 units/ml inj SUBQ SCH ×2 (09:10→20:40)
[2018-10-20 12:00] VITALS: BP 106/69
--- NOTE | 2018-10-20 12:20 | GI Progress Note ---
Assessment/Plan Problems: (1) History of CVA (cerebrovascular accident) ICD Codes: Z86.73 - Personal history of transient ischemic attack (TIA), and cerebral infarction without residual deficits SNOMED: 945746613 (2) Severe malnutrition ICD Codes: E43 - Unspecified severe protein-calorie malnutrition SNOMED: 03322189 (3) Dysphagia ICD Codes: R13.10 - Dysphagia, unspecified SNOMED: 86550259, 152759368 (4) Anemia ICD Codes: D64.9 - Anemia, unspecified SNOMED: 963973552 (5) Failure to thrive SNOMED: 14676090 (6) Protein-calorie malnutrition, severe ICD Codes: E43 - Unspecified severe protein-calorie malnutrition SNOMED: 797839102 Status: stable, unchanged Status Narrative Discussed with Dr. Wilson. Assessment/Plan s/p CVA ST evaluation noted >> cont current diet calorie count >> nutrition needs met okay for DC per GI standpoint supportive care at this time push PO OB stool r/o GI bleed monitor H&H, prn transfusions bowel regime >> colace daily ppi fu labs add marinol needs outpatient referral for lock jaw The patient was seen and examined at bedside and all new and available data was reviewed in the patients chart. I agree with the above findings, impression and plan. (Patient seen earlier today. Signature stamp does not reflect patient encounter time.). - Kp Wilson MD Subjective Subjective tolerating diet Objective Last 24 Hour Vital Signs Date Time Temp Pulse Resp B/P (MAP) Pulse Ox O2 Delivery O2 Flow Rate FiO2 10/20/18 09:00 Room Air 10/20/18 08:00 97.5 85 18 81/53 (62) 99 10/20/18 04:00 97.9 78 19 82/50 (61) 97 10/19/18 21:00 Room Air 10/19/18 20:00 97.6 78 18 94/59 (71) 98 10/19/18 16:00 97.6 77 18 80/47 (58) 98 Intake and Output 10/19/18 10/20/18 19:00 07:00 Intake Total 1961 ml 240 ml Balance 1961 ml 240 ml Intake Oral 1961 ml 240 ml # Voids 6 1 # Bowel Movements 2 Height (Feet): 5 Height (Inches): 11.00 Weight (Pounds): 123 General Appearance: WD/WN, no apparent distress, alert, thin Cardiovascular: normal rate Respiratory/Chest: normal breath sounds, no respiratory distress Abdominal Exam: normal bowel sounds, non tender, soft Extremities: non-tender Miguel Guerrero NP Oct 20, 2018 12:20
--- NOTE | 2018-10-20 12:28 | General Progress Note ---
Assessment/Plan Problem List: (1) Failure to thrive SNOMED: 35548107 (2) Anemia ICD Codes: D64.9 - Anemia, unspecified SNOMED: 995242718 (3) Episode of generalized weakness ICD Codes: R53.1 - Weakness SNOMED: 75009874 (4) Diabetes mellitus ICD Codes: E11.9 - Type 2 diabetes mellitus without complications SNOMED: 79359197 (5) History of CVA (cerebrovascular accident) ICD Codes: Z86.73 - Personal history of transient ischemic attack (TIA), and cerebral infarction without residual deficits SNOMED: 700826328 (6) Protein-calorie malnutrition, severe ICD Codes: E43 - Unspecified severe protein-calorie malnutrition SNOMED: 306620719 Status: stable, progressing Assessment/Plan ot pt diet cbc bmp am neuro eval dc w hh if clear Subjective Constitutional: Reports: weakness Allergies: Coded Allergies: No Known Allergies (Unverified , 05/06/18) All Systems: reviewed and negative except above Subjective sleepy calm Objective Last 24 Hour Vital Signs Date Time Temp Pulse Resp B/P (MAP) Pulse Ox O2 Delivery O2 Flow Rate FiO2 10/20/18 09:00 Room Air 10/20/18 08:00 97.5 85 18 81/53 (62) 99 10/20/18 04:00 97.9 78 19 82/50 (61) 97 10/19/18 21:00 Room Air 10/19/18 20:00 97.6 78 18 94/59 (71) 98 10/19/18 16:00 97.6 77 18 80/47 (58) 98 Intake and Output 10/19/18 10/20/18 19:00 07:00 Intake Total 1961 ml 240 ml Balance 1961 ml 240 ml Intake Oral 1961 ml 240 ml # Voids 6 1 # Bowel Movements 2 Height (Feet): 5 Height (Inches): 11.00 Weight (Pounds): 123 General Appearance: lethargic EENT: normal ENT inspection Neck: normal alignment Cardiovascular: normal peripheral pulses, normal rate, regular rhythm Respiratory/Chest: chest wall non-tender, lungs clear, normal breath sounds Abdomen: normal bowel sounds, non tender, soft Extremities: normal inspection Edema: no edema noted Arm (L), no edema noted Arm (R), no edema noted Leg (L), no edema noted Leg (R), no edema noted Pedal (L), no edema noted Pedal (R), no edema noted Generalized Neurologic: responsive, motor weakness Skin: normal pigmentation, warm/dry Rolando Albright DO Oct 20, 2018 12:28
[2018-10-20 16:00] VITALS: BP 85/54
--- NOTE | 2018-10-20 17:20 | Infectious Diseases Prog Note ---
Assessment/Plan Assessment/Plan Assessment: Sepsis, SP- ?unclear source- r/o bacteremia. endocarditis, acute hIV -CXR: no acute disease -influenza sc neg -u.a neg Fever, Sp -2d Echo: no vegetations seen No leukocytosis FTT CVA MDD/Anxiety Anemia COPD DM2 Plan: -Continue to monitor off abx -10/19 SP empiric PO Linezolid and levaquin abx d# 7 -10/17 SP Tamiflu #5 -/ SP Vanco and Cefepime #2 -10/13 SP Levaquin x1 -If recurrent fevers, will obtain CT H/C/A/P w/ to evaluate for source of fever. -Ok for discharge from ID stand point -Monitor CBC/CMP, temperatures -aspiration precautions Subjective Allergies: Coded Allergies: No Known Allergies (Unverified , 05/06/18) Subjective afebrile off abx now Objective Vital Signs Last 24 Hour Vital Signs Date Time Temp Pulse Resp B/P (MAP) Pulse Ox O2 Delivery O2 Flow Rate FiO2 10/20/18 16:00 97.3 84 16 85/54 (64) 96 10/20/18 12:00 97.8 97 16 106/69 (81) 98 10/20/18 09:00 Room Air 10/20/18 08:00 97.5 85 18 81/53 (62) 99 10/20/18 04:00 97.9 78 19 82/50 (61) 97 10/19/18 21:00 Room Air 10/19/18 20:00 97.6 78 18 94/59 (71) 98 Height (Feet): 5 Height (Inches): 11.00 Weight (Pounds): 123 Objective GENERAL: Calm in bed, oriented x2, HEENT: Jaw opens about 30% only, slight pain with movement. CARDIOVASCULAR: No murmur. LUNGS: Distant and clear. ABDOMEN: Bowel sounds positive. Nontender. Nondistended. EXTREMITIES: No cyanosis, clubbing, or edema. NEUROLOGIC: The patient moves all extremities, slightly weak. Current Medications Medications (Trade) Dose Ordered Sig/Tresa Route PRN Reason Start Time Stop Time Status Last Admin Dose Admin Acetaminophen (Tylenol) 650 mg Q4H PRN ORAL fever 10/10/18 21:30 11/09/18 21:29 10/14/18 03:09 Acetaminophen (Tylenol) 650 mg Q4H PRN ORAL Mild Pain (Pain Scale 1-3) 10/13/18 15:15 11/12/18 15:14 10/13/18 15:48 Al Hydroxide/Mg Hydroxide (Mylanta II) 30 ml Q6H PRN ORAL dyspepsia 10/10/18 21:30 11/09/18 21:29 Dextrose (Dextrose 50%) 25 ml Q30M PRN IV Hypoglycemia 10/10/18 21:30 11/09/18 21:29 Dextrose (Dextrose 50%) 50 ml Q30M PRN IV Hypoglycemia 10/10/18 21:30 11/09/18 21:29 Heparin Sodium (Porcine) (Heparin 5000 units/ml) 5,000 units EVERY 12 HOURS SUBQ 10/11/18 09:00 11/10/18 08:59 10/20/18 09:10 Hydrocortisone (Hydrocortisone) 1 applic Q6H PRN TOPIC Itching 10/14/18 11:00 11/13/18 10:59 Insulin Aspart (NovoLOG) BEFORE MEALS AND HS SUBQ 10/11/18 06:30 11/10/18 06:29 Levofloxacin (Levaquin) 750 mg Q24H ORAL 10/14/18 21:00 10/21/18 20:59 10/19/18 20:16 Ondansetron HCl (Zofran) 4 mg Q6H PRN IVP Nausea & Vomiting 10/10/18 21:30 11/09/18 21:29 Polyethylene Glycol (Miralax) 17 gm HSPRN PRN ORAL Constipation 10/10/18 21:30 11/09/18 21:29 Risperidone (RisperDAL) 1 mg BID ORAL 10/11/18 09:00 11/10/18 08:59 10/20/18 09:07 Ally Horowitz M.D. Oct 20, 2018 17:20
[2018-10-20 20:00] VITALS: BP 93/56
[2018-10-21] VITALS: BP 104/61
[2018-10-21 04:00] VITALS: BP 80/50
[2018-10-21] MEDS: NovoLOG Insulin Flexpen SUBQ SCH ×4 (05:48→20:31)
--- NOTE | 2018-10-21 06:52 | General Progress Note ---
Assessment/Plan Assessment/Plan # Anemia of chronic disease -- rule out gi bleed, unknown trend of h/h given refused blood draws --> anemia panel has been ordered in the past (REFUSED) --> hgb goal >7, transfuse prn --> gi service has been consulted --> iron iv as indicated --> eval for hemolysis --> CONTINUES REFUSING LABS # Thrombocytosis - likely related to reactive process (and/or underlying infection) --> Continue to monitor for improvement --> Trend CBC as needed --> If continues to be elevated, consider to send for ELIZABETH-2 --> Smear reviewed and no abnormalities noted. *Under manual differential* --> REFUSING LABS # FTT with Severe malnutrition --> could also be related to anemia --> calory count daily as required --> consider nutrition eval and hydration --> consider use of appetite stimulants --> oral surgeon eval for lock jaw # Dysphagia --> may need peg --> appreciate gi recs --> oral surgeon eval for lock jaw op # Episode of generalized weakness # Hyperproteneimia --> spep and upep have been ordered - pending # s/p CVA # Resp symptoms --> has been refusing tamiflu Appreciate consultation greatly! Subjective Constitutional: Denies: no symptoms, chills, diaphoresis, fever, malaise, weakness, other HEENT: Denies: no symptoms, eye pain, blurred vision, tearing, double vision, ear pain, ear discharge, nose pain, nose congestion, throat pain, throat swelling, mouth pain, mouth swelling, other Cardiovascular: Denies: no symptoms, chest pain, edema, irregular heart rate, lightheadedness, palpitations, syncope, other Respiratory: Denies: no symptoms, cough, orthopnea, shortness of breath, SOB with excertion, SOB at rest, sputum, stridor, wheezing, other Gastrointestinal/Abdominal: Denies: no symptoms, abdomen distended, abdominal pain, black stools, tarry stools, blood in stool, constipated, diarrhea, difficulty swallowing, nausea, poor appetite, poor fluid intake, rectal bleeding , vomiting, other Genitourinary: Denies: no symptoms, burning, discharge, frequency, flank pain, hematuria, incontinence, pain, urgency, other Endocrine: Denies: no symptoms, excessive sweating, flushing, intolerance to cold, intolerance to heat, increased hunger, increased thirst, increased urine, unexplained weight gain, unexplained weight loss, other Hematologic/Lymphatic: Denies: no symptoms, anemia, easy bleeding, easy bruising, other Allergies: Coded Allergies: No Known Allergies (Unverified , 05/06/18) Subjective Pt awake and alert. No acute events. Pt noncompliant with care. Afebrile. Discussed to get cbc, again he refuses. Objective Last 24 Hour Vital Signs Date Time Temp Pulse Resp B/P (MAP) Pulse Ox O2 Delivery O2 Flow Rate FiO2 10/21/18 04:00 97.0 78 17 80/50 (60) 99 10/21/18 00:00 97.2 74 18 104/61 (75) 99 10/20/18 21:00 Room Air 10/20/18 20:00 97.2 84 18 93/56 (68) 98 10/20/18 16:00 97.3 84 16 85/54 (64) 96 10/20/18 12:00 97.8 97 16 106/69 (81) 98 10/20/18 09:00 Room Air 10/20/18 08:00 97.5 85 18 81/53 (62) 99 Intake and Output 10/20/18 10/21/18 18:59 06:59 Intake Total 1000 ml 780 ml Balance 1000 ml 780 ml Intake Oral 1000 ml 780 ml # Voids 4 3 # Bowel Movements 1 Height (Feet): 5 Height (Inches): 11.00 Weight (Pounds): 123 General Appearance: alert EENT: TMs normal Neck: supple Cardiovascular: regular rhythm Respiratory/Chest: lungs clear Abdomen: no organomegaly Genitourinary/Rectal: heme negative stool Edema: mild edema Neurologic: oriented x 3 Objective General Appearance: well appearing, no apparent distress, alert, thin Head: normocephalic EENT: PERRL/EOMI, nml ENT inspection Neck: supple Respiratory: normal breath sounds, no respiratory distress Cardiovascular: normal rate Gl: normal inspection, non tender, soft, normal bowel sounds, nd Musculoskeletal: normal inspection, back normal Neurologic: normal inspection, alert, oriented x3, is responsive Skin: normal inspection, normal color, no rash, warm/dry Lymphatic: normal inspection, no adenopathy Jaleel Maravilla MD Oct 21, 2018 06:52
[2018-10-21 08:23] VITALS: BP 92/55
[2018-10-21] MEDS: Heparin 5000 units/ml inj SUBQ SCH ×2 (08:32→20:32)
--- NOTE | 2018-10-21 10:37 | GI Progress Note ---
Assessment/Plan Problems: (1) History of CVA (cerebrovascular accident) ICD Codes: Z86.73 - Personal history of transient ischemic attack (TIA), and cerebral infarction without residual deficits SNOMED: 152569569 (2) Severe malnutrition ICD Codes: E43 - Unspecified severe protein-calorie malnutrition SNOMED: 80194468 (3) Dysphagia ICD Codes: R13.10 - Dysphagia, unspecified SNOMED: 23713735, 923798899 (4) Anemia ICD Codes: D64.9 - Anemia, unspecified SNOMED: 941895033 (5) Failure to thrive SNOMED: 79427943 (6) Protein-calorie malnutrition, severe ICD Codes: E43 - Unspecified severe protein-calorie malnutrition SNOMED: 562492785 Status: stable Status Narrative Discussed with Dr. Wilson Assessment/Plan s/p CVA ST evaluation noted >> cont current diet calorie count >> nutrition needs met okay for DC per GI standpoint supportive care at this time push PO OB stool r/o GI bleed monitor H&H, prn transfusions bowel regime >> colace daily ppi fu labs add marinol needs outpatient referral for lock jaw The patient was seen and examined at bedside and all new and available data was reviewed in the patients chart. I agree with the above findings, impression and plan. (Patient seen earlier today. Signature stamp does not reflect patient encounter time.). - Kp Wilson MD Subjective Subjective tolerating diet No nausea or vomiting Objective Last 24 Hour Vital Signs Date Time Temp Pulse Resp B/P (MAP) Pulse Ox O2 Delivery O2 Flow Rate FiO2 10/21/18 09:00 Room Air 10/21/18 08:23 97.6 80 18 92/55 (67) 97 10/21/18 04:00 97.0 78 17 80/50 (60) 99 10/21/18 00:00 97.2 74 18 104/61 (75) 99 10/20/18 21:00 Room Air 10/20/18 20:00 97.2 84 18 93/56 (68) 98 10/20/18 16:00 97.3 84 16 85/54 (64) 96 10/20/18 12:00 97.8 97 16 106/69 (81) 98 Intake and Output 10/20/18 10/21/18 19:00 07:00 Intake Total 1000 ml 780 ml Balance 1000 ml 780 ml Intake Oral 1000 ml 780 ml # Voids 4 3 # Bowel Movements 1 Height (Feet): 5 Height (Inches): 11.00 Weight (Pounds): 123 General Appearance: WD/WN, no apparent distress, alert, thin Cardiovascular: normal rate Respiratory/Chest: normal breath sounds, no respiratory distress Abdominal Exam: normal bowel sounds, non tender, soft Extremities: non-tender Miguel Guerrero NP Oct 21, 2018 10:37
--- NOTE | 2018-10-21 11:12 | Infectious Diseases Prog Note ---
Assessment/Plan Assessment/Plan Assessment: Sepsis, SP- ?unclear source- r/o bacteremia. endocarditis, acute hIV -CXR: no acute disease -influenza sc neg -u.a neg Fever, Sp -2d Echo: no vegetations seen No leukocytosis FTT CVA MDD/Anxiety Anemia COPD DM2 Plan: -Continue to monitor off abx -10/19 SP empiric PO Linezolid and levaquin abx d# 7 -10/17 SP Tamiflu #5 -10/14 SP Vanco and Cefepime #2 -10/13 SP Levaquin x1 -If recurrent fevers, will obtain CT H/C/A/P w/ to evaluate for source of fever. -Ok for discharge from ID stand point -Monitor CBC/CMP, temperatures -aspiration precautions Subjective Allergies: Coded Allergies: No Known Allergies (Unverified , 05/06/18) Subjective afebrile off abx now Objective Vital Signs Last 24 Hour Vital Signs Date Time Temp Pulse Resp B/P (MAP) Pulse Ox O2 Delivery O2 Flow Rate FiO2 10/21/18 09:00 Room Air 10/21/18 08:23 97.6 80 18 92/55 (67) 97 10/21/18 04:00 97.0 78 17 80/50 (60) 99 10/21/18 00:00 97.2 74 18 104/61 (75) 99 10/20/18 21:00 Room Air 10/20/18 20:00 97.2 84 18 93/56 (68) 98 10/20/18 16:00 97.3 84 16 85/54 (64) 96 10/20/18 12:00 97.8 97 16 106/69 (81) 98 Height (Feet): 5 Height (Inches): 11.00 Weight (Pounds): 123 Objective GENERAL: Calm in bed, oriented x2, HEENT: Jaw opens about 30% only, slight pain with movement. CARDIOVASCULAR: No murmur. LUNGS: Distant and clear. ABDOMEN: Bowel sounds positive. Nontender. Nondistended. EXTREMITIES: No cyanosis, clubbing, or edema. NEUROLOGIC: The patient moves all extremities, slightly weak. Current Medications Medications (Trade) Dose Ordered Sig/Tresa Route PRN Reason Start Time Stop Time Status Last Admin Dose Admin Acetaminophen (Tylenol) 650 mg Q4H PRN ORAL fever 10/10/18 21:30 11/09/18 21:29 10/14/18 03:09 Acetaminophen (Tylenol) 650 mg Q4H PRN ORAL Mild Pain (Pain Scale 1-3) 10/13/18 15:15 11/12/18 15:14 10/13/18 15:48 Al Hydroxide/Mg Hydroxide (Mylanta II) 30 ml Q6H PRN ORAL dyspepsia 10/10/18 21:30 11/09/18 21:29 Dextrose (Dextrose 50%) 25 ml Q30M PRN IV Hypoglycemia 10/10/18 21:30 11/09/18 21:29 Dextrose (Dextrose 50%) 50 ml Q30M PRN IV Hypoglycemia 10/10/18 21:30 11/09/18 21:29 Heparin Sodium (Porcine) (Heparin 5000 units/ml) 5,000 units EVERY 12 HOURS SUBQ 10/11/18 09:00 11/10/18 08:59 10/21/18 08:32 Hydrocortisone (Hydrocortisone) 1 applic Q6H PRN TOPIC Itching 10/14/18 11:00 11/13/18 10:59 Insulin Aspart (NovoLOG) BEFORE MEALS AND HS SUBQ 10/11/18 06:30 11/10/18 06:29 Ondansetron HCl (Zofran) 4 mg Q6H PRN IVP Nausea & Vomiting 10/10/18 21:30 11/09/18 21:29 Polyethylene Glycol (Miralax) 17 gm HSPRN PRN ORAL Constipation 10/10/18 21:30 11/09/18 21:29 Risperidone (RisperDAL) 1 mg BID ORAL 10/11/18 09:00 11/10/18 08:59 10/21/18 08:29 Ally Horowitz M.D. Oct 21, 2018 11:12
[2018-10-21 12:48] VITALS: BP 81/54
--- NOTE | 2018-10-21 13:33 | General Progress Note ---
Assessment/Plan Problem List: (1) Failure to thrive SNOMED: 62821166 (2) Anemia ICD Codes: D64.9 - Anemia, unspecified SNOMED: 355664387 (3) Episode of generalized weakness ICD Codes: R53.1 - Weakness SNOMED: 57135257 (4) Diabetes mellitus ICD Codes: E11.9 - Type 2 diabetes mellitus without complications SNOMED: 23281766 (5) History of CVA (cerebrovascular accident) ICD Codes: Z86.73 - Personal history of transient ischemic attack (TIA), and cerebral infarction without residual deficits SNOMED: 547899556 (6) Protein-calorie malnutrition, severe ICD Codes: E43 - Unspecified severe protein-calorie malnutrition SNOMED: 450616191 Status: unchanged Assessment/Plan ot pt diet cbc bmp am neuro eval dc w hh if clear Subjective Constitutional: Reports: weakness Allergies: Coded Allergies: No Known Allergies (Unverified , 05/06/18) All Systems: reviewed and negative except above Subjective sleepy calm Objective Last 24 Hour Vital Signs Date Time Temp Pulse Resp B/P (MAP) Pulse Ox O2 Delivery O2 Flow Rate FiO2 10/21/18 12:48 97.4 92 18 81/54 (63) 98 10/21/18 09:00 Room Air 10/21/18 08:23 97.6 80 18 92/55 (67) 97 10/21/18 04:00 97.0 78 17 80/50 (60) 99 10/21/18 00:00 97.2 74 18 104/61 (75) 99 10/20/18 21:00 Room Air 10/20/18 20:00 97.2 84 18 93/56 (68) 98 10/20/18 16:00 97.3 84 16 85/54 (64) 96 Intake and Output 10/20/18 10/21/18 19:00 07:00 Intake Total 1000 ml 780 ml Balance 1000 ml 780 ml Intake Oral 1000 ml 780 ml # Voids 4 3 # Bowel Movements 1 Height (Feet): 5 Height (Inches): 11.00 Weight (Pounds): 123 General Appearance: lethargic EENT: normal ENT inspection Neck: normal alignment Cardiovascular: normal peripheral pulses, normal rate, regular rhythm Respiratory/Chest: chest wall non-tender, lungs clear, normal breath sounds Abdomen: normal bowel sounds, non tender, soft Extremities: normal inspection Edema: no edema noted Arm (L), no edema noted Arm (R), no edema noted Leg (L), no edema noted Leg (R), no edema noted Pedal (L), no edema noted Pedal (R), no edema noted Generalized Neurologic: responsive, motor weakness Skin: normal pigmentation, warm/dry Rolando Albright DO Oct 21, 2018 13:33
[2018-10-21 16:18] VITALS: BP 75/45
[2018-10-21 20:00] VITALS: BP 94/56
[2018-10-22] VITALS: BP 74/48
[2018-10-22 04:00] VITALS: BP 83/53
[2018-10-22] MEDS: NovoLOG Insulin Flexpen SUBQ SCH ×4 (06:00→20:59)
[2018-10-22 08:00] VITALS: BP 88/49
[2018-10-22] MEDS: Heparin 5000 units/ml inj SUBQ SCH ×2 (09:07→20:59)
--- NOTE | 2018-10-22 11:26 | General Progress Note ---
Assessment/Plan Problem List: (1) Failure to thrive SNOMED: 60025164 (2) Anemia ICD Codes: D64.9 - Anemia, unspecified SNOMED: 614809390 (3) Episode of generalized weakness ICD Codes: R53.1 - Weakness SNOMED: 10127182 (4) Diabetes mellitus ICD Codes: E11.9 - Type 2 diabetes mellitus without complications SNOMED: 52628665 (5) History of CVA (cerebrovascular accident) ICD Codes: Z86.73 - Personal history of transient ischemic attack (TIA), and cerebral infarction without residual deficits SNOMED: 490448513 (6) Protein-calorie malnutrition, severe ICD Codes: E43 - Unspecified severe protein-calorie malnutrition SNOMED: 081934790 Status: stable, progressing Assessment/Plan ot pt diet cbc bmp am neuro eval dc w hh if clear Subjective Constitutional: Reports: weakness Allergies: Coded Allergies: No Known Allergies (Unverified , 05/06/18) All Systems: reviewed and negative except above Subjective sleepy calm Objective Last 24 Hour Vital Signs Date Time Temp Pulse Resp B/P (MAP) Pulse Ox O2 Delivery O2 Flow Rate FiO2 10/22/18 08:00 97.8 71 18 88/49 (62) 96 10/22/18 04:00 97.5 80 16 83/53 (63) 97 10/22/18 00:00 97.3 74 16 74/48 (57) 98 10/21/18 21:00 Room Air 10/21/18 20:00 97.6 80 16 94/56 (69) 100 10/21/18 16:18 97.8 79 16 75/45 (55) 98 10/21/18 12:48 97.4 92 18 81/54 (63) 98 Intake and Output 10/21/18 10/22/18 19:00 07:00 Intake Total 1430 ml 240 ml Balance 1430 ml 240 ml Intake Oral 240 ml Other 1430 ml # Voids 2 Height (Feet): 5 Height (Inches): 11.00 Weight (Pounds): 123 General Appearance: lethargic EENT: normal ENT inspection Neck: normal alignment Cardiovascular: normal peripheral pulses, normal rate, regular rhythm Respiratory/Chest: chest wall non-tender, lungs clear, normal breath sounds Abdomen: normal bowel sounds, non tender, soft Extremities: normal inspection Edema: no edema noted Arm (L), no edema noted Arm (R), no edema noted Leg (L), no edema noted Leg (R), no edema noted Pedal (L), no edema noted Pedal (R), no edema noted Generalized Neurologic: motor weakness Skin: normal pigmentation, warm/dry Rolando Albright DO Oct 22, 2018 11:26
--- NOTE | 2018-10-22 11:37 | GI Progress Note ---
Assessment/Plan Problems: (1) History of CVA (cerebrovascular accident) ICD Codes: Z86.73 - Personal history of transient ischemic attack (TIA), and cerebral infarction without residual deficits SNOMED: 712749782 (2) Severe malnutrition ICD Codes: E43 - Unspecified severe protein-calorie malnutrition SNOMED: 11995913 (3) Dysphagia ICD Codes: R13.10 - Dysphagia, unspecified SNOMED: 88629014, 410234798 (4) Anemia ICD Codes: D64.9 - Anemia, unspecified SNOMED: 964593934 (5) Failure to thrive SNOMED: 92454027 (6) Protein-calorie malnutrition, severe ICD Codes: E43 - Unspecified severe protein-calorie malnutrition SNOMED: 844479328 Status: stable Status Narrative Discussed with Dr. Wilson. Assessment/Plan s/p CVA ST evaluation noted >> cont current diet calorie count >> nutrition needs met okay for DC per GI standpoint supportive care at this time push PO OB stool r/o GI bleed not collected monitor H&H, prn transfusions bowel regime >> colace daily ppi fu labs marinol needs outpatient referral for lock jaw The patient was seen and examined at bedside and all new and available data was reviewed in the patients chart. I agree with the above findings, impression and plan. (Patient seen earlier today. Signature stamp does not reflect patient encounter time.). - Kp Wilson MD Subjective Subjective tolerating diet No nausea or vomiting refusing AM lab draws Objective Last 24 Hour Vital Signs Date Time Temp Pulse Resp B/P (MAP) Pulse Ox O2 Delivery O2 Flow Rate FiO2 10/22/18 08:00 97.8 71 18 88/49 (62) 96 10/22/18 04:00 97.5 80 16 83/53 (63) 97 10/22/18 00:00 97.3 74 16 74/48 (57) 98 10/21/18 21:00 Room Air 10/21/18 20:00 97.6 80 16 94/56 (69) 100 10/21/18 16:18 97.8 79 16 75/45 (55) 98 10/21/18 12:48 97.4 92 18 81/54 (63) 98 Intake and Output 10/21/18 10/22/18 19:00 07:00 Intake Total 1430 ml 240 ml Balance 1430 ml 240 ml Intake Oral 240 ml Other 1430 ml # Voids 2 Height (Feet): 5 Height (Inches): 11.00 Weight (Pounds): 123 General Appearance: WD/WN, no apparent distress, alert, thin Cardiovascular: normal rate Respiratory/Chest: normal breath sounds, no respiratory distress Abdominal Exam: normal bowel sounds, non tender, soft Extremities: normal range of motion, non-tender Miguel Guerrero NP Oct 22, 2018 11:37
[2018-10-22 12:00] VITALS: BP 106/58
--- NOTE | 2018-10-22 13:50 | General Progress Note ---
Assessment/Plan Status: stable Assessment/Plan # Anemia of chronic disease -- rule out gi bleed, unknown trend of h/h given refused blood draws --> anemia panel has been ordered in the past (REFUSED) --> hgb goal >7, transfuse prn --> gi service has been consulted --> iron iv as indicated --> eval for hemolysis --> CONTINUES REFUSING LABS # Thrombocytosis - likely related to reactive process (and/or underlying infection) --> Continue to monitor for improvement --> Trend CBC as needed --> If continues to be elevated, consider to send for ELIZABETH-2 --> Smear reviewed and no abnormalities noted. *Under manual differential* --> REFUSING LABS # FTT with Severe malnutrition --> could also be related to anemia --> calory count daily as required --> consider nutrition eval and hydration --> consider use of appetite stimulants --> oral surgeon eval for lock jaw # Dysphagia --> may need peg --> appreciate gi recs --> oral surgeon eval for lock jaw op # Episode of generalized weakness # Hyperproteneimia --> spep and upep have been ordered - pending # s/p CVA # Resp symptoms --> has been refusing tamiflu Appreciate consultation greatly! Subjective Date patient seen: Oct 22, 2018 Hematologic/Lymphatic: Reports: anemia Allergies: Coded Allergies: No Known Allergies (Unverified , 05/06/18) All Systems: reviewed and negative except above Subjective Pt awake and alert. No acute events. Pt tolerating diet. Pt continues to refuse lab draws. Objective Last 24 Hour Vital Signs Date Time Temp Pulse Resp B/P (MAP) Pulse Ox O2 Delivery O2 Flow Rate FiO2 10/22/18 12:00 98.1 54 19 106/58 (74) 97 10/22/18 09:00 Room Air 10/22/18 08:00 97.8 71 18 88/49 (62) 96 10/22/18 04:00 97.5 80 16 83/53 (63) 97 10/22/18 00:00 97.3 74 16 74/48 (57) 98 10/21/18 21:00 Room Air 10/21/18 20:00 97.6 80 16 94/56 (69) 100 10/21/18 16:18 97.8 79 16 75/45 (55) 98 Intake and Output 10/21/18 10/22/18 19:00 07:00 Intake Total 1430 ml 240 ml Balance 1430 ml 240 ml Intake Oral 240 ml Other 1430 ml # Voids 2 Height (Feet): 5 Height (Inches): 11.00 Weight (Pounds): 123 Objective General Appearance: well appearing, no apparent distress, alert, thin Head: normocephalic EENT: PERRL/EOMI, nml ENT inspection Neck: supple Respiratory: normal breath sounds, no respiratory distress Cardiovascular: normal rate Gl: normal inspection, non tender, soft, normal bowel sounds, nd Musculoskeletal: normal inspection, back normal Neurologic: normal inspection, alert, oriented x3, is responsive Skin: normal inspection, normal color, no rash, warm/dry Lymphatic: normal inspection, no adenopathy Jaleel Maravilla MD Oct 22, 2018 13:50
--- NOTE | 2018-10-22 15:35 | Infectious Diseases Prog Note ---
Assessment/Plan Assessment/Plan Assessment: Sepsis, SP- ?unclear source- r/o bacteremia. endocarditis, acute hIV -CXR: no acute disease -influenza sc neg -u.a neg Fever, Sp -2d Echo: no vegetations seen No leukocytosis FTT CVA MDD/Anxiety Anemia COPD DM2 Plan: -Continue to monitor off abx -10/19 SP empiric PO Linezolid and levaquin abx d# 7 -10/17 SP Tamiflu #5 -/ SP Vanco and Cefepime #2 -10/13 SP Levaquin x1 -If recurrent fevers, will obtain CT H/C/A/P w/ to evaluate for source of fever. -Ok for discharge from ID stand point -Monitor CBC/CMP, temperatures -aspiration precautions Subjective Allergies: Coded Allergies: No Known Allergies (Unverified , 05/06/18) Subjective afebrile off abx now Objective Vital Signs Last 24 Hour Vital Signs Date Time Temp Pulse Resp B/P (MAP) Pulse Ox O2 Delivery O2 Flow Rate FiO2 10/22/18 12:00 98.1 54 19 106/58 (74) 97 10/22/18 09:00 Room Air 10/22/18 08:00 97.8 71 18 88/49 (62) 96 10/22/18 04:00 97.5 80 16 83/53 (63) 97 10/22/18 00:00 97.3 74 16 74/48 (57) 98 10/21/18 21:00 Room Air 10/21/18 20:00 97.6 80 16 94/56 (69) 100 10/21/18 16:18 97.8 79 16 75/45 (55) 98 Height (Feet): 5 Height (Inches): 11.00 Weight (Pounds): 123 Objective GENERAL: Calm in bed, oriented x2, HEENT: Jaw opens about 30% only, slight pain with movement. CARDIOVASCULAR: No murmur. LUNGS: Distant and clear. ABDOMEN: Bowel sounds positive. Nontender. Nondistended. EXTREMITIES: No cyanosis, clubbing, or edema. NEUROLOGIC: The patient moves all extremities, slightly weak. Current Medications Medications (Trade) Dose Ordered Sig/Tresa Route PRN Reason Start Time Stop Time Status Last Admin Dose Admin Acetaminophen (Tylenol) 650 mg Q4H PRN ORAL fever 10/10/18 21:30 11/09/18 21:29 10/14/18 03:09 Acetaminophen (Tylenol) 650 mg Q4H PRN ORAL Mild Pain (Pain Scale 1-3) 10/13/18 15:15 11/12/18 15:14 10/13/18 15:48 Al Hydroxide/Mg Hydroxide (Mylanta II) 30 ml Q6H PRN ORAL dyspepsia 10/10/18 21:30 11/09/18 21:29 Dextrose (Dextrose 50%) 25 ml Q30M PRN IV Hypoglycemia 10/10/18 21:30 11/09/18 21:29 Dextrose (Dextrose 50%) 50 ml Q30M PRN IV Hypoglycemia 10/10/18 21:30 11/09/18 21:29 Heparin Sodium (Porcine) (Heparin 5000 units/ml) 5,000 units EVERY 12 HOURS SUBQ 10/11/18 09:00 11/10/18 08:59 10/22/18 09:07 Hydrocortisone (Hydrocortisone) 1 applic Q6H PRN TOPIC Itching 10/14/18 11:00 11/13/18 10:59 Insulin Aspart (NovoLOG) BEFORE MEALS AND HS SUBQ 10/11/18 06:30 11/10/18 06:29 Ondansetron HCl (Zofran) 4 mg Q6H PRN IVP Nausea & Vomiting 10/10/18 21:30 11/09/18 21:29 Polyethylene Glycol (Miralax) 17 gm HSPRN PRN ORAL Constipation 10/10/18 21:30 11/09/18 21:29 Risperidone (RisperDAL) 1 mg BID ORAL 10/11/18 09:00 11/10/18 08:59 10/22/18 09:06 Ally Horowitz M.D. Oct 22, 2018 15:35
[2018-10-22 16:00] VITALS: BP 85/53
[2018-10-22 20:00] VITALS: BP 82/53
[2018-10-23 04:00] VITALS: BP 81/53
[2018-10-23] MEDS: NovoLOG Insulin Flexpen SUBQ SCH ×4 (05:53→20:41)
[2018-10-23 08:00] VITALS: BP 94/80
--- NOTE | 2018-10-23 08:12 | Infectious Diseases Prog Note ---
Assessment/Plan Assessment/Plan Sepsis, SP- ?unclear source- r/o bacteremia. endocarditis, acute hIV -CXR: no acute disease -influenza sc neg -u.a neg Fever, Sp -2d Echo: no vegetations seen No leukocytosis FTT CVA MDD/Anxiety Anemia COPD DM2 Plan: -Continue to monitor off abx as clinically stable -10/19 SP empiric PO Linezolid and levaquin abx d# 7 -10/17 SP Tamiflu #5 -10/14 SP Vanco and Cefepime #2 -10/13 SP Levaquin x1 -If recurrent fevers, will obtain CT H/C/A/P w/ to evaluate for source of fever. -Ok for discharge from ID stand point -Monitor CBC/CMP, temperatures -aspiration precautions Subjective Allergies: Coded Allergies: No Known Allergies (Unverified , 05/06/18) Subjective Patient satting well on RA Afebrile Objective Vital Signs Last 24 Hour Vital Signs Date Time Temp Pulse Resp B/P (MAP) Pulse Ox O2 Delivery O2 Flow Rate FiO2 10/23/18 04:00 97.4 78 19 81/53 (62) 97 10/22/18 21:00 Room Air 10/22/18 20:00 97.6 80 18 82/53 (63) 97 10/22/18 16:00 97.8 78 20 85/53 (64) 99 10/22/18 12:00 98.1 54 19 106/58 (74) 97 10/22/18 09:00 Room Air Height (Feet): 5 Height (Inches): 11.00 Weight (Pounds): 123 Objective GENERAL: Oriented x2, NAD HEENT: Jaw opens about 30% only, pain with movement. CARDIOVASCULAR: No murmur. RRR LUNGS: Distant and clear. ABDOMEN: Bowel sounds positive. Nontender. Nondistended. EXTREMITIES: No cyanosis, clubbing, or edema. NEUROLOGIC: The patient moves all extremities, slightly weak. Current Medications Medications (Trade) Dose Ordered Sig/Tresa Route PRN Reason Start Time Stop Time Status Last Admin Dose Admin Acetaminophen (Tylenol) 650 mg Q4H PRN ORAL fever 10/10/18 21:30 11/09/18 21:29 10/14/18 03:09 Acetaminophen (Tylenol) 650 mg Q4H PRN ORAL Mild Pain (Pain Scale 1-3) 10/13/18 15:15 11/12/18 15:14 10/13/18 15:48 Al Hydroxide/Mg Hydroxide (Mylanta II) 30 ml Q6H PRN ORAL dyspepsia 10/10/18 21:30 11/09/18 21:29 Dextrose (Dextrose 50%) 25 ml Q30M PRN IV Hypoglycemia 10/10/18 21:30 11/09/18 21:29 Dextrose (Dextrose 50%) 50 ml Q30M PRN IV Hypoglycemia 10/10/18 21:30 11/09/18 21:29 Heparin Sodium (Porcine) (Heparin 5000 units/ml) 5,000 units EVERY 12 HOURS SUBQ 10/11/18 09:00 11/10/18 08:59 10/22/18 09:07 Hydrocortisone (Hydrocortisone) 1 applic Q6H PRN TOPIC Itching 10/14/18 11:00 11/13/18 10:59 Insulin Aspart (NovoLOG) BEFORE MEALS AND HS SUBQ 10/11/18 06:30 11/10/18 06:29 Ondansetron HCl (Zofran) 4 mg Q6H PRN IVP Nausea & Vomiting 10/10/18 21:30 11/09/18 21:29 Polyethylene Glycol (Miralax) 17 gm HSPRN PRN ORAL Constipation 10/10/18 21:30 11/09/18 21:29 Risperidone (RisperDAL) 1 mg BID ORAL 10/11/18 09:00 11/10/18 08:59 10/22/18 18:17 Kike Pineda MD Oct 23, 2018 08:12
[2018-10-23] MEDS ORDERED: Guaifenesin/DM 10ml syrup ORAL PRN (09:00)
--- NOTE | 2018-10-23 09:02 | General Progress Note ---
Assessment/Plan Problem List: (1) Failure to thrive SNOMED: 52864209 (2) Anemia ICD Codes: D64.9 - Anemia, unspecified SNOMED: 734593882 (3) Episode of generalized weakness ICD Codes: R53.1 - Weakness SNOMED: 42658142 (4) Diabetes mellitus ICD Codes: E11.9 - Type 2 diabetes mellitus without complications SNOMED: 82062594 (5) History of CVA (cerebrovascular accident) ICD Codes: Z86.73 - Personal history of transient ischemic attack (TIA), and cerebral infarction without residual deficits SNOMED: 955338445 (6) Protein-calorie malnutrition, severe ICD Codes: E43 - Unspecified severe protein-calorie malnutrition SNOMED: 693467872 Status: stable, progressing Assessment/Plan ot pt diet cbc bmp am neuro eval dc w hh if clear Subjective Allergies: Coded Allergies: No Known Allergies (Unverified , 05/06/18) All Systems: reviewed and negative except above Subjective sleepy calm Objective Last 24 Hour Vital Signs Date Time Temp Pulse Resp B/P (MAP) Pulse Ox O2 Delivery O2 Flow Rate FiO2 10/23/18 04:00 97.4 78 19 81/53 (62) 97 10/22/18 21:00 Room Air 10/22/18 20:00 97.6 80 18 82/53 (63) 97 10/22/18 16:00 97.8 78 20 85/53 (64) 99 10/22/18 12:00 98.1 54 19 106/58 (74) 97 Intake and Output 10/22/18 10/23/18 18:59 06:59 Intake Total 1020 ml 1010 ml Output Total 450 ml 1325 ml Balance 570 ml -315 ml Intake Oral 1020 ml 320 ml Other 690 ml Output Urine Total 450 ml 1325 ml # Voids 1 1 # Bowel Movements 1 Height (Feet): 5 Height (Inches): 11.00 Weight (Pounds): 123 General Appearance: lethargic EENT: normal ENT inspection Neck: normal alignment Cardiovascular: normal peripheral pulses, normal rate, regular rhythm Respiratory/Chest: chest wall non-tender, lungs clear, normal breath sounds Abdomen: normal bowel sounds, non tender, soft Extremities: normal inspection Edema: no edema noted Arm (L), no edema noted Arm (R), no edema noted Leg (L), no edema noted Leg (R), no edema noted Pedal (L), no edema noted Pedal (R), no edema noted Generalized Neurologic: responsive, motor weakness Skin: normal pigmentation, warm/dry Rolando Albright DO Oct 23, 2018 09:02
[2018-10-23] MEDS: Heparin 5000 units/ml inj SUBQ SCH ×2 (09:06→20:41)
[2018-10-23 12:00] VITALS: BP 86/54
[2018-10-23 16:00] VITALS: BP 102/58
[2018-10-23 20:00] VITALS: BP 95/58
[2018-10-24] MEDS: NovoLOG Insulin Flexpen SUBQ SCH ×4 (06:30→20:57)
[2018-10-24 08:00] VITALS: BP 88/47
[2018-10-24] MEDS: Heparin 5000 units/ml inj SUBQ SCH ×2 (08:42→20:56)
--- NOTE | 2018-10-24 08:56 | General Progress Note ---
Assessment/Plan Problem List: (1) Failure to thrive SNOMED: 51204904 (2) Anemia ICD Codes: D64.9 - Anemia, unspecified SNOMED: 762324575 (3) Episode of generalized weakness ICD Codes: R53.1 - Weakness SNOMED: 29620186 (4) Diabetes mellitus ICD Codes: E11.9 - Type 2 diabetes mellitus without complications SNOMED: 13738990 (5) History of CVA (cerebrovascular accident) ICD Codes: Z86.73 - Personal history of transient ischemic attack (TIA), and cerebral infarction without residual deficits SNOMED: 601786903 (6) Protein-calorie malnutrition, severe ICD Codes: E43 - Unspecified severe protein-calorie malnutrition SNOMED: 759170414 Status: stable, progressing Assessment/Plan ot pt diet cbc bmp am neuro eval dc w hh if clear Subjective Constitutional: Reports: weakness Allergies: Coded Allergies: No Known Allergies (Unverified , 05/06/18) All Systems: reviewed and negative except above Subjective sleepy calm Objective Last 24 Hour Vital Signs Date Time Temp Pulse Resp B/P (MAP) Pulse Ox O2 Delivery O2 Flow Rate FiO2 10/23/18 21:00 Room Air 10/23/18 20:00 97.8 72 19 95/58 (70) 98 10/23/18 16:00 97.1 76 19 102/58 (73) 98 10/23/18 12:00 97.8 76 18 86/54 (65) 98 10/23/18 09:00 Room Air Intake and Output 10/23/18 10/24/18 19:00 07:00 Intake Total 500 ml Balance 500 ml Intake Oral 500 ml # Voids 2 Height (Feet): 5 Height (Inches): 11.00 Weight (Pounds): 123 General Appearance: lethargic EENT: normal ENT inspection Neck: normal alignment Cardiovascular: normal peripheral pulses, normal rate, regular rhythm Respiratory/Chest: chest wall non-tender, lungs clear, normal breath sounds Abdomen: normal bowel sounds, non tender, soft Extremities: normal inspection Edema: no edema noted Arm (L), no edema noted Arm (R), no edema noted Leg (L), no edema noted Leg (R), no edema noted Pedal (L), no edema noted Pedal (R), no edema noted Generalized Neurologic: motor weakness Skin: normal pigmentation, warm/dry Albright,Rolando Chi-Marcia DO Oct 24, 2018 08:56
--- NOTE | 2018-10-24 09:22 | General Progress Note ---
Assessment/Plan Assessment/Plan # Anemia of chronic disease - rule out gi bleed, unknown trend of h/h given refused blood draws --> anemia panel has been ordered in the past (REFUSED) --> hgb goal >7, transfuse prn --> gi service has been consulted --> iron iv as indicated --> eval for hemolysis # Thrombocytosis - likely related to reactive process (and/or underlying infection) --> Continue to monitor for improvement --> Trend CBC as needed --> If continues to be elevated, consider to send for ELIZABETH-2 --> Smear reviewed and no abnormalities noted. *Under manual differential* # FTT with Severe malnutrition --> could also be related to anemia --> calory count daily as required --> consider nutrition eval and hydration --> consider use of appetite stimulants --> oral surgeon eval for lock jaw # Dysphagia --> may need peg --> appreciate gi recs --> oral surgeon eval for lock jaw op # Episode of generalized weakness # Hyperproteneimia --> spep and upep have been ordered - pending # s/p CVA # Resp symptoms --> has been refusing tamiflu Appreciate consultation greatly! Subjective Constitutional: Denies: no symptoms, chills, diaphoresis, fever, malaise, weakness, other Cardiovascular: Denies: no symptoms, chest pain, edema, irregular heart rate, lightheadedness, palpitations, syncope, other Respiratory: Denies: no symptoms, cough, orthopnea, shortness of breath, SOB with excertion, SOB at rest, sputum, stridor, wheezing, other Gastrointestinal/Abdominal: Denies: no symptoms, abdomen distended, abdominal pain, black stools, tarry stools, blood in stool, constipated, diarrhea, difficulty swallowing, nausea, poor appetite, poor fluid intake, rectal bleeding , vomiting, other Endocrine: Denies: no symptoms, excessive sweating, flushing, intolerance to cold, intolerance to heat, increased hunger, increased thirst, increased urine, unexplained weight gain, unexplained weight loss, other Hematologic/Lymphatic: Denies: no symptoms, anemia, easy bleeding, easy bruising, other Allergies: Coded Allergies: No Known Allergies (Unverified , 05/06/18) Subjective Pt awake and alert. No acute events. Pt tolerating diet. Pt continues to refuse lab draws. Less pain this am. Objective Last 24 Hour Vital Signs Date Time Temp Pulse Resp B/P (MAP) Pulse Ox O2 Delivery O2 Flow Rate FiO2 10/23/18 21:00 Room Air 10/23/18 20:00 97.8 72 19 95/58 (70) 98 10/23/18 16:00 97.1 76 19 102/58 (73) 98 10/23/18 12:00 97.8 76 18 86/54 (65) 98 Intake and Output 10/23/18 10/24/18 19:00 07:00 Intake Total 500 ml Balance 500 ml Intake Oral 500 ml # Voids 2 Height (Feet): 5 Height (Inches): 11.00 Weight (Pounds): 123 Objective General Appearance: well appearing, no apparent distress, alert, thin Head: normocephalic EENT: PERRL/EOMI, nml ENT inspection Neck: supple Respiratory: normal breath sounds, no respiratory distress Cardiovascular: normal rate Gl: normal inspection, non tender, soft, normal bowel sounds, nd Musculoskeletal: normal inspection, back normal Neurologic: normal inspection, alert, oriented x3, is responsive Skin: normal inspection, normal color, no rash, warm/dry Lymphatic: normal inspection, no swelling Jaleel Maravilla MD Oct 24, 2018 09:22
[2018-10-24 12:00] VITALS: BP 84/49
[2018-10-24 16:00] VITALS: BP 90/59
[2018-10-24 20:00] VITALS: BP 93/61
[2018-10-25] MEDS: NovoLOG Insulin Flexpen SUBQ SCH ×4 (06:05→20:55)
[2018-10-25 08:00] VITALS: BP 90/53
[2018-10-25] MEDS: Heparin 5000 units/ml inj SUBQ SCH ×2 (09:40→20:55)
--- NOTE | 2018-10-25 10:47 | GI Progress Note ---
Assessment/Plan Problems: (1) History of CVA (cerebrovascular accident) ICD Codes: Z86.73 - Personal history of transient ischemic attack (TIA), and cerebral infarction without residual deficits SNOMED: 226565741 (2) Severe malnutrition ICD Codes: E43 - Unspecified severe protein-calorie malnutrition SNOMED: 00116180 (3) Dysphagia ICD Codes: R13.10 - Dysphagia, unspecified SNOMED: 51602694, 139424335 (4) Anemia ICD Codes: D64.9 - Anemia, unspecified SNOMED: 090485247 (5) Failure to thrive SNOMED: 71867313 (6) Protein-calorie malnutrition, severe ICD Codes: E43 - Unspecified severe protein-calorie malnutrition SNOMED: 582585905 Status: stable Status Narrative Discussed with Dr. Wilson. Assessment/Plan s/p CVA ST evaluation noted >> cont current diet calorie count >> nutrition needs met okay for DC per GI standpoint supportive care at this time push PO OB stool r/o GI bleed not collected monitor H&H, prn transfusions bowel regime >> colace daily ppi fu labs marinol needs outpatient referral for lock jaw The patient was seen and examined at bedside and all new and available data was reviewed in the patients chart. I agree with the above findings, impression and plan. (Patient seen earlier today. Signature stamp does not reflect patient encounter time.). - Kp Wilson MD Subjective Subjective tolerating diet No nausea or vomiting refusing AM lab draws Objective Last 24 Hour Vital Signs Date Time Temp Pulse Resp B/P (MAP) Pulse Ox O2 Delivery O2 Flow Rate FiO2 10/25/18 09:00 Room Air 10/25/18 08:00 97.2 95 19 90/53 (65) 98 10/24/18 21:00 Room Air 10/24/18 20:00 97.5 87 20 93/61 (72) 97 10/24/18 16:00 98.0 75 18 90/59 (69) 98 10/24/18 12:00 98.3 84 18 84/49 (61) 99 Intake and Output 10/24/18 10/25/18 19:00 07:00 Intake Total 850 ml Output Total 1000 ml 800 ml Balance -150 ml -800 ml Intake Oral 850 ml Output Urine Total 1000 ml 800 ml Height (Feet): 5 Height (Inches): 11.00 Weight (Pounds): 123 General Appearance: WD/WN, no apparent distress, alert, thin Cardiovascular: normal rate Respiratory/Chest: normal breath sounds, no respiratory distress Abdominal Exam: normal bowel sounds, non tender, soft Extremities: non-tender Miguel Guerrero NP Oct 25, 2018 10:47
[2018-10-25 12:00] VITALS: BP 74/43
--- NOTE | 2018-10-25 12:05 | Infectious Diseases Prog Note ---
Assessment/Plan Assessment/Plan Assessment/Plan Sepsis, SP- ?unclear source- r/o bacteremia. endocarditis, acute hIV -CXR: no acute disease -influenza sc neg -u.a neg Fever, Sp -2d Echo: no vegetations seen No leukocytosis FTT CVA MDD/Anxiety Anemia COPD DM2 Plan: -Continue to monitor off abx as clinically stable -10/19 SP empiric PO Linezolid and levaquin abx d# 7 -10/17 SP Tamiflu #5 -10/14 SP Vanco and Cefepime #2 -10/13 SP Levaquin x1 -If recurrent fevers, will obtain CT H/C/A/P w/ to evaluate for source of fever. -Ok for discharge from ID stand point -Monitor CBC/CMP, temperatures -aspiration precautions Subjective Allergies: Coded Allergies: No Known Allergies (Unverified , 05/06/18) Subjective afebrile off abx Objective Vital Signs Last 24 Hour Vital Signs Date Time Temp Pulse Resp B/P (MAP) Pulse Ox O2 Delivery O2 Flow Rate FiO2 10/25/18 09:00 Room Air 10/25/18 08:00 97.2 95 19 90/53 (65) 98 10/24/18 21:00 Room Air 10/24/18 20:00 97.5 87 20 93/61 (72) 97 10/24/18 16:00 98.0 75 18 90/59 (69) 98 Height (Feet): 5 Height (Inches): 11.00 Weight (Pounds): 123 Objective GENERAL: Calm in bed, oriented x2, HEENT: Jaw opens about 30% only, slight pain with movement. CARDIOVASCULAR: No murmur. LUNGS: Distant and clear. ABDOMEN: Bowel sounds positive. Nontender. Nondistended. EXTREMITIES: No cyanosis, clubbing, or edema. NEUROLOGIC: The patient moves all extremities, slightly weak. Current Medications Medications (Trade) Dose Ordered Sig/Tresa Route PRN Reason Start Time Stop Time Status Last Admin Dose Admin Acetaminophen (Tylenol) 650 mg Q4H PRN ORAL fever 10/10/18 21:30 11/09/18 21:29 10/14/18 03:09 Acetaminophen (Tylenol) 650 mg Q4H PRN ORAL Mild Pain (Pain Scale 1-3) 10/13/18 15:15 11/12/18 15:14 10/13/18 15:48 Al Hydroxide/Mg Hydroxide (Mylanta II) 30 ml Q6H PRN ORAL dyspepsia 10/10/18 21:30 11/09/18 21:29 Dextrose (Dextrose 50%) 25 ml Q30M PRN IV Hypoglycemia 10/10/18 21:30 11/09/18 21:29 Dextrose (Dextrose 50%) 50 ml Q30M PRN IV Hypoglycemia 10/10/18 21:30 11/09/18 21:29 Guaifenesin/ Dextromethorphan (Robitussin DM Syrup) 10 ml Q4H PRN ORAL For Cough 10/23/18 09:00 11/22/18 08:59 10/23/18 09:04 Heparin Sodium (Porcine) (Heparin 5000 units/ml) 5,000 units EVERY 12 HOURS SUBQ 10/11/18 09:00 11/10/18 08:59 10/25/18 09:40 Hydrocortisone (Hydrocortisone) 1 applic Q6H PRN TOPIC Itching 10/14/18 11:00 11/13/18 10:59 Insulin Aspart (NovoLOG) BEFORE MEALS AND HS SUBQ 10/11/18 06:30 11/10/18 06:29 Ondansetron HCl (Zofran) 4 mg Q6H PRN IVP Nausea & Vomiting 10/10/18 21:30 11/09/18 21:29 Polyethylene Glycol (Miralax) 17 gm HSPRN PRN ORAL Constipation 10/10/18 21:30 11/09/18 21:29 Risperidone (RisperDAL) 1 mg BID ORAL 10/11/18 09:00 11/10/18 08:59 10/25/18 09:38 Ally Horowitz M.D. Oct 25, 2018 12:05
--- NOTE | 2018-10-25 14:46 | General Progress Note ---
Assessment/Plan Problem List: (1) Failure to thrive SNOMED: 79760926 (2) Anemia ICD Codes: D64.9 - Anemia, unspecified SNOMED: 371698377 (3) Episode of generalized weakness ICD Codes: R53.1 - Weakness SNOMED: 74597219 (4) Diabetes mellitus ICD Codes: E11.9 - Type 2 diabetes mellitus without complications SNOMED: 70720538 (5) History of CVA (cerebrovascular accident) ICD Codes: Z86.73 - Personal history of transient ischemic attack (TIA), and cerebral infarction without residual deficits SNOMED: 453661580 (6) Protein-calorie malnutrition, severe ICD Codes: E43 - Unspecified severe protein-calorie malnutrition SNOMED: 829555920 Status: stable, progressing Assessment/Plan ot pt diet cbc bmp am neuro eval dc w hh if clear Subjective Constitutional: Reports: weakness Allergies: Coded Allergies: No Known Allergies (Unverified , 05/06/18) All Systems: reviewed and negative except above Subjective sleepy calm Objective Last 24 Hour Vital Signs Date Time Temp Pulse Resp B/P (MAP) Pulse Ox O2 Delivery O2 Flow Rate FiO2 10/25/18 12:00 97.6 80 18 74/43 (53) 98 10/25/18 09:00 Room Air 10/25/18 08:00 97.2 95 19 90/53 (65) 98 10/24/18 21:00 Room Air 10/24/18 20:00 97.5 87 20 93/61 (72) 97 10/24/18 16:00 98.0 75 18 90/59 (69) 98 Intake and Output 10/24/18 10/25/18 18:59 06:59 Intake Total 850 ml Output Total 1000 ml 800 ml Balance -150 ml -800 ml Intake Oral 850 ml Output Urine Total 1000 ml 800 ml Height (Feet): 5 Height (Inches): 11.00 Weight (Pounds): 123 General Appearance: lethargic EENT: normal ENT inspection Neck: normal alignment Cardiovascular: normal peripheral pulses, normal rate, regular rhythm Respiratory/Chest: chest wall non-tender, lungs clear, normal breath sounds Abdomen: normal bowel sounds, non tender, soft Extremities: normal inspection Edema: no edema noted Arm (L), no edema noted Arm (R), no edema noted Leg (L), no edema noted Leg (R), no edema noted Pedal (L), no edema noted Pedal (R), no edema noted Generalized Neurologic: motor weakness Skin: normal pigmentation, warm/dry Rolando Albright DO Oct 25, 2018 14:46
[2018-10-25 16:00] VITALS: BP 83/50
--- NOTE | 2018-10-25 18:05 | General Progress Note ---
Assessment/Plan Assessment/Plan # Anemia of chronic disease - rule out gi bleed, unknown trend of h/h given refused blood draws --> anemia panel has been ordered in the past (REFUSED) --> hgb goal >7, transfuse prn --> gi service has been consulted --> iron iv as indicated --> eval for hemolysis # Thrombocytosis - likely related to reactive process (and/or underlying infection) --> Continue to monitor for improvement --> Trend CBC as needed --> Smear reviewed and no abnormalities noted. *Under manual differential* # FTT with Severe malnutrition --> could also be related to anemia --> calory count daily as required --> consider nutrition eval and hydration --> consider use of appetite stimulants --> oral surgeon eval for lock jaw op eval # Dysphagia --> may need peg --> appreciate gi recs --> oral surgeon eval for lock jaw op # Episode of generalized weakness # Hyperproteneimia --> spep and upep have been ordered - pending # s/p CVA # Resp symptoms better now --> has been refusing tamiflu Appreciate consultation greatly! Subjective Constitutional: Denies: no symptoms, chills, diaphoresis, fever, malaise, weakness, other HEENT: Denies: no symptoms, eye pain, blurred vision, tearing, double vision, ear pain, ear discharge, nose pain, nose congestion, throat pain, throat swelling, mouth pain, mouth swelling, other Cardiovascular: Denies: no symptoms, chest pain, edema, irregular heart rate, lightheadedness, palpitations, syncope, other Respiratory: Denies: no symptoms, cough, orthopnea, shortness of breath, SOB with excertion, SOB at rest, sputum, stridor, wheezing, other Genitourinary: Denies: no symptoms, burning, discharge, frequency, flank pain, hematuria, incontinence, pain, urgency, other Neurologic/Psychiatric: Denies: no symptoms, anxiety, depressed, emotional problems, headache, numbness, paresthesia, pre-existing deficit, seizure, tingling, tremors, weakness, other Endocrine: Denies: no symptoms, excessive sweating, flushing, intolerance to cold, intolerance to heat, increased hunger, increased thirst, increased urine, unexplained weight gain, unexplained weight loss, other Hematologic/Lymphatic: Denies: no symptoms, anemia, easy bleeding, easy bruising, other Allergies: Coded Allergies: No Known Allergies (Unverified , 05/06/18) Subjective Pt awake and alert. No acute events. Pt tolerating diet. Pt continues to refuse lab draws. Objective Last 24 Hour Vital Signs Date Time Temp Pulse Resp B/P (MAP) Pulse Ox O2 Delivery O2 Flow Rate FiO2 10/25/18 16:00 97.0 84 19 83/50 (61) 96 10/25/18 12:00 97.6 80 18 74/43 (53) 98 10/25/18 09:00 Room Air 10/25/18 08:00 97.2 95 19 90/53 (65) 98 10/24/18 21:00 Room Air 10/24/18 20:00 97.5 87 20 93/61 (72) 97 Intake and Output 10/24/18 10/25/18 18:59 06:59 Intake Total 850 ml Output Total 1000 ml 800 ml Balance -150 ml -800 ml Intake Oral 850 ml Output Urine Total 1000 ml 800 ml Height (Feet): 5 Height (Inches): 11.00 Weight (Pounds): 123 General Appearance: lethargic EENT: TMs normal Neck: normal inspection Cardiovascular: regular rhythm Respiratory/Chest: normal breath sounds Abdomen: no organomegaly Extremities: non-tender Edema: 1+ Leg (L), 1+ Leg (R) Neurologic: oriented x 3 Skin: warm/dry Objective General Appearance: well appearing, no apparent distress, alert, thin Head: normocephalic EENT: PERRL/EOMI, nml ENT inspection Neck: supple Respiratory: normal breath sounds, no respiratory distress Cardiovascular: normal rate Gl: normal inspection, non tender, soft, normal bowel sounds, nd Musculoskeletal: normal inspection, back normal Neurologic: normal inspection, alert, oriented x3, is responsive Skin: normal inspection, normal color, no rash, warm/dry Lymphatic: normal inspection, no swelling Jaleel Maravilla MD Oct 25, 2018 18:05
[2018-10-25 20:00] VITALS: BP 101/62
[2018-10-26] VITALS: BP 102/65
[2018-10-26 04:00] VITALS: BP 90/64
[2018-10-26] MEDS: NovoLOG Insulin Flexpen SUBQ SCH ×4 (06:09→21:00)
[2018-10-26 08:00] VITALS: BP 84/50
[2018-10-26] MEDS: Heparin 5000 units/ml inj SUBQ SCH ×2 (09:25→21:47)
[2018-10-26 12:00] VITALS: BP 95/58
--- NOTE | 2018-10-26 12:50 | Infectious Diseases Prog Note ---
Assessment/Plan Assessment/Plan Assessment/Plan Sepsis, SP- ?unclear source- r/o bacteremia. endocarditis, acute hIV -CXR: no acute disease -influenza sc neg -u.a neg Fever, Sp -2d Echo: no vegetations seen No leukocytosis FTT CVA MDD/Anxiety Anemia COPD DM2 Plan: -Continue to monitor off abx as clinically stable -10/19 SP empiric PO Linezolid and levaquin abx d# 7 -10/17 SP Tamiflu #5 -10/14 SP Vanco and Cefepime #2 -10/13 SP Levaquin x1 -If recurrent fevers, will obtain CT H/C/A/P w/ to evaluate for source of fever. -Ok for discharge from ID stand point -Monitor CBC/CMP, temperatures -aspiration precautions Subjective Allergies: Coded Allergies: No Known Allergies (Unverified , 05/06/18) Subjective afebrile off abx Objective Vital Signs Last 24 Hour Vital Signs Date Time Temp Pulse Resp B/P (MAP) Pulse Ox O2 Delivery O2 Flow Rate FiO2 10/26/18 12:00 97.5 84 20 95/58 (70) 98 10/26/18 09:00 Room Air 10/26/18 08:00 97.7 75 19 84/50 (61) 98 10/26/18 04:00 98.2 78 20 90/64 (73) 97 10/26/18 00:00 97.2 77 20 102/65 (77) 98 10/25/18 21:00 Room Air 10/25/18 20:00 98.0 78 20 101/62 (75) 97 10/25/18 16:00 97.0 84 19 83/50 (61) 96 Height (Feet): 5 Height (Inches): 11.00 Weight (Pounds): 123 Objective GENERAL: Calm in bed, oriented x2, HEENT: Jaw opens about 30% only, slight pain with movement. CARDIOVASCULAR: No murmur. LUNGS: Distant and clear. ABDOMEN: Bowel sounds positive. Nontender. Nondistended. EXTREMITIES: No cyanosis, clubbing, or edema. NEUROLOGIC: The patient moves all extremities, slightly weak. Current Medications Medications (Trade) Dose Ordered Sig/Tresa Route PRN Reason Start Time Stop Time Status Last Admin Dose Admin Acetaminophen (Tylenol) 650 mg Q4H PRN ORAL fever 10/10/18 21:30 11/09/18 21:29 10/14/18 03:09 Acetaminophen (Tylenol) 650 mg Q4H PRN ORAL Mild Pain (Pain Scale 1-3) 10/13/18 15:15 11/12/18 15:14 10/13/18 15:48 Al Hydroxide/Mg Hydroxide (Mylanta II) 30 ml Q6H PRN ORAL dyspepsia 10/10/18 21:30 11/09/18 21:29 Dextrose (Dextrose 50%) 25 ml Q30M PRN IV Hypoglycemia 10/10/18 21:30 11/09/18 21:29 Dextrose (Dextrose 50%) 50 ml Q30M PRN IV Hypoglycemia 10/10/18 21:30 11/09/18 21:29 Guaifenesin/ Dextromethorphan (Robitussin DM Syrup) 10 ml Q4H PRN ORAL For Cough 10/23/18 09:00 11/22/18 08:59 10/23/18 09:04 Heparin Sodium (Porcine) (Heparin 5000 units/ml) 5,000 units EVERY 12 HOURS SUBQ 10/11/18 09:00 11/10/18 08:59 10/26/18 09:25 Hydrocortisone (Hydrocortisone) 1 applic Q6H PRN TOPIC Itching 10/14/18 11:00 11/13/18 10:59 Insulin Aspart (NovoLOG) BEFORE MEALS AND HS SUBQ 10/11/18 06:30 11/10/18 06:29 Ondansetron HCl (Zofran) 4 mg Q6H PRN IVP Nausea & Vomiting 10/10/18 21:30 11/09/18 21:29 Polyethylene Glycol (Miralax) 17 gm HSPRN PRN ORAL Constipation 10/10/18 21:30 11/09/18 21:29 Risperidone (RisperDAL) 1 mg BID ORAL 10/11/18 09:00 11/10/18 08:59 10/26/18 09:23 Ally Horowitz M.D. Oct 26, 2018 12:50
--- NOTE | 2018-10-26 13:41 | General Progress Note ---
Assessment/Plan Status: stable Assessment/Plan # Anemia of chronic disease - rule out gi bleed, unknown trend of h/h given refused blood draws --> anemia panel has been ordered in the past (REFUSED) --> hgb goal >7, transfuse prn --> gi service has been consulted --> iron iv as indicated --> eval for hemolysis # Thrombocytosis - likely related to reactive process (and/or underlying infection) --> Continue to monitor for improvement --> Trend CBC as needed --> Smear reviewed and no abnormalities noted. *Under manual differential* # FTT with Severe malnutrition --> could also be related to anemia --> calory count daily as required --> consider nutrition eval and hydration --> consider use of appetite stimulants --> oral surgeon eval for lock jaw op eval # Dysphagia --> may need peg --> appreciate gi recs --> oral surgeon eval for lock jaw op # Episode of generalized weakness # Hyperproteneimia --> spep and upep have been ordered - pending # s/p CVA # Resp symptoms better now --> has been refusing tamiflu Appreciate consultation greatly! Subjective Date patient seen: Oct 26, 2018 Hematologic/Lymphatic: Reports: anemia Allergies: Coded Allergies: No Known Allergies (Unverified , 05/06/18) All Systems: reviewed and negative except above Subjective Pt awake and alert. No acute events. Pt continues to refuse lab draws. Pt refusing care. Objective Last 24 Hour Vital Signs Date Time Temp Pulse Resp B/P (MAP) Pulse Ox O2 Delivery O2 Flow Rate FiO2 10/26/18 12:00 97.5 84 20 95/58 (70) 98 10/26/18 09:00 Room Air 10/26/18 08:00 97.7 75 19 84/50 (61) 98 10/26/18 04:00 98.2 78 20 90/64 (73) 97 10/26/18 00:00 97.2 77 20 102/65 (77) 98 10/25/18 21:00 Room Air 10/25/18 20:00 98.0 78 20 101/62 (75) 97 10/25/18 16:00 97.0 84 19 83/50 (61) 96 Intake and Output 10/25/18 10/26/18 19:00 07:00 Intake Total 1300 ml 780 ml Output Total 700 ml Balance 1300 ml 80 ml Intake Oral 1300 ml 780 ml Output Urine Total 700 ml # Voids 5 3 # Bowel Movements 2 Height (Feet): 5 Height (Inches): 11.00 Weight (Pounds): 123 Objective General Appearance: well appearing, no apparent distress, alert, thin Head: normocephalic EENT: PERRL/EOMI, nml ENT inspection Neck: supple Respiratory: normal breath sounds, no respiratory distress Cardiovascular: normal rate Gl: normal inspection, non tender, soft, normal bowel sounds, nd Musculoskeletal: normal inspection, back normal Neurologic: normal inspection, alert, oriented x3, is responsive Skin: normal inspection, normal color, no rash, warm/dry Lymphatic: normal inspection, no swelling Jaleel Maravilla MD Oct 26, 2018 13:41
--- NOTE | 2018-10-26 13:53 | General Progress Note ---
Assessment/Plan Problem List: (1) Failure to thrive SNOMED: 86117498 (2) Anemia ICD Codes: D64.9 - Anemia, unspecified SNOMED: 349552646 (3) Episode of generalized weakness ICD Codes: R53.1 - Weakness SNOMED: 86161066 (4) Diabetes mellitus ICD Codes: E11.9 - Type 2 diabetes mellitus without complications SNOMED: 14846737 (5) History of CVA (cerebrovascular accident) ICD Codes: Z86.73 - Personal history of transient ischemic attack (TIA), and cerebral infarction without residual deficits SNOMED: 799741300 (6) Protein-calorie malnutrition, severe ICD Codes: E43 - Unspecified severe protein-calorie malnutrition SNOMED: 631307974 Status: unchanged Assessment/Plan ot pt diet cbc bmp am neuro eval dc w hh if clear Subjective Constitutional: Reports: weakness Allergies: Coded Allergies: No Known Allergies (Unverified , 05/06/18) All Systems: reviewed and negative except above Subjective sleepy calm Objective Last 24 Hour Vital Signs Date Time Temp Pulse Resp B/P (MAP) Pulse Ox O2 Delivery O2 Flow Rate FiO2 10/26/18 12:00 97.5 84 20 95/58 (70) 98 10/26/18 09:00 Room Air 10/26/18 08:00 97.7 75 19 84/50 (61) 98 10/26/18 04:00 98.2 78 20 90/64 (73) 97 10/26/18 00:00 97.2 77 20 102/65 (77) 98 10/25/18 21:00 Room Air 10/25/18 20:00 98.0 78 20 101/62 (75) 97 10/25/18 16:00 97.0 84 19 83/50 (61) 96 Intake and Output 10/25/18 10/26/18 19:00 07:00 Intake Total 1300 ml 780 ml Output Total 700 ml Balance 1300 ml 80 ml Intake Oral 1300 ml 780 ml Output Urine Total 700 ml # Voids 5 3 # Bowel Movements 2 Height (Feet): 5 Height (Inches): 11.00 Weight (Pounds): 123 General Appearance: lethargic EENT: normal ENT inspection Neck: normal alignment Cardiovascular: normal peripheral pulses, normal rate, regular rhythm Respiratory/Chest: chest wall non-tender, lungs clear, normal breath sounds Abdomen: normal bowel sounds, non tender, soft Extremities: normal inspection Edema: no edema noted Arm (L), no edema noted Arm (R), no edema noted Leg (L), no edema noted Leg (R), no edema noted Pedal (L), no edema noted Pedal (R), no edema noted Generalized Neurologic: responsive, motor weakness Skin: normal pigmentation, warm/dry Rolando Albright DO Oct 26, 2018 13:53
--- NOTE | 2018-10-26 15:02 | GI Progress Note ---
Assessment/Plan Problems: (1) History of CVA (cerebrovascular accident) ICD Codes: Z86.73 - Personal history of transient ischemic attack (TIA), and cerebral infarction without residual deficits SNOMED: 148785177 (2) Severe malnutrition ICD Codes: E43 - Unspecified severe protein-calorie malnutrition SNOMED: 98473322 (3) Dysphagia ICD Codes: R13.10 - Dysphagia, unspecified SNOMED: 42277200, 717320348 (4) Anemia ICD Codes: D64.9 - Anemia, unspecified SNOMED: 275406883 (5) Failure to thrive SNOMED: 34638437 (6) Protein-calorie malnutrition, severe ICD Codes: E43 - Unspecified severe protein-calorie malnutrition SNOMED: 632387589 Status: stable Status Narrative Discussed with Dr. Wilson. Assessment/Plan s/p CVA ST evaluation noted >> cont current diet calorie count >> nutrition needs met okay for DC per GI standpoint supportive care at this time push PO OB stool r/o GI bleed not collected monitor H&H, prn transfusions bowel regime >> colace daily ppi fu labs marinol needs outpatient referral for lock jaw The patient was seen and examined at bedside and all new and available data was reviewed in the patients chart. I agree with the above findings, impression and plan. (Patient seen earlier today. Signature stamp does not reflect patient encounter time.). - Kp Wilson MD Subjective Subjective tolerating diet No nausea or vomiting refusing AM lab draws Objective Last 24 Hour Vital Signs Date Time Temp Pulse Resp B/P (MAP) Pulse Ox O2 Delivery O2 Flow Rate FiO2 10/26/18 12:00 97.5 84 20 95/58 (70) 98 10/26/18 09:00 Room Air 10/26/18 08:00 97.7 75 19 84/50 (61) 98 10/26/18 04:00 98.2 78 20 90/64 (73) 97 10/26/18 00:00 97.2 77 20 102/65 (77) 98 10/25/18 21:00 Room Air 10/25/18 20:00 98.0 78 20 101/62 (75) 97 10/25/18 16:00 97.0 84 19 83/50 (61) 96 Intake and Output 10/25/18 10/26/18 19:00 07:00 Intake Total 1300 ml 780 ml Output Total 700 ml Balance 1300 ml 80 ml Intake Oral 1300 ml 780 ml Output Urine Total 700 ml # Voids 5 3 # Bowel Movements 2 Height (Feet): 5 Height (Inches): 11.00 Weight (Pounds): 123 General Appearance: thin Cardiovascular: normal rate Respiratory/Chest: normal breath sounds, no respiratory distress Abdominal Exam: normal bowel sounds, non tender, soft Extremities: non-tender Miguel Guerrero NP Oct 26, 2018 15:02
[2018-10-26 16:00] VITALS: BP 92/55
[2018-10-26 20:00] VITALS: BP 92/62
[2018-10-27] VITALS: BP 100/57
[2018-10-27 04:00] VITALS: BP 93/55
[2018-10-27] MEDS: NovoLOG Insulin Flexpen SUBQ SCH ×4 (06:30→21:00)
[2018-10-27 08:00] VITALS: BP 90/54
[2018-10-27] MEDS: Heparin 5000 units/ml inj SUBQ SCH ×2 (08:23→21:23)
--- NOTE | 2018-10-27 10:58 | GI Progress Note ---
Assessment/Plan Problems: (1) History of CVA (cerebrovascular accident) ICD Codes: Z86.73 - Personal history of transient ischemic attack (TIA), and cerebral infarction without residual deficits SNOMED: 273081395 (2) Severe malnutrition ICD Codes: E43 - Unspecified severe protein-calorie malnutrition SNOMED: 87386898 (3) Dysphagia ICD Codes: R13.10 - Dysphagia, unspecified SNOMED: 56976902, 192695104 (4) Anemia ICD Codes: D64.9 - Anemia, unspecified SNOMED: 697901221 (5) Failure to thrive SNOMED: 94157492 (6) Protein-calorie malnutrition, severe ICD Codes: E43 - Unspecified severe protein-calorie malnutrition SNOMED: 772485492 Status: stable Status Narrative Discussed with Dr. Wilson Assessment/Plan s/p CVA ST evaluation noted >> cont current diet calorie count >> nutrition needs met okay for DC per GI standpoint supportive care at this time push PO OB stool r/o GI bleed not collected monitor H&H, prn transfusions bowel regime >> colace daily ppi fu labs marinol needs outpatient referral for lock jaw The patient was seen and examined at bedside and all new and available data was reviewed in the patients chart. I agree with the above findings, impression and plan. (Patient seen earlier today. Signature stamp does not reflect patient encounter time.). - Kp Wilson MD Subjective Subjective tolerating diet No nausea or vomiting refusing AM lab draws Objective Last 24 Hour Vital Signs Date Time Temp Pulse Resp B/P (MAP) Pulse Ox O2 Delivery O2 Flow Rate FiO2 10/27/18 09:00 Room Air 10/27/18 08:00 97.4 74 16 90/54 (66) 97 10/27/18 04:00 97.2 85 20 93/55 (68) 98 10/27/18 00:00 97.2 67 20 100/57 (71) 98 10/26/18 21:05 Room Air 10/26/18 20:00 97.0 78 20 92/62 (72) 98 10/26/18 16:00 98.4 85 18 92/55 (67) 98 10/26/18 12:00 97.5 84 20 95/58 (70) 98 Intake and Output 10/26/18 10/27/18 19:00 07:00 Intake Total 360 ml 600 ml Balance 360 ml 600 ml Intake Oral 360 ml 600 ml # Voids 2 3 Height (Feet): 5 Height (Inches): 11.00 Weight (Pounds): 130 General Appearance: WD/WN, no apparent distress, alert, thin Cardiovascular: normal rate Respiratory/Chest: normal breath sounds, no respiratory distress Abdominal Exam: normal bowel sounds, non tender, soft Extremities: normal range of motion, non-tender Miguel Guerrero NP Oct 27, 2018 10:58
[2018-10-27 12:00] VITALS: BP 85/54
--- NOTE | 2018-10-27 13:18 | Infectious Diseases Prog Note ---
Assessment/Plan Assessment/Plan Assessment/Plan Sepsis, SP- ?unclear source- r/o bacteremia. endocarditis, acute hIV -CXR: no acute disease -influenza sc neg -u.a neg Fever, Sp -2d Echo: no vegetations seen No leukocytosis FTT CVA MDD/Anxiety Anemia COPD DM2 Plan: -Continue to monitor off abx as clinically stable -10/19 SP empiric PO Linezolid and levaquin abx d# 7 -10/17 SP Tamiflu #5 -10/14 SP Vanco and Cefepime #2 -10/13 SP Levaquin x1 -If recurrent fevers, will obtain CT H/C/A/P w/ to evaluate for source of fever. -Ok for discharge from ID stand point -Monitor CBC/CMP, temperatures -aspiration precautions Subjective Allergies: Coded Allergies: No Known Allergies (Unverified , 05/06/18) Subjective afebrile off abx Objective Vital Signs Last 24 Hour Vital Signs Date Time Temp Pulse Resp B/P (MAP) Pulse Ox O2 Delivery O2 Flow Rate FiO2 10/27/18 12:00 97.4 71 16 85/54 (64) 98 10/27/18 09:00 Room Air 10/27/18 08:00 97.4 74 16 90/54 (66) 97 10/27/18 04:00 97.2 85 20 93/55 (68) 98 10/27/18 00:00 97.2 67 20 100/57 (71) 98 10/26/18 21:05 Room Air 10/26/18 20:00 97.0 78 20 92/62 (72) 98 10/26/18 16:00 98.4 85 18 92/55 (67) 98 Height (Feet): 5 Height (Inches): 11.00 Weight (Pounds): 130 Objective GENERAL: Calm in bed, oriented x2, HEENT: Jaw opens about 30% only, slight pain with movement. CARDIOVASCULAR: No murmur. LUNGS: Distant and clear. ABDOMEN: Bowel sounds positive. Nontender. Nondistended. EXTREMITIES: No cyanosis, clubbing, or edema. NEUROLOGIC: The patient moves all extremities, slightly weak. Current Medications Medications (Trade) Dose Ordered Sig/Tresa Route PRN Reason Start Time Stop Time Status Last Admin Dose Admin Acetaminophen (Tylenol) 650 mg Q4H PRN ORAL fever 10/10/18 21:30 11/09/18 21:29 10/14/18 03:09 Acetaminophen (Tylenol) 650 mg Q4H PRN ORAL Mild Pain (Pain Scale 1-3) 10/13/18 15:15 11/12/18 15:14 10/13/18 15:48 Al Hydroxide/Mg Hydroxide (Mylanta II) 30 ml Q6H PRN ORAL dyspepsia 10/10/18 21:30 11/09/18 21:29 Dextrose (Dextrose 50%) 25 ml Q30M PRN IV Hypoglycemia 10/10/18 21:30 11/09/18 21:29 Dextrose (Dextrose 50%) 50 ml Q30M PRN IV Hypoglycemia 10/10/18 21:30 11/09/18 21:29 Guaifenesin/ Dextromethorphan (Robitussin DM Syrup) 10 ml Q4H PRN ORAL For Cough 10/23/18 09:00 11/22/18 08:59 10/23/18 09:04 Heparin Sodium (Porcine) (Heparin 5000 units/ml) 5,000 units EVERY 12 HOURS SUBQ 10/11/18 09:00 11/10/18 08:59 10/27/18 08:23 Hydrocortisone (Hydrocortisone) 1 applic Q6H PRN TOPIC Itching 10/14/18 11:00 11/13/18 10:59 Insulin Aspart (NovoLOG) BEFORE MEALS AND HS SUBQ 10/11/18 06:30 11/10/18 06:29 Ondansetron HCl (Zofran) 4 mg Q6H PRN IVP Nausea & Vomiting 10/10/18 21:30 11/09/18 21:29 Polyethylene Glycol (Miralax) 17 gm HSPRN PRN ORAL Constipation 10/10/18 21:30 11/09/18 21:29 Risperidone (RisperDAL) 1 mg BID ORAL 10/11/18 09:00 11/10/18 08:59 10/27/18 08:17 Ally Horowitz M.D. Oct 27, 2018 13:18
[2018-10-27] MEDS ORDERED: Isovue-300 100ml vial INJ PRN (14:30)
--- NOTE | 2018-10-27 14:49 | General Progress Note ---
Assessment/Plan Problem List: (1) Failure to thrive SNOMED: 84808121 (2) Anemia ICD Codes: D64.9 - Anemia, unspecified SNOMED: 670602006 (3) Episode of generalized weakness ICD Codes: R53.1 - Weakness SNOMED: 75979506 (4) Diabetes mellitus ICD Codes: E11.9 - Type 2 diabetes mellitus without complications SNOMED: 97133998 (5) History of CVA (cerebrovascular accident) ICD Codes: Z86.73 - Personal history of transient ischemic attack (TIA), and cerebral infarction without residual deficits SNOMED: 002608940 (6) Protein-calorie malnutrition, severe ICD Codes: E43 - Unspecified severe protein-calorie malnutrition SNOMED: 458596377 Status: unchanged Assessment/Plan ot pt diet cbc bmp am neuro eval dc w hh if clear Subjective Constitutional: Reports: weakness Allergies: Coded Allergies: No Known Allergies (Unverified , 05/06/18) All Systems: reviewed and negative except above Subjective sleepy calm Objective Last 24 Hour Vital Signs Date Time Temp Pulse Resp B/P (MAP) Pulse Ox O2 Delivery O2 Flow Rate FiO2 10/27/18 12:00 97.4 71 16 85/54 (64) 98 10/27/18 09:00 Room Air 10/27/18 08:00 97.4 74 16 90/54 (66) 97 10/27/18 04:00 97.2 85 20 93/55 (68) 98 10/27/18 00:00 97.2 67 20 100/57 (71) 98 10/26/18 21:05 Room Air 10/26/18 20:00 97.0 78 20 92/62 (72) 98 10/26/18 16:00 98.4 85 18 92/55 (67) 98 Intake and Output 10/26/18 10/27/18 19:00 07:00 Intake Total 360 ml 600 ml Balance 360 ml 600 ml Intake Oral 360 ml 600 ml # Voids 2 3 Height (Feet): 5 Height (Inches): 11.00 Weight (Pounds): 130 General Appearance: lethargic EENT: normal ENT inspection Neck: normal alignment Cardiovascular: normal peripheral pulses, normal rate, regular rhythm Respiratory/Chest: chest wall non-tender, lungs clear, normal breath sounds Abdomen: normal bowel sounds, non tender, soft Extremities: normal inspection Edema: no edema noted Arm (L), no edema noted Arm (R), no edema noted Leg (L), no edema noted Leg (R), no edema noted Pedal (L), no edema noted Pedal (R), no edema noted Generalized Neurologic: motor weakness Skin: normal pigmentation, warm/dry Rolando Albright DO Oct 27, 2018 14:49
[2018-10-27 16:00] VITALS: BP 93/58
--- NOTE | 2018-10-27 16:52 | Diagnostic Imaging Report ---
Indications: Facial and neck swelling Technique: Spiral images obtained through the facial bones. No IV contrast utilized, due to lack of IV access. Multiplanar reconstructions were generated.Total dose length product 615.49 mGycm. CTDIvol(s) 28.19 mGy. Dose reduction achieved using automated exposure control Comparison: none Findings: There is unusual appearance to the mandibular ramus bilaterally, with involvement of the mandibular necks and coronoid process, with abrupt demarcation between abnormal and normal bone at the level of mandibular angle. Appearance is expansile, with mixed osteolytic, osteosclerotic, and groundglass appearance, loss of normal cortical medullary differentiation. There is marked abnormality of the bilateral temporomandibular joints, with essentially obliteration of the joints spaces, abnormal appearance of the bilateral mandible nor enhance. In addition, there is apparent ankylosis of the left temporomandibular joint and possibly of the right temporomandibular joint. The left glenoid fossa region of the temporal bone demonstrates homogeneous sclerotic pattern, whereas that on the right demonstrates areas of lucency. There appears to be ankylosis of the anterior atlantoaxial joint, with the head and C1 in a fixed rightward tilt relative to the atlas. There appears to be ankylosis of the atlantooccipital joints and of the bilateral C1-C2 facets. The cervical spine demonstrates scoliotic deformity and ankylosis of the facets as well. There is suggestion of ankylosis of the lateral margins of several discs There is mild thickening of the facial dermis, equivocal slight infiltration of the bilateral malar region subcutaneous fat. No definite discrete fluid collections to suggest abscess. The nasopharynx is unremarkable. The oropharynx is asymmetric, presumably related to the rotation of the head versus the neck. The optic globes are intact. The retroseptal orbits are unremarkable. Numerous prominent but not frankly enlarged cervical nodes are noted. Impression: Very unusual appearance to the bilateral mandibles and temporomandibular joints. 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 However, there also appears to be ankylosis of the bilateral temporomandibular joints and nonspecific abnormality of the glenoid fossa regions, as described. 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 Correlate with clinical findings as regards mobility of the head and neck Diffuse dermal thickening, significance/etiology uncertain. Correlate with clinical findings. No evidence of significant subcutaneous fat infiltration, soft tissue swelling, or abscess. Note, however, that evaluation is limited given the absence of IV contrast administration. Findings discussed by phone with Dr. Macias at the time of interpretation The CT scanner at [facility] is accredited by the [employer] and the scans are performed using protocols designed to limit radiation exposure to as low as reasonably achievable to attain images of sufficient resolution adequate for diagnostic evaluation.
[2018-10-27 20:00] VITALS: BP 100/62
[2018-10-28] VITALS: BP 88/54
[2018-10-28 04:00] VITALS: BP 115/63
[2018-10-28] MEDS: NovoLOG Insulin Flexpen SUBQ SCH ×4 (06:30→21:00)
[2018-10-28 08:00] VITALS: BP 86/49
[2018-10-28] MEDS: Heparin 5000 units/ml inj SUBQ SCH ×2 (09:46→21:06)
[2018-10-28 12:00] VITALS: BP 94/61
--- NOTE | 2018-10-28 12:06 | Pulmonology Progress Note ---
Assessment/Plan Problems: (1) Sepsis (2) Dysphagia (3) Protein-calorie malnutrition, severe (4) Anemia (5) Diabetes mellitus (6) History of CVA (cerebrovascular accident) Assessment/Plan eating better CT of facial bones showed Very unusual appearance to the bilateral mandibles and temporomandibular joints. 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 However, there also appears to be ankylosis of the bilateral temporomandibular joints Apparent ankylosis of essentially the entire visualized cervical spine as well as the atlantooccipital joints, with levoscoliotic deformity of the cervical spine and the head fused in a rightward tilt. pt's condition seems to be very chronic and long standing. There is no need for transfer to another acute care facility. Pt can be sent to previous setting with outpatient follow up with county. I doubt that there is any surgical viable option. Subjective ROS Limited/Unobtainable: Yes Allergies: Coded Allergies: No Known Allergies (Unverified , 05/06/18) Objective Last 24 Hour Vital Signs Date Time Temp Pulse Resp B/P (MAP) Pulse Ox O2 Delivery O2 Flow Rate FiO2 10/28/18 09:00 Room Air 10/28/18 08:00 97.5 74 18 86/49 (61) 100 10/28/18 04:00 97.1 69 19 115/63 (80) 99 10/28/18 00:00 97.3 66 19 88/54 (65) 98 10/27/18 21:00 Room Air 10/27/18 20:00 97.4 74 19 100/62 (75) 97 10/27/18 16:00 97.1 75 16 93/58 (70) 97 Intake and Output 10/27/18 10/28/18 19:00 07:00 Intake Total 1220 ml 1220 ml Output Total 1300 ml 900 ml Balance -80 ml 320 ml Intake Oral 1220 ml 1220 ml Output Urine Total 1300 ml 900 ml # Voids 5 5 Objective General Appearance: WD/WN HEENT: normocephalic Respiratory/Chest: chest wall non-tender, lungs clear, normal breath sounds Cardiovascular: normal peripheral pulses, normal rate Abdomen: normal bowel sounds, soft, non tender Genitourinary: normal external genitalia Extremities: no clubbing Skin: no rash Current Medications Medications (Trade) Dose Ordered Sig/Tresa Route PRN Reason Start Time Stop Time Status Last Admin Dose Admin Acetaminophen (Tylenol) 650 mg Q4H PRN ORAL fever 10/10/18 21:30 11/09/18 21:29 10/14/18 03:09 Acetaminophen (Tylenol) 650 mg Q4H PRN ORAL Mild Pain (Pain Scale 1-3) 10/13/18 15:15 11/12/18 15:14 10/13/18 15:48 Al Hydroxide/Mg Hydroxide (Mylanta II) 30 ml Q6H PRN ORAL dyspepsia 10/10/18 21:30 11/09/18 21:29 Dextrose (Dextrose 50%) 25 ml Q30M PRN IV Hypoglycemia 10/10/18 21:30 11/09/18 21:29 Dextrose (Dextrose 50%) 50 ml Q30M PRN IV Hypoglycemia 10/10/18 21:30 11/09/18 21:29 Guaifenesin/ Dextromethorphan (Robitussin DM Syrup) 10 ml Q4H PRN ORAL For Cough 10/23/18 09:00 11/22/18 08:59 10/23/18 09:04 Heparin Sodium (Porcine) (Heparin 5000 units/ml) 5,000 units EVERY 12 HOURS SUBQ 10/11/18 09:00 11/10/18 08:59 10/28/18 09:46 Hydrocortisone (Hydrocortisone) 1 applic Q6H PRN TOPIC Itching 10/14/18 11:00 11/13/18 10:59 Insulin Aspart (NovoLOG) BEFORE MEALS AND HS SUBQ 10/11/18 06:30 11/10/18 06:29 Iopamidol (Isovue-300 100ml) 100 ml NOW PRN INJ Radiology Procedure 10/27/18 14:30 10/29/18 14:30 Ondansetron HCl (Zofran) 4 mg Q6H PRN IVP Nausea & Vomiting 10/10/18 21:30 11/09/18 21:29 Polyethylene Glycol (Miralax) 17 gm HSPRN PRN ORAL Constipation 10/10/18 21:30 11/09/18 21:29 Risperidone (RisperDAL) 1 mg BID ORAL 10/11/18 09:00 11/10/18 08:59 10/28/18 09:44 Galilea Macias MD Oct 28, 2018 12:06
--- NOTE | 2018-10-28 12:18 | GI Progress Note ---
Assessment/Plan Problems: (1) History of CVA (cerebrovascular accident) ICD Codes: Z86.73 - Personal history of transient ischemic attack (TIA), and cerebral infarction without residual deficits SNOMED: 910559225 (2) Severe malnutrition ICD Codes: E43 - Unspecified severe protein-calorie malnutrition SNOMED: 48947780 (3) Dysphagia ICD Codes: R13.10 - Dysphagia, unspecified SNOMED: 38804213, 626200688 (4) Anemia ICD Codes: D64.9 - Anemia, unspecified SNOMED: 953476877 (5) Failure to thrive SNOMED: 63453260 (6) Protein-calorie malnutrition, severe ICD Codes: E43 - Unspecified severe protein-calorie malnutrition SNOMED: 283467890 Status: stable Status Narrative Discussed with Dr. Wilson Assessment/Plan s/p CVA ST evaluation noted >> cont current diet calorie count >> nutrition needs met Patient does not need PEG at this time okay for DC per GI standpoint supportive care at this time push PO OB stool r/o GI bleed not collected monitor H&H, prn transfusions bowel regime >> colace daily ppi fu labs marinol Physical therapy evaluation The patient was seen and examined at bedside and all new and available data was reviewed in the patients chart. I agree with the above findings, impression and plan. (Patient seen earlier today. Signature stamp does not reflect patient encounter time.). - Kp Wilson MD Subjective Subjective tolerating diet No nausea or vomiting refusing AM lab draws Refusing G-tube placement Objective Last 24 Hour Vital Signs Date Time Temp Pulse Resp B/P (MAP) Pulse Ox O2 Delivery O2 Flow Rate FiO2 10/28/18 09:00 Room Air 10/28/18 08:00 97.5 74 18 86/49 (61) 100 10/28/18 04:00 97.1 69 19 115/63 (80) 99 10/28/18 00:00 97.3 66 19 88/54 (65) 98 10/27/18 21:00 Room Air 10/27/18 20:00 97.4 74 19 100/62 (75) 97 10/27/18 16:00 97.1 75 16 93/58 (70) 97 Intake and Output 10/27/18 10/28/18 19:00 07:00 Intake Total 1220 ml 1220 ml Output Total 1300 ml 900 ml Balance -80 ml 320 ml Intake Oral 1220 ml 1220 ml Output Urine Total 1300 ml 900 ml # Voids 5 5 Height (Feet): 5 Height (Inches): 11.00 Weight (Pounds): 130 General Appearance: WD/WN, no apparent distress, alert, thin Cardiovascular: normal rate Respiratory/Chest: normal breath sounds, no respiratory distress Abdominal Exam: normal bowel sounds, non tender, soft Extremities: normal range of motion, non-tender Miguel Guerrero NP Oct 28, 2018 12:18
--- NOTE | 2018-10-28 14:44 | General Progress Note ---
Assessment/Plan Problem List: (1) Failure to thrive SNOMED: 52811962 (2) Anemia ICD Codes: D64.9 - Anemia, unspecified SNOMED: 005897536 (3) Episode of generalized weakness ICD Codes: R53.1 - Weakness SNOMED: 90423731 (4) Diabetes mellitus ICD Codes: E11.9 - Type 2 diabetes mellitus without complications SNOMED: 20856698 (5) History of CVA (cerebrovascular accident) ICD Codes: Z86.73 - Personal history of transient ischemic attack (TIA), and cerebral infarction without residual deficits SNOMED: 764077498 (6) Protein-calorie malnutrition, severe ICD Codes: E43 - Unspecified severe protein-calorie malnutrition SNOMED: 638452065 Status: stable, progressing Assessment/Plan ot pt diet cbc bmp am neuro eval possible peg Subjective Constitutional: Reports: weakness Allergies: Coded Allergies: No Known Allergies (Unverified , 05/06/18) All Systems: reviewed and negative except above Subjective sleepy calm Objective Last 24 Hour Vital Signs Date Time Temp Pulse Resp B/P (MAP) Pulse Ox O2 Delivery O2 Flow Rate FiO2 10/28/18 12:00 98.1 72 16 94/61 (72) 98 10/28/18 09:00 Room Air 10/28/18 08:00 97.5 74 18 86/49 (61) 100 10/28/18 04:00 97.1 69 19 115/63 (80) 99 10/28/18 00:00 97.3 66 19 88/54 (65) 98 10/27/18 21:00 Room Air 10/27/18 20:00 97.4 74 19 100/62 (75) 97 10/27/18 16:00 97.1 75 16 93/58 (70) 97 Intake and Output 10/27/18 10/28/18 19:00 07:00 Intake Total 1220 ml 1220 ml Output Total 1300 ml 900 ml Balance -80 ml 320 ml Intake Oral 1220 ml 1220 ml Output Urine Total 1300 ml 900 ml # Voids 5 5 Height (Feet): 5 Height (Inches): 11.00 Weight (Pounds): 130 General Appearance: lethargic EENT: normal ENT inspection Neck: normal alignment Cardiovascular: normal peripheral pulses, normal rate, regular rhythm Respiratory/Chest: chest wall non-tender, lungs clear, normal breath sounds Abdomen: normal bowel sounds, non tender, soft Extremities: normal inspection Edema: no edema noted Arm (L), no edema noted Arm (R), no edema noted Leg (L), no edema noted Leg (R), no edema noted Pedal (L), no edema noted Pedal (R), no edema noted Generalized Neurologic: motor weakness Skin: normal pigmentation, warm/dry Rolando Albright DO Oct 28, 2018 14:44
--- NOTE | 2018-10-28 15:05 | Infectious Diseases Prog Note ---
Assessment/Plan Assessment/Plan Assessment/Plan Sepsis, SP- ?unclear source- r/o bacteremia. endocarditis, acute hIV -CXR: no acute disease -influenza sc neg -u.a neg Fever, Sp -2d Echo: no vegetations seen No leukocytosis FTT -CT neck: Very unusual appearance to the bilateral mandibles and temporomandibular joints. 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 However, there also appears to be ankylosis of the bilateral temporomandibular joints and nonspecific abnormality of the glenoid fossa regions, as described. 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 Correlate with clinical findings as regards mobility of the head and neck. Diffuse dermal thickening, significance/etiology uncertain. Correlate with clinical findings. No evidence of significant subcutaneous fat infiltration, soft tissue swelling, or abscess. CVA MDD/Anxiety Anemia COPD DM2 Plan: -Continue to monitor off abx as clinically stable -10/19 SP empiric PO Linezolid and levaquin abx d# 7 -/ SP Tamiflu #5 -12/6 SP Vanco and Cefepime #2 -/ SP Levaquin x1 -If recurrent fevers, will obtain CT H/C/A/P w/ to evaluate for source of fever. -Ok for discharge from ID stand point -Monitor CBC/CMP, temperatures -aspiration precautions Subjective Allergies: Coded Allergies: No Known Allergies (Unverified , 05/06/18) Subjective afebrile off abx Objective Vital Signs Last 24 Hour Vital Signs Date Time Temp Pulse Resp B/P (MAP) Pulse Ox O2 Delivery O2 Flow Rate FiO2 10/28/18 12:00 98.1 72 16 94/61 (72) 98 10/28/18 09:00 Room Air 10/28/18 08:00 97.5 74 18 86/49 (61) 100 10/28/18 04:00 97.1 69 19 115/63 (80) 99 10/28/18 00:00 97.3 66 19 88/54 (65) 98 10/27/18 21:00 Room Air 10/27/18 20:00 97.4 74 19 100/62 (75) 97 10/27/18 16:00 97.1 75 16 93/58 (70) 97 Height (Feet): 5 Height (Inches): 11.00 Weight (Pounds): 130 Objective GENERAL: Calm in bed, oriented x2, HEENT: Jaw opens about 30% only, slight pain with movement. CARDIOVASCULAR: No murmur. LUNGS: Distant and clear. ABDOMEN: Bowel sounds positive. Nontender. Nondistended. EXTREMITIES: No cyanosis, clubbing, or edema. NEUROLOGIC: The patient moves all extremities, slightly weak. Current Medications Medications (Trade) Dose Ordered Sig/Tresa Route PRN Reason Start Time Stop Time Status Last Admin Dose Admin Acetaminophen (Tylenol) 650 mg Q4H PRN ORAL fever 10/10/18 21:30 11/09/18 21:29 10/14/18 03:09 Acetaminophen (Tylenol) 650 mg Q4H PRN ORAL Mild Pain (Pain Scale 1-3) 10/13/18 15:15 11/12/18 15:14 10/13/18 15:48 Al Hydroxide/Mg Hydroxide (Mylanta II) 30 ml Q6H PRN ORAL dyspepsia 10/10/18 21:30 11/09/18 21:29 Dextrose (Dextrose 50%) 25 ml Q30M PRN IV Hypoglycemia 10/10/18 21:30 11/09/18 21:29 Dextrose (Dextrose 50%) 50 ml Q30M PRN IV Hypoglycemia 10/10/18 21:30 11/09/18 21:29 Guaifenesin/ Dextromethorphan (Robitussin DM Syrup) 10 ml Q4H PRN ORAL For Cough 10/23/18 09:00 11/22/18 08:59 10/23/18 09:04 Heparin Sodium (Porcine) (Heparin 5000 units/ml) 5,000 units EVERY 12 HOURS SUBQ 10/11/18 09:00 11/10/18 08:59 10/28/18 09:46 Hydrocortisone (Hydrocortisone) 1 applic Q6H PRN TOPIC Itching 10/14/18 11:00 11/13/18 10:59 Insulin Aspart (NovoLOG) BEFORE MEALS AND HS SUBQ 10/11/18 06:30 11/10/18 06:29 Iopamidol (Isovue-300 100ml) 100 ml NOW PRN INJ Radiology Procedure 10/27/18 14:30 10/29/18 14:30 Ondansetron HCl (Zofran) 4 mg Q6H PRN IVP Nausea & Vomiting 10/10/18 21:30 11/09/18 21:29 Polyethylene Glycol (Miralax) 17 gm HSPRN PRN ORAL Constipation 10/10/18 21:30 11/09/18 21:29 Risperidone (RisperDAL) 1 mg BID ORAL 10/11/18 09:00 11/10/18 08:59 10/28/18 09:44 Ally Horowitz M.D. Oct 28, 2018 15:05
[2018-10-28 16:00] VITALS: BP 91/55
[2018-10-28 20:00] VITALS: BP 102/63
[2018-10-29] VITALS: BP 98/60
[2018-10-29 04:00] VITALS: BP 100/67
[2018-10-29] MEDS: NovoLOG Insulin Flexpen SUBQ SCH ×3 (06:30→16:30)
[2018-10-29 08:00] VITALS: BP 86/51
[2018-10-29] MEDS: Heparin 5000 units/ml inj SUBQ SCH (09:21)
[2018-10-29 12:00] VITALS: BP 103/56
--- NOTE | 2018-10-29 13:56 | General Progress Note ---
Assessment/Plan Problem List: (1) Failure to thrive SNOMED: 21194643 (2) Anemia ICD Codes: D64.9 - Anemia, unspecified SNOMED: 931548719 (3) Episode of generalized weakness ICD Codes: R53.1 - Weakness SNOMED: 38523250 (4) Diabetes mellitus ICD Codes: E11.9 - Type 2 diabetes mellitus without complications SNOMED: 99969574 (5) History of CVA (cerebrovascular accident) ICD Codes: Z86.73 - Personal history of transient ischemic attack (TIA), and cerebral infarction without residual deficits SNOMED: 030071612 (6) Protein-calorie malnutrition, severe ICD Codes: E43 - Unspecified severe protein-calorie malnutrition SNOMED: 105183649 Status: stable, progressing Assessment/Plan ot pt diet cbc bmp am neuro dc if clear Subjective Constitutional: Reports: weakness Allergies: Coded Allergies: No Known Allergies (Unverified , 05/06/18) All Systems: reviewed and negative except above Subjective sleepy calm Objective Last 24 Hour Vital Signs Date Time Temp Pulse Resp B/P (MAP) Pulse Ox O2 Delivery O2 Flow Rate FiO2 10/29/18 12:00 97.7 76 19 103/56 (72) 100 10/29/18 09:00 Room Air 10/29/18 08:00 97.3 73 20 86/51 (63) 100 10/29/18 04:00 98.4 75 20 100/67 (78) 97 10/29/18 00:00 98.2 70 18 98/60 (73) 98 10/28/18 21:00 Room Air 10/28/18 20:00 97.0 77 18 102/63 (76) 98 10/28/18 16:00 97.2 74 15 91/55 (67) 100 Intake and Output 10/28/18 10/29/18 19:00 07:00 Intake Total 450 ml 800 ml Output Total 600 ml Balance 450 ml 200 ml Intake Oral 450 ml 800 ml Output Urine Total 600 ml # Voids 3 1 Height (Feet): 5 Height (Inches): 11.00 Weight (Pounds): 130 General Appearance: alert EENT: normal ENT inspection Neck: normal alignment Cardiovascular: normal peripheral pulses, normal rate, regular rhythm Respiratory/Chest: chest wall non-tender, lungs clear, normal breath sounds Abdomen: normal bowel sounds, non tender, soft Extremities: normal inspection Edema: no edema noted Arm (L), no edema noted Arm (R), no edema noted Leg (L), no edema noted Leg (R), no edema noted Pedal (L), no edema noted Pedal (R), no edema noted Generalized Neurologic: responsive, motor weakness Skin: normal pigmentation, warm/dry Rolando Albright DO Oct 29, 2018 13:56
--- NOTE | 2018-10-29 14:52 | GI Progress Note ---
Assessment/Plan Problems: (1) History of CVA (cerebrovascular accident) ICD Codes: Z86.73 - Personal history of transient ischemic attack (TIA), and cerebral infarction without residual deficits SNOMED: 650480525 (2) Severe malnutrition ICD Codes: E43 - Unspecified severe protein-calorie malnutrition SNOMED: 16226987 (3) Dysphagia ICD Codes: R13.10 - Dysphagia, unspecified SNOMED: 96496991, 482360683 (4) Anemia ICD Codes: D64.9 - Anemia, unspecified SNOMED: 152286513 (5) Failure to thrive SNOMED: 44370493 (6) Protein-calorie malnutrition, severe ICD Codes: E43 - Unspecified severe protein-calorie malnutrition SNOMED: 417720996 Status: progressing Status Narrative Discussed with Dr. Wilson Assessment/Plan s/p CVA ST evaluation noted >> cont current diet calorie count >> nutrition needs met Patient does not need PEG at this time okay for DC per GI standpoint supportive care at this time push PO OB stool r/o GI bleed not collected monitor H&H, prn transfusions bowel regime >> colace daily ppi fu labs marinol Physical therapy evaluation The patient was seen and examined at bedside and all new and available data was reviewed in the patients chart. I agree with the above findings, impression and plan. (Patient seen earlier today. Signature stamp does not reflect patient encounter time.). - Kp Wilson MD Subjective Subjective tolerating diet No nausea or vomiting refusing AM lab draws Refusing G-tube placement Objective Last 24 Hour Vital Signs Date Time Temp Pulse Resp B/P (MAP) Pulse Ox O2 Delivery O2 Flow Rate FiO2 10/29/18 12:00 97.7 76 19 103/56 (72) 100 10/29/18 09:00 Room Air 10/29/18 08:00 97.3 73 20 86/51 (63) 100 10/29/18 04:00 98.4 75 20 100/67 (78) 97 10/29/18 00:00 98.2 70 18 98/60 (73) 98 10/28/18 21:00 Room Air 10/28/18 20:00 97.0 77 18 102/63 (76) 98 10/28/18 16:00 97.2 74 15 91/55 (67) 100 Intake and Output 10/28/18 10/29/18 19:00 07:00 Intake Total 450 ml 800 ml Output Total 600 ml Balance 450 ml 200 ml Intake Oral 450 ml 800 ml Output Urine Total 600 ml # Voids 3 1 Height (Feet): 5 Height (Inches): 11.00 Weight (Pounds): 130 General Appearance: WD/WN, no apparent distress, alert, thin Cardiovascular: normal rate Respiratory/Chest: normal breath sounds, no respiratory distress Abdominal Exam: normal bowel sounds, non tender, soft Extremities: normal range of motion, non-tender Miguel Guerrero PROCESS PLANT OPERATOR Oct 29, 2018 14:52
[2018-10-29 16:00] VITALS: BP 97/61
--- NOTE | 2018-10-29 16:01 | Infectious Diseases Prog Note ---
Assessment/Plan Assessment/Plan Assessment/Plan Sepsis, SP- ?unclear source- r/o bacteremia. endocarditis, acute hIV -CXR: no acute disease -influenza sc neg -u.a neg Fever, Sp -2d Echo: no vegetations seen No leukocytosis FTT -CT neck: Very unusual appearance to the bilateral mandibles and temporomandibular joints. 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 However, there also appears to be ankylosis of the bilateral temporomandibular joints and nonspecific abnormality of the glenoid fossa regions, as described. 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 Correlate with clinical findings as regards mobility of the head and neck. Diffuse dermal thickening, significance/etiology uncertain. Correlate with clinical findings. No evidence of significant subcutaneous fat infiltration, soft tissue swelling, or abscess. CVA MDD/Anxiety Anemia COPD DM2 Plan: -Continue to monitor off abx as clinically stable -10/19 SP empiric PO Linezolid and levaquin abx d# 7 -/ SP Tamiflu #5 -12/6 SP Vanco and Cefepime #2 -12/ SP Levaquin x1 -If recurrent fevers, will obtain CT H/C/A/P w/ to evaluate for source of fever. -Ok for discharge from ID stand point -Monitor CBC/CMP, temperatures -aspiration precautions Subjective Allergies: Coded Allergies: No Known Allergies (Unverified , 05/06/18) Subjective afebrile off abx Objective Vital Signs Last 24 Hour Vital Signs Date Time Temp Pulse Resp B/P (MAP) Pulse Ox O2 Delivery O2 Flow Rate FiO2 10/29/18 12:00 97.7 76 19 103/56 (72) 100 10/29/18 09:00 Room Air 10/29/18 08:00 97.3 73 20 86/51 (63) 100 10/29/18 04:00 98.4 75 20 100/67 (78) 97 10/29/18 00:00 98.2 70 18 98/60 (73) 98 10/28/18 21:00 Room Air 10/28/18 20:00 97.0 77 18 102/63 (76) 98 Height (Feet): 5 Height (Inches): 11.00 Weight (Pounds): 130 Objective GENERAL: Calm in bed, oriented x2, HEENT: Jaw opens about 30% only, slight pain with movement. CARDIOVASCULAR: No murmur. LUNGS: Distant and clear. ABDOMEN: Bowel sounds positive. Nontender. Nondistended. EXTREMITIES: No cyanosis, clubbing, or edema. NEUROLOGIC: The patient moves all extremities, slightly weak. Current Medications Medications (Trade) Dose Ordered Sig/Tresa Route PRN Reason Start Time Stop Time Status Last Admin Dose Admin Acetaminophen (Tylenol) 650 mg Q4H PRN ORAL fever 10/10/18 21:30 11/09/18 21:29 10/14/18 03:09 Acetaminophen (Tylenol) 650 mg Q4H PRN ORAL Mild Pain (Pain Scale 1-3) 10/13/18 15:15 11/12/18 15:14 10/13/18 15:48 Al Hydroxide/Mg Hydroxide (Mylanta II) 30 ml Q6H PRN ORAL dyspepsia 10/10/18 21:30 11/09/18 21:29 Dextrose (Dextrose 50%) 25 ml Q30M PRN IV Hypoglycemia 10/10/18 21:30 11/09/18 21:29 Dextrose (Dextrose 50%) 50 ml Q30M PRN IV Hypoglycemia 10/10/18 21:30 11/09/18 21:29 Guaifenesin/ Dextromethorphan (Robitussin DM Syrup) 10 ml Q4H PRN ORAL For Cough 10/23/18 09:00 11/22/18 08:59 10/23/18 09:04 Heparin Sodium (Porcine) (Heparin 5000 units/ml) 5,000 units EVERY 12 HOURS SUBQ 10/11/18 09:00 11/10/18 08:59 10/29/18 09:21 Hydrocortisone (Hydrocortisone) 1 applic Q6H PRN TOPIC Itching 10/14/18 11:00 11/13/18 10:59 Insulin Aspart (NovoLOG) BEFORE MEALS AND HS SUBQ 10/11/18 06:30 11/10/18 06:29 Ondansetron HCl (Zofran) 4 mg Q6H PRN IVP Nausea & Vomiting 10/10/18 21:30 11/09/18 21:29 Polyethylene Glycol (Miralax) 17 gm HSPRN PRN ORAL Constipation 10/10/18 21:30 11/09/18 21:29 Risperidone (RisperDAL) 1 mg BID ORAL 10/11/18 09:00 11/10/18 08:59 10/29/18 09:14 Ally Horowitz M.D. Oct 29, 2018 16:01
--- NOTE | 2018-11-01 14:28 | Cardiology Report ---
APPROVED REPORT EKG Measurement Heart [id number] IA 120P48 [id number] Sinus tachycardia Otherwise normal ECG
--- NOTE | 2018-11-02 14:12 | Discharge Summary ---
Discharge Summary Discharge Summary _ DATE OF ADMISSION: 10/10/2018 DATE OF DISCHARGE: 10/29/2018 DISCHARGED BY: Dr. Albright REASON FOR ADMISSION: 37 years old male with past medical history of COPD, diabetes mellitus type 2 , anemia, history of prior CVA, depression, anxiety, presented with increased generalized weakness. Patient reported being debilitated after prior CVA. Patient had difficulty with eating after last CVA. Upon evaluation vital signs revealed tachycardia with heart rate 108 ,pulse oximetry was 90% on 2 L of oxygen via nasal cannula. Workup revealed no leukocytosis ,hemoglobin 11.1 hematocrit 32.1. Coagulation profile was stable Chemistry was unremarkable. Albumin 2.3. TSH within normal limits. Urinalysis revealed +1 protein, +4 blood and microscopic hematuria. No evidence of urinary tract infection. Urine toxicology screen was negative. Serum alcohol and Tylenol level were negative. Chest x-ray revealed no acute cardiopulmonary process. Patient admitted for further management with diagnoses of generalized weakness, failure to thrive ,dysphagia,severe protein calorie malnutrition ,anemia, diabetes mellitus ,history of CVA. CONSULTANTS: pulmonary Dr. Macias ID specialist Dr. Chandra GI specialist Dr. Wilson coordinator integrated marketing/oncologist Dr. Hernández psychotherapist. [facility] COURSE: Patient admitted to medical surgical floor and started on IV fluids. Patient developed high fevers for the next 2 days, as high as 102.7. Patient declined any blood draw. Patient started on empiric antibiotic as per ID specialist recommendations. Influenza screen test was negative. Urinalysis revealed no evidence of UTI. Chest x-ray revealed no acute cardiopulmonary pathology. Source of sepsis was unclear. Infectious disease doctor wanted to rule out bacteremia, endocarditis as well as the active HIV infection. Echocardiogram revealed ejection fraction of 60%. No evidence of left ventricular hypertrophy. No evidence of wall motion abnormality. Right ventricular systolic pressure 25. No evidence of vegetation. CT of the facial bones demonstrated very unusual appearance of the bilateral mandibles and temporomandibular joints. 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 There also appeared to be ankylosis of the bilateral temporomandibular joints and nonspecific abnormality of the glenoid fossa regions. 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 Diffuse dermal thickening, significance/etiology uncertain. No evidence of significant subcutaneous fat infiltration, soft tissue swelling, or abscess. N Fevers resolved . Patient declined blood draws. Patient status post empiric linezolid and Levaquin for 7 days. Patient also undergone empiric treatment with Tamiflu, despite negative influenza screen. ID specialist recommended to keep patient off antibiotic and observe closely. If recurrent fevers return, recommended to obtain CT of the head , chest , abdomen , and pelvis to evaluate for source of fever. Strict aspiration precautions were maintained. Bedside swallow evaluation revealed evidence of dysphagia. Diet provided as per speech therapist recommendations with strict aspiration and reflux precautions. Speech therapist recommended consider outpatient referral to oral surgeon who specializes in lockjaw/trismus to make further recommendations. District Manager [employer] recommendation implemented in plan of care to improve nutritional status. GI specialist followed. Patient undergone calorie count and nutritional needs were met. Per GI specialist , no need for G tube placement at this time. Oral fluids were pushed, supportive care provided . Hemoglobin and hematocrit were closely monitored with goal to keep hemoglobin above 7, remained stable . Bowel regimen regimen instituted. Patient started on PPI. Patient started on appetite stimulant with Marinol. Patient was working with physical therapist. Blood sugar was managed with sliding scale of insulin. DVT prophylaxis provided. Pain management was addressed as needed. Noted elevated protein. Serum and urine protein electrophoresis were ordered by coordinator integrated marketing. Patient declined blood draw . Psychotherapist followed. Patient with schizoaffective disorder bipolar type. Risperdal continued, Supportive psychotherapy provided. Placement was arranged to transitional housing by rn social work. Patient was stable for discharge FINAL DIAGNOSES Severe sepsis , etiology unclear Severe protein calorie malnutrition Dysphagia Anemia of chronic disease History of CVA COPD Diabetes mellitus type 2 Major depression disorder Anxiety disorder Schizoaffective disorder bipolar type Ankylosis of the cervical spine Hyperproteinemia DISCHARGE MEDICATIONS: See Medication Reconciliation list. DISCHARGE INSTRUCTIONS: Patient was discharged to transitional housing . I have been assigned to dictate discharge summary for this account. I was not involved in the patient's management. Jessica Henson NP Nov 02, 2018 14:12
== END 2018-10-29 18:40 | DRG 720 ==
LOC: EDBD 16:03 → EMR 16:50 → 4E 19:33 → EDBEDREQ 20:13 → 3E 10-17 16:30
DX: A41.9 Sepsis, unspecified organism (principal); E43 Unspecified severe protein-calorie malnutrition; R13.10 Dysphagia, unspecified; F25.0 Schizoaffective disorder, bipolar type; E88.09 Other disorders of plasma-protein metabolism, not elsewhere classified; R65.20 Severe sepsis without septic shock; D63.8 Anemia in other chronic diseases classified elsewhere; F32.9 Major depressive disorder, single episode, unspecified; M43.22 Fusion of spine, cervical region; M27.8 Other specified diseases of jaws; M24.60 Ankylosis, unspecified joint; Z86.73 Personal history of transient ischemic attack (TIA), and cerebral infarction without residual deficits; R62.7 Adult failure to thrive; E11.9 Type 2 diabetes mellitus without complications; D47.3 Essential (hemorrhagic) thrombocythemia; Z68.21 Body mass index [BMI] 21.0-21.9, adult
CPT/HCPCS: 36415; 70486; 71045; 80053; 80307; 80329; 81003; 82009; 82962; 84165; 84443; 85025; 85610; 85730; 86710; 87081; 93005; 93306; 96361; 96374; 97803; 99284; J1815